=== PATIENT | male | born 1955 | race Caucasian/White ===

== ENCOUNTER 2024-04-19 19:01 | Inpatient (IN) | payer OTHER, SELFPAY ==
[2024-04-19] VITALS (7 sets, daily range): BP systolic 122–173; BP diastolic 64–106; BMI 28.8
[2024-04-19 15:44] LABS: % Basophils 0.2 % (0-2); % Immature Granulocytes 1.2 % (0-0.5); % Lymphocytes 13.2 % (20.5-51.1); % Neutrophils 81.4 % (42.2-75.2); Absolute Immature Granulocytes 0.1 10^3/uL (0-0.05); Absolute Lymphocytes 1.4 10^3/uL (1.2-3.4); Absolute Monocytes 0.4 10^3/uL (0.1-0.6); Absolute Neutrophils 8.8 10^3/uL (1.4-6.5); Hematocrit 32.5 % (39.0-52.0); Hemoglobin 10.8 g/dL (13.0-18.0); Mean Corp Hgb Conc. 33.2 g/dL (33.0-37.0); Mean Corpuscular Hgb 29.1 pg (27.0-31.0); Mean Corpuscular Volume 87.6 fL (80.0-94.0); Mean Platelet Volume 10.1 fL (7.4-10.4); Nucleated Red Blood Cells % 0 % (-); Platelet Count 272 10^3/uL (130-400); Red Blood Cell Count 3.71 10^6/uL (4.70-6.10); Red Cell Dist. Width 14.4 % (11.5-14.5); White Blood Cell Count 10.8 10^3/uL (4.8-10.8)
[2024-04-19 16:37] LABS: NT-proBNP 117 pg/ml
[2024-04-19 17:11] LABS: ALT (SGPT) 18 U/L (0-50); AST (SGOT) 17 U/L (17-59); Albumin 4.2 g/dl (3.5-5.0); Alkaline Phosphatase 81 U/L (38-126); Blood Urea Nitrogen 24 mg/dl (9-20); Calcium 9.3 mg/dl (8.4-10.2); Carbon Dioxide 22 mmol/L (22-30); Chloride 103 mmol/L (98-107); Glucose 152 mg/dl (70-99); Potassium 4.5 mmol/L (3.5-5.1); Sodium 139 mmol/L (135-145); Total Bilirubin 0.4 mg/dl (0.2-1.3); Total Protein 7.2 g/dl (6.3-8.2); eGFR > 60.00
[2024-04-19 17:17] LABS: APTT 28.1 Sec (23.4-35.0); INR 1.07; PT 13.8 Sec (11.4-14.6)
--- NOTE | 2024-04-19 17:19 | ED.GENMED ---
History of Present Illness
<Dhiraj Mathews MD, Resident - Last Filed: 04/19/24 19:21>
General
Chief Complaint: Breathing Problem
Source: patient
Time Seen by Provider: 04/19/24 16:28
Travel History
Have you traveled to any high risk areas for coronavirus over the past 14 days?: No
Have you had any contact with someone who has COVID-19?: No
Do you have any symptoms of coronavirus? Fever > 100 degrees, chills, cough, shortness of breath, sore throat, loss of taste or smell, muscle aches, or headache?: No
History of Present Illness
History of Present Illness:
Jaime Huerta, 68-year-old male with a history of cerebrovascular accident, hypertension and hyperlipidemia, has had dyspnea on exertion for the past 3 weeks. No history of known pulmonary disease and never had dyspnea prior to this. The dyspnea
has progressed, and now is dyspneic with walking 20-30 feet. Also has chest tightness concurrent with the dyspnea. He has a stress test scheduled next week but decided to come to the emergency since his symptoms were progressing slightly. He is on
clopidogrel since his CVA. Denies any symptoms at rest. Denies any other symptoms.
Past History
<Dhiraj Mathews MD, Resident - Last Filed: 04/19/24 19:21>
Past History
ED Past Medical History: CVA, HTN, Hypercholesterolemia and Other (Osteoarthritis)
Social History
Alcohol: None
Review of Systems
<Dhiraj Mathews MD, Resident - Last Filed: 04/19/24 19:21>
Review of Systems
Allergies reviewed?: Yes
All Other Systems: ROS reviewed and negative except as documented in HPI and ROS
Phy Exam
<Dhiraj Mathews MD, Resident - Last Filed: 04/19/24 19:21>
General Physical Exam
General Presentation: well appearing and no apparent distress
General Skin: warm and dry
General Habitus: normal
General Mental: alert
General Hydration: appears well hydrated
ENT Exam
ENT Exam: EOMI, pharynx normal, neck supple and normocephalic
Eye Exam
Eye Exam: PERRL, cornea clear and conjunctiva normal
Cardiovascular Exam
Cardiovascular Exam: regular rate/rhythm, no edema, no murmur and normal peripheral pulses
Pulmonary Exam
Pulmonary Exam: lungs clear, no respiratory distress, no rales, no crackles, no rhonchi, no stridor, no wheezing and no cough
Gastrointestinal Exam
Gastrointestinal Exam: normal bowel sounds, non tender, soft, no organomegaly, no pulsatile mass and non distended
Neurological Exam
Neurological Exam: alert, oriented x3, no motor deficits and speech normal
Musculoskeletal Exam
Musculoskeletal Exam: full ROM and no edema
Skin Exam
Skin Exam: normal color, warm/dry, no rash and no petechia
Psychiatric Exam
Psychiatric Exam: normal mood/affect
Scores
<Dhiraj Aiden Mathews MD, Resident - Last Filed: 04/19/24 19:21>
Heart Failure Risk
Heart Failure Risk Score: Yes
History of Stroke or TIA: Yes
History of intubation for respiratory distress: No
Heart rate on ED arrival >/= 110: No
SaO2 <90% on arrival on room air: No
HR >/=110 during 3min walk test (or too ill to perform test): No
ECG has acute ischemic changes: No
Urea >/=12mmol/L (BUN 33.6mg/dL): No
Serum CO2>/=35mmol/L: No
Troponin I or T elevated to OK Level (0.4mg/dL): Yes
NT-proBNP >/=5,000ng/L (5,000pg/ml): No
HF Risk Score: 3
Admission Status: HIGH RISK 15.9% Consider SNF treatment or admission to hospital
Course
<Dhiraj Mathews MD, Resident - Last Filed: 04/19/24 19:21>
Orders/Labs/Results
Orders:
Orders
04/19/24 15:29
EKG [Electrocardiogram (*1)] Urgent
Reason for Study: Shortness of Breath
EKG- Treatment ONCE
04/19/24 15:32
BNP [NT-proBNP] Urgent
CBC/With Diff [Complete Blood Count/With Diff] Urgent
Troponin I Urgent
04/19/24 16:42
Comprehensive Metabolic Panel Urgent
04/19/24 16:46
PT/INR [Prothrombin Time] Urgent
PTT Urgent
04/19/24 18:02
Heparin 4,000 units IV NOW STA
04/19/24 18:05
Heparin 4,000 units IV NOW STA
Nursing to Place Non Medication Order As Directed
Physician Order: PTT 6 hours after initial start of Heparin infusion
04/19/24 18:08
CARDIOLOGY CONSULT Urgent
Consulting Provider: Ham Gutierrez
Was physician already notified: Yes
04/19/24 18:15
Heparin 46475 Units/250 ml 25,000 units in 250 ml IV PER PROTOCOL
Weight to be used for heparin protocol in kilograms (kg):: 85
Protocol:: Cardiac Tx/Acute Coronary
PTT Goal Range to be used:: PTT 73 to 111 seconds
Order type:: Initial
INITIAL Infusion Dose (UNITS/KG/hr) & then follow protocol:: 15 units/kg/hr
Infusion Dose in UNITS/hr & then follow protocol (UNITS/hr):: 1,300
INFUSION RATE in mL/hr & then follow protocol (mL/hr):: 13
PTT less than or equal to 64 seconds:: Increase rate by 200 units/hr (+ 2 mL/hr)
PTT 64.1 to 72.9 seconds:: Increase rate by 100 units/hr (+ 1 mL/hr)
PTT 73 to 111 seconds:: Target Range. No change in rate.
PTT 111.1 to 130.9 seconds:: Decrease rate by 100 units/hr (- 1 mL/hr)
PTT 131 to 199.9 seconds:: HOLD for 1 hr. Then decrease rate by 200 units/hr (- 2 mL/hr)
PTT greater than or equal to 200 seconds:: HOLD for 2 hrs & Notify Provider. Then decrease by 200 units/hr (-
2 mL/hr)
Lab follow-up:: Each change, PTT q6h until 2 consecutive are therapeutic. Then PTT
daily.
04/19/24 18:40
Admit/Transfer Patient As Directed
Co-Sign Provider:
Level of Care: Inpatient admission
Assign to:: Telemetry
Physician / Group: johnny
Diagnosis: chest pain
Reason for Telemetry: Chest Pain syndromes
Date to Stop Telemetry: 04/21/24
Time to Stop Telemetry: 11:00
Reason for Hospitalization: chest pain
Expected length of stay greater than two midnights?: Yes
ELOS- Estimated Length of Stay in days: 3
I certify the patient meets the requirements for IP care: Yes
PRN Pain Medication Management As Directed
May give lesser potent ordered pain med per pt: Yes
preference::
Protocol:: Medication orders for pain may be administered in a
manner that supports deferring to patient preference
when the pt is:
- Requesting an ordered lesser potent pain medication.
Least to most potent pain medications are defined
as: acetaminophen < NSAID < tramadol < opioids
(morphine, oxycodone, hydromorphone).
- Requesting a lesser dose of the same medication IF
ORDERED.
- Requesting a less intrusive route of administration
if both routes are prescribed by the provider (PO <
IV).
04/19/24 18:42
Code Status As Directed
Resuscitation Status: Full Code
04/19/24 18:44
CR Chest - 2 Views Stat
Comment:
Reason For Exam: sob,chest pain
04/19/24 19:30
Troponin I Q6H
04/20/24 01:30
Troponin I Q6H
04/20/24 07:30
Troponin I Q6H
04/21/24 11:00
DC Protocol for Telemetry ONCE
Abnormal Lab Results
04/19/24 04/19/24
15:32 16:42
RBC 3.71 L 10^6/uL
(4.70-6.10)
Hgb 10.8 L g/dL
(13.0-18.0)
Hct 32.5 L %
(39.0-52.0)
Abs Immat Gran (auto) 0.1 H 10^3/uL
(0-0.05)
Absolute Neuts (auto) 8.8 H 10^3/uL
(1.4-6.5)
Immature Gran % 1.2 H %
(0-0.5)
Neutrophils % 81.4 H %
(42.2-75.2)
Lymphocytes % 13.2 L %
(20.5-51.1)
BUN 24 H mg/dl
(9-20)
Glucose 152 H mg/dl
(70-99)
Troponin I 0.080 H* ng/ml
04/19/24 15:32
04/19/24 16:42
Vital Signs
Initial and Last Documented VS:
Initial Vital Signs
Temp Pulse Resp BP Pulse Ox
98.1 F 99 24 171/106 97
04/19/24 15:24 10/04/24 15:24 04/19/24 15:24 04/19/24 15:24 04/19/24 15:24
Last Documented Vital Signs
Temp Pulse Resp BP Pulse Ox
98.1 F 85 16 161/86 97
04/19/24 15:24 04/19/24 18:00 04/19/24 18:04 04/19/24 18:00 04/19/24 18:00
prashanth;Dariel Lazar DO - Last Filed: 04/19/24 18:06>
Orders/Labs/Results
Orders:
Orders
04/19/24 15:29
EKG [Electrocardiogram (*1)] Urgent
Reason for Study: Shortness of Breath
EKG- Treatment ONCE
04/19/24 15:32
BNP [NT-proBNP] Urgent
CBC/With Diff [Complete Blood Count/With Diff] Urgent
Troponin I Urgent
04/19/24 16:42
Comprehensive Metabolic Panel Urgent
04/19/24 16:46
PT/INR [Prothrombin Time] Urgent
PTT Urgent
04/19/24 18:02
Heparin 4,000 units IV NOW STA
04/19/24 18:05
Heparin 4,000 units IV NOW STA
Nursing to Place Non Medication Order As Directed
Physician Order: PTT 6 hours after initial start of Heparin infusion
04/19/24 18:08
CARDIOLOGY CONSULT Urgent
Consulting Provider: Ham Gutierrez
Was physician already notified: Yes
04/19/24 18:15
Heparin [id number] Units/250 ml 25,000 units in 250 ml IV PER PROTOCOL
Weight to be used for heparin protocol in kilograms (kg):: 85
Protocol:: Cardiac Tx/Acute Coronary
PTT Goal Range to be used:: PTT 73 to 111 seconds
Order type:: Initial
INITIAL Infusion Dose (UNITS/KG/hr) & then follow protocol:: 15 units/kg/hr
Infusion Dose in UNITS/hr & then follow protocol (UNITS/hr):: 1,300
INFUSION RATE in mL/hr & then follow protocol (mL/hr):: 13
PTT less than or equal to 64 seconds:: Increase rate by 200 units/hr (+ 2 mL/hr)
PTT 64.1 to 72.9 seconds:: Increase rate by 100 units/hr (+ 1 mL/hr)
PTT 73 to 111 seconds:: Target Range. No change in rate.
PTT 111.1 to 130.9 seconds:: Decrease rate by 100 units/hr (- 1 mL/hr)
PTT 131 to 199.9 seconds:: HOLD for 1 hr. Then decrease rate by 200 units/hr (- 2 mL/hr)
PTT greater than or equal to 200 seconds:: HOLD for 2 hrs & Notify Provider. Then decrease by 200 units/hr (-
2 mL/hr)
Lab follow-up:: Each change, PTT q6h until 2 consecutive are therapeutic. Then PTT
daily.
04/19/24 18:40
Admit/Transfer Patient As Directed
Co-Sign Provider:
Level of Care: Inpatient admission
Assign to:: Telemetry
Physician / Group: johnny
Diagnosis: chest pain
Reason for Telemetry: Chest Pain syndromes
Date to Stop Telemetry: 04/21/24
Time to Stop Telemetry: 11:00
Reason for Hospitalization: chest pain
Expected length of stay greater than two midnights?: Yes
ELOS- Estimated Length of Stay in days: 3
I certify the patient meets the requirements for IP care: Yes
PRN Pain Medication Management As Directed
May give lesser potent ordered pain med per pt: Yes
preference::
Protocol:: Medication orders for pain may be administered in a
manner that supports deferring to patient preference
when the pt is:
- Requesting an ordered lesser potent pain medication.
Least to most potent pain medications are defined
as: acetaminophen < NSAID < tramadol < opioids
(morphine, oxycodone, hydromorphone).
- Requesting a lesser dose of the same medication IF
ORDERED.
- Requesting a less intrusive route of administration
if both routes are prescribed by the provider (PO <
IV).
04/19/24 18:42
Code Status As Directed
Resuscitation Status: Full Code
04/19/24 18:44
CR Chest - 2 Views Stat
Comment:
Reason For Exam: sob,chest pain
04/19/24 19:30
Troponin I Q6H
04/20/24 01:30
Troponin I Q6H
04/20/24 07:30
Troponin I Q6H
04/21/24 11:00
DC Protocol for Telemetry ONCE
Abnormal Lab Results
04/19/24 04/19/24
15:32 16:42
RBC 3.71 L 10^6/uL
(4.70-6.10)
Hgb 10.8 L g/dL
(13.0-18.0)
Hct 32.5 L %
(39.0-52.0)
Abs Immat Gran (auto) 0.1 H 10^3/uL
(0-0.05)
Absolute Neuts (auto) 8.8 H 10^3/uL
(1.4-6.5)
Immature Gran % 1.2 H %
(0-0.5)
Neutrophils % 81.4 H %
(42.2-75.2)
Lymphocytes % 13.2 L %
(20.5-51.1)
BUN 24 H mg/dl
(9-20)
Glucose 152 H mg/dl
(70-99)
Troponin I 0.080 H* ng/ml
04/19/24 15:32
04/19/24 16:42
Vital Signs
Initial and Last Documented VS:
Initial Vital Signs
Temp Pulse Resp BP Pulse Ox
98.1 F 99 24 171/106 97
04/19/24 15:24 04/19/24 15:24 04/19/24 15:24 04/19/24 15:24 04/19/24 15:24
Last Documented Vital Signs
Temp Pulse Resp BP Pulse Ox
98.1 F 85 16 161/86 97
04/19/24 15:24 04/19/24 18:00 04/19/24 18:04 04/19/24 18:00 04/19/24 18:00
<Dhiraj Mathews MD, Resident - Last Filed: 04/19/24 19:21>
*Critical Care Note
Total Time (30-74mins, 75-104mins- exclusive of procedures): Not Applicable
ED Attending Note
<Dhiraj Mathews MD, Resident - Last Filed: 04/19/24 19:21>
-
Portions of this chart may have been created with voice recognition software.� Occasional wrong word or��sound alike� substitutions may have occurred due to the inherent limitations of voice recognition software.
<Dariel Lazar DO - Last Filed: 04/19/24 18:06>
ED Attending Note
Patient seen and examined by attending physician: Yes
I performed a history and physical exam of patient and discussed management with resident, I reviewed resident's note and agree with documented findings and plan of care.: Yes
ED Attending Note:
I agree with Dr. Mathews's note.
68-year-old male presents for evaluation due to significant shortness of breath with exertion associate with some tightness in the chest. Patient began having shortness breath with exertion about 3 weeks ago. He was walking around [place]
when he began having shortness of breath after walking about 50 or so feet. He had to sit down on a bench to rest and the symptoms went away. Patient did help with his primary care provider and a stress test is scheduled for April 25. However
the patient noted today that he was experiencing similar symptoms with walking shorter distances. He became very nervous about it prompting his ER visit. No chest pain at the time of my evaluation.
General: Awake, Alert, Oriented X3. No acute distress.
Vitals: unremarkable
Head: Atraumatic
Eyes: Pupils equal, EOMI
Lungs: Clear and equal b/l
Heart: Regular rate, no murmurs
Abd: Soft, Nontender, No pulsatile mass
Neuro: Nonfocal
Skin: Warm, dry, no rash
Extremities: pulses equal b/l, no edema
EKG: Sinus rhythm at 99 bpm with evidence of LVH. There are nonspecific ST changes but no significant ST elevation or depression.
Labs show a mild bump in troponin. Given this the patient will require hospitalization for cardiac workup.
Discharge Plan
Departure
Patient Disposition: Admit
Date of Disposition: 04/19/24
Time of Disposition: 18:00
Presentation/result/management discussed w/ accepting MD/DO: Hospitalist
Discharge Problem:
Dyspnea on exertion
Interventions
Interventions:
*Risk Screen - Suicide Last Done: 04/19/24 16:16
*General Assessment Last Done: 04/19/24 16:16
*Neglect/Abuse Screening Last Done: 04/19/24 16:16
ED- Fall Risk Assessment Last Done: 04/19/24 16:05
*ED COVID-19 Vaccine History Last Done: 04/19/24 16:06
ED- Cardiac Assessment Last Done: 04/19/24 16:16
ED- Pulmonary Assessment Last Done: 04/19/24 16:06
--- NOTE | 2024-04-19 18:10 | HPS.HSE ---
Family Physician
-
Family Physician: Louis Toribio
Chief Complaint
-
sob,chest pressure
History of Present Illness
68-year-old male with a history of cerebrovascular accident, hypertension and hyperlipidemia with sob and mid sternum chest pressure for past three weeks. patient stated chest pressure is non radiating. sob and chest pressure with activity only.
symptoms relieves with rest. denied NELSON, dizzy or syncopal episode. denied fever, chills, runny nose, congestion, cough. denied abdominal pain,n v,d. denied dysuria or hematuria.
noted elevated trop, initiated on heparin drip. admitting for further management.
Medical History
Past Medical History
Past Medical History: Reports Other
Additional Past Medical History:
HTN
HLD
CVA
Past Surgical History: Reports Other
Additional Past Surgical History:
fatty tumor removal
Social History
Tobacco: Former Smoker
Alcohol: None
Drug: None
Living: With Family
Family History
Family History: Not pertinent
Allergies / Home Medications
Allergies reflects when Allergies were last updated in [facility].
Home Medications with original date entered in [facility]
Allergy/Medication List:
Allergies
Allergy/AdvReac Type Severity Reaction Status Date / Time
aspirin Allergy Swelling Verified 04/19/24 15:28
Home Medications
clopidogrel 75 mg tablet 75 mg PO DAILY 06/27/23
allopurinol 300 mg tablet 300 mg PO DAILY 04/19/24
celecoxib 200 mg capsule 200 mg PO BID 04/19/24
lisinopril 20 mg tablet 20 mg PO DAILY 04/19/24
naproxen sodium 220 mg tablet (Aleve) 220 mg PO [id number] PRN mild pain 04/19/24
prednisone 10 mg tablet 10 mg PO BID 04/19/24
Review of Systems
-
Constitutional: Reports No Symptoms
EENT: Reports No Symptoms
Respiratory: Reports Trouble Breathing
Cardiac: Reports Chest Pain
Abdomen/GI: Reports No Symptoms
: Reports No Symptoms
Musculoskeletal: Reports No Symptoms
Skin: Reports No Symptoms
Neurological: Reports No Symptoms
Endocrine: Reports No Symptoms
Hematologic/Lymphatic: Reports No Symptoms
Psych: Reports No Symptoms
Physical Exam
Vital Signs
Vital Signs
Temp Pulse Resp BP Pulse Ox
98.1 F 85 16 161/86 97
04/19/24 15:24 04/19/24 18:00 04/19/24 18:04 04/19/24 18:00 04/19/24 18:00
Physical Exam
General: Well Developed, Well Nourished and No Apparent Distress
HEENT: NormoCephalic, Moist mucous membranes and Atraumatic
Respiratory: Clear
Cardiac: S1/S2 and Regular Rhythm; No Murmur or Rub
GI: Soft, Non Tender, Non Distended and Normal Bowel Sounds; No Organomegaly
Rectal: Deferred by Provider
Musculoskeletal: No Clubbing, No Cyanosis and No Edema
Skin: No Rash
Neuro: AO x 3 and Nonfocal/grossly intact
Psych: Calm
Laboratory Results
-
04/19/24 15:32
04/19/24 16:42
Laboratory Results
PT 13.8 Sec (11.4-14.6) 04/19/24 16:46
INR 1.07 04/19/24 16:46
APTT 28.1 Sec (23.4-35.0) 04/19/24 16:46
Total Bilirubin 0.4 mg/dl (0.2-1.3) 04/19/24 16:42
AST 17 U/L (17-59) 04/19/24 16:42
ALT 18 U/L (0-50) 04/19/24 16:42
Alkaline Phosphatase 81 U/L (38-126) 04/19/24 16:42
Troponin I 0.080 ng/ml H* 04/19/24 15:32
Data Reviewed
-
Lab Data: Labs Reviewed by me
Impression/Plan
-
#DAUGHERTY/chest pain r/o NSTEMI
-trop 0.080
-EKg with NSR
-initiated on heparin drip
-trend trop
-obtain ECHO
-obtain chest x ray
-cardiology consulted
#anemia likely chronic
-hgb 10.8
-no active bleeding
-ctm
# Gout
-Allopurinol
# Lower back pain
-Celebrex, naproxen, prednisone continued
# History of CVA with no residual
-Plavix continued
# DVT prophylaxis
-On heparin drip
# CODE STATUS
-Full code
--- NOTE | 2024-04-19 18:47 | W.PN.UPDATE ---
Update Note
Progress Note Update
This is an addendum to the H&P written by Felisa Christian on 04/19/2024. Patient seen examined independently with CONTINUING EDUCATION DEAN.
68-year-old male past medical history of CVA, hypertension, hyperlipidemia, osteoarthritis, gout, presenting with recurrent chest tightness with shortness of breath with exertion which has progressed. Scheduled to have stress test next week.
Blood pressure initially 161/86 otherwise currently improved. EKG without any acute ischemic changes. Troponin of 0.08.
History suggestive of stable angina, with concern for possible developing unstable angina/NSTEMI. Trend troponins. Check chest x-ray. Continue Plavix. Heparin drip. Check echocardiogram. Cardiology consulted.
[2024-04-19] MEDS: HEPARIN 4000 UNITS IV (18:49)
[2024-04-19] MEDS: HEPARIN 25000 UNITS/250 ML IV (18:49)
[2024-04-19] MEDS: CELEBREX 200 MG PO (21:03)
[2024-04-19] MEDS: DELTASONE 10 MG PO (21:03)
[2024-04-19 22:30] LABS: Troponin I 0.535 ng/ml
[2024-04-20] VITALS (30 sets, daily range): BP systolic 136–185; BP diastolic 59–95; BMI 28.1
[2024-04-20 01:20] LABS: INR 1.11; PT 14.2 Sec (11.4-14.6)
[2024-04-20 01:21] LABS: APTT 74.2 Sec (23.4-35.0)
--- NOTE | 2024-04-20 03:25 | PTCARENOTE ---
Pt admitted from ED. Pt AAOx3, no c/o pain. Ambulated from stretcher to bed without issues. Pt afebrile, VSS. R AC IV C/D/I, infusing heparin gtt. Heparin protocol in place. Continues with q6 troponin levels and EKG. Lungs clear, pt on room
air. No N/V or stools reported. Skin intact. Call lezama within reach and bed in lowest position.
[2024-04-20 03:31] LABS: Troponin I 0.543 ng/ml
[2024-04-20 06:49] LABS: Hematocrit 30.5 % (39.0-52.0); Hemoglobin 10.2 g/dL (13.0-18.0); Mean Corp Hgb Conc. 33.4 g/dL (33.0-37.0); Mean Corpuscular Hgb 29.8 pg (27.0-31.0); Mean Corpuscular Volume 89.2 fL (80.0-94.0); Mean Platelet Volume 10.3 fL (7.4-10.4); Platelet Count 238 10^3/uL (130-400); Red Blood Cell Count 3.42 10^6/uL (4.70-6.10); Red Cell Dist. Width 14.2 % (11.5-14.5); White Blood Cell Count 9.6 10^3/uL (4.8-10.8)
[2024-04-20 07:08] LABS: APTT 59.1 Sec (23.4-35.0)
[2024-04-20 07:29] LABS: Blood Urea Nitrogen 19 mg/dl (9-20); Calcium 8.8 mg/dl (8.4-10.2); Carbon Dioxide 22 mmol/L (22-30); Chloride 105 mmol/L (98-107); Estimated Creatinine Clearance 72 ml/min; Glucose 135 mg/dl (70-99); HDL Cholesterol 96 mg/dl; LDL Cholesterol, Calculated 151 mg/dl; Potassium 4.5 mmol/L (3.5-5.1); Sodium 139 mmol/L (135-145); Total Cholesterol 271 mg/dl (50-199); Triglyceride 120 mg/dl (10-149); Very Low Density Lipoprotein 24 mg/dl (0-30); eGFR > 60.00
--- NOTE | 2024-04-20 07:37 | W.PN.HOSP.TC ---
Today's Communication/Plan
-
Transfer to IVU
ASA desensitization Hep gtt as per Cardio
ECHO Cath Monday
Assessment / Plan
Assessment / Plan
Physical Exam
General: Well Developed, Well Nourished and No Apparent Distress
HEENT: NormoCephalic, Moist mucous membranes and Atraumatic
Respiratory: Clear
Cardiac: S1/S2 and Regular Rhythm; No Murmur or Rub
GI: Soft, Non Tender, Non Distended and Normal Bowel Sounds; No Organomegaly
Musculoskeletal: No Clubbing, No Cyanosis and No Edema
Skin: No Rash
Neuro: AO x 3 and Nonfocal/grossly intact
Psych: Calm
68M CVA HTN HLD p/w sob mid sternum chest pressure for past three weeks non radiating elicited w/ activity relieved with rest. Troponin elevated, possible ACS, patient was started on heparin drip and admitted for further management
#DAUGHERTY/chest pain r/o NSTEMI
-trop trended to peak 0.543 since trended down
-EKg with NSR
-cont hep gtt
-ECHO Monday
-Chest X-ray appreciated no acute abn's
-cardiology consult appreciated transferred to IVU closer monitoring undergoing ASA desensitization protocol further planned for Cath Monday
-per discussion with Cardiology no need to cont Plavix while on hep gtt and undergoing ASA desensitization.
#mild anemia likely chronic
-monitor H&H
# Gout
-Allopurinol
# Lower back pain
-Celebrex discontinued
- continued prn naproxen and scheduled prednisone
# History of CVA with no residual
-Plavix discontinued, undergoing asa desensitization as above
-on hep gtt for possible ACS as above
# DVT prophylaxis
-On heparin drip
# CODE STATUS
-Full code
I spent a total of 50 minutes with the patient or on the floor. More than 50% of this time involved counseling and coordination of care.
Anticipated Discharge: > 48 hours
Subjective/Interval History
-
Date of Service: April 20, 2024
No acute distress appears comfortable at rest. Currently Chest pain free.
Objective Data
-
Labs:
Laboratory Results
04/20/24 04/20/24 04/20/24
00:46 06:39 13:30
WBC 9.6
Hgb 10.2 L
Hct 30.5 L
Plt Count 238
PT 14.2
INR 1.11
APTT 74.2 H 59.1 H Pending
Sodium 139
Potassium 4.5
Chloride 105
Carbon Dioxide 22
BUN 19
Creatinine 0.9
Glucose 135 H
Calcium 8.8
Vital Signs:
Vital Signs
Temp Pulse Resp BP Pulse Ox
98.4 F 63 16 149/81 98
04/20/24 03:00 04/20/24 03:00 04/20/24 03:00 04/20/24 03:00 04/20/24 03:00
I&O
04/19/24 04/20/24 04/21/24
06:59 06:59 06:59
Intake Total 480 / 480
Balance 480 / 480
[2024-04-20] MEDS: CELEBREX 200 MG PO (08:18)
[2024-04-20] MEDS: DELTASONE 10 MG PO ×2 (08:18→20:10)
[2024-04-20] MEDS: ZYLOPRIM 300 MG PO (08:18)
[2024-04-20] MEDS: ZESTRIL 20 MG PO (08:18)
--- NOTE | 2024-04-20 08:28 | CON.CAR ---
Addendum entered and electronically signed by Ham Gutierrez MD 04/20/24 12:53:
68 yo male with PMH of CVA, HTN, hyperlipidemia, ASA allergy is admitted with progressive DAUGHERTY and chest tightness. Chest pain free at rest. Exam with RRR, no murmurs, no edema. Cr 0.9. TnI peak 0.5. EKG: SB 56 with no acute ischemic changes.
NSTEMI
-cont home Plavix
-heparin drip
-ASA allergy: he will undergo densitization protocol
-plan for cath and echo Monday
Original Note:
Consultation
Consultation Request
Date/Time Consultation Requested: 04/20/2024799
Date/Time Consultation Performed: 04/20/2024799
Requesting Provider: Dr. Christian
Performing Provider: Dr. Gutierrez
Reason for Consultation: CP
Medical History
-
Chief Complaint: DAUGHERTY
History of Present Illness:
68 y/o pt history of CVA approximately 10 years ago, hypertension and hyperlipidemia. Over the last several weeks he has been having increasing dyspnea with activity. If he walks approximately 25 feet or more he starts to develop dyspnea. He
also can have some chest tightness in the center of his chest. If he stops to rest it does improve within 1 to 2 minutes. He does not have any rest symptoms. He was seen by his PCP and a stress test was ordered but is not scheduled until next
week. He has continued to have symptoms which prompted evaluation in the emergency room.
Past Medical History
Past Medical History: CVA (approx 10 years ago), HTN and Hypercholesterolemia
Past Surgical History: Other (fatty tumor removal)
Social History
Tobacco: Former Smoker (quit 50 years ago)
Alcohol: Occasional
Drug: None
Living: With Family
Family History
Family History: Reviewed & Not Pertinent (Dad possible heart issues later in life)
Allergies / Home Medications
Allergy/AdvReac Type Severity Reaction Status Date / Time
aspirin Allergy Swelling Verified 04/19/24 15:28
�Medication �Instructions �Recorded �Confirmed �Type
clopidogrel 75 mg tablet 75 mg PO DAILY 06/27/23 04/19/24 History
allopurinol 300 mg tablet 300 mg PO DAILY 04/19/24 04/19/24 History
celecoxib 200 mg capsule 200 mg PO BID 04/19/24 04/19/24 History
lisinopril 20 mg tablet 20 mg PO DAILY 04/19/24 04/19/24 History
naproxen sodium 220 mg tablet 220 mg PO [id number] PRN mild pain 04/19/24 04/19/24 History
(Aleve)
prednisone 10 mg tablet 10 mg PO BID 04/19/24 04/19/24 History
Review of Systems
-
History Source: Patient
All other systems: Negative unless noted
Constitutional: No Symptoms
EENT: No Symptoms
Respiratory: Other (DAUGHERTY)
Cardiac: Chest Pain (chest tightness)
Abdomen/GI: No Symptoms
: No Symptoms
Musculoskeletal: Joint Pain
Skin: No Symptoms
Neurological: No Symptoms
Hematologic/Lymphatic: No Symptoms
Physical Exam
Vital Signs
Temp Pulse Resp BP Pulse Ox
98.4 F 63 16 149/81 98
04/20/24 03:00 04/20/24 03:00 04/20/24 03:00 04/20/24 03:00 04/20/24 03:00
Lab Results
04/20/24 06:39
04/20/24 06:39
Troponin I Cancelled 04/20/24 07:30
Kny-Z-Cyvfzgnrdza Pept 117 pg/ml 04/19/24 15:32
Physical Exam
General: Well Developed and No Apparent Distress
HEENT: Normocephalic and Moist Mucous Membranes
Respiratory: Clear
Cardiac: S1/S2 and Regular Rhythm
GI: Soft, Non Tender and Normal Bowel Sounds
Skin: Warm and Dry
Neuro: AO x 3
Psych: Calm
Impression / Plan
-
DAUGHERTY:
- pt with ongoing DAUGHERTY for several months . Occ chest tightness associated
- elevated troponin, non specific ST abn on EKG
-IV heparin, plavix , check echo
NSTEMI:
-peak troponin 0.535
-Con't IV heparin. Pt was on plavix as OP but tells me he has not been taking it recently. It was con't on admit
-Plan will be for [facility]. Pt. will prior asa allergy. He notes it was 40 years ago. He had swelling he thinks. Of note he takes other NSAIDS currently without issues. Pt will need asa desensitization and will need to be transferred to
IVU for intense drug monitoring with this.
-will add metoprolol with hold parameters for bradycardia. HR's at rest in 50's
-LDL 151 on admit, he thinks he was on cholesterol med at home . Add atorvastatin 40mg daily here.
HTN: con't meds
hyperlipidemia: statin added
CVA: 10 years ago. Was taking plavix.
Anemia: mild anemia noted on admit with hgb 10 range . He denies bleeding.
Data Reviewed
-
EKG: Tracing Personally Visualized and interpreted (Normal sinus rhythm at [address] abnormality)
Radiology: Report Reviewed by me (Chest x-ray 04/19/2024 no acute cardiopulmonary process)
Labs: Labs Reviewed by me and Discussed with Patient
[2024-04-20 10:14] LABS: Glycohemoglobin (HgbA1c) 6.7 % (4.0-5.6)
[2024-04-20 10:43] LABS: Troponin I 0.366 ng/ml
--- NOTE | 2024-04-20 11:30 | PTCARENOTE ---
received pt from [facility] ASA desensitization. No c/o chest pain assessment WNL. Mark COLEMAN from pharmacy
[2024-04-20] MEDS: HEPARIN 25000 UNITS/250 ML IV (12:49)
[2024-04-20] MEDS: ASPIRIN FOR DESENSITIZATION 5 MG PO (12:53)
[2024-04-20] MEDS: ASPIRIN FOR DESENSITIZATION 10 MG PO (13:21)
[2024-04-20] MEDS: ASPIRIN FOR DESENSITIZATION 20 MG PO (13:52)
[2024-04-20] MEDS: ASPIRIN FOR DESENSITIZATION 40 MG PO (14:19)
[2024-04-20] MEDS: LOW STRENGTH ASPIRIN 81 MG PO (14:52)
[2024-04-20] MEDS: LOW STRENGTH ASPIRIN 162 MG PO (15:20)
[2024-04-20] MEDS: ASPIRIN 325 MG PO (16:00)
--- NOTE | 2024-04-20 16:11 | PTCARENOTE ---
Pt completed ASA Desensitization without any reaction. Family at bedside
[2024-04-20] MEDS: TRANDATE 10 MG IV (17:03)
[2024-04-20] MEDS: LIPITOR 40 MG PO (18:21)
[2024-04-20 19:41] LABS: APTT 78.8 Sec (23.4-35.0)
--- NOTE | 2024-04-20 21:11 | PTCARENOTE ---
Pt. received at change of shift. VSS, NSR on tele with HR 60s-70s. Heparin gtt currently infusing at 15ml/hr. No complaints of pain at this time. Pt. denies facial swelling or other reaction from aspirin desensitization in afternoon. Pt. with
minor nose bleed that lasted a few minutes which he states is not new for him, resolved without intervention. Pt ambulating independently in room without difficulty. Can make needs known. Call lezama within reach.
[2024-04-21 03:48] VITALS: BMI 28.3
[2024-04-21] MEDS: HEPARIN 25000 UNITS/250 ML IV ×2 (03:53→20:26)
[2024-04-21 03:56] VITALS: BP 145/77
[2024-04-21 04:06] LABS: Hematocrit 29.6 % (39.0-52.0); Hemoglobin 10.3 g/dL (13.0-18.0); Mean Corp Hgb Conc. 34.8 g/dL (33.0-37.0); Mean Corpuscular Hgb 29.8 pg (27.0-31.0); Mean Corpuscular Volume 85.5 fL (80.0-94.0); Mean Platelet Volume 10.3 fL (7.4-10.4); Platelet Count 242 10^3/uL (130-400); Red Blood Cell Count 3.46 10^6/uL (4.70-6.10); Red Cell Dist. Width 14.4 % (11.5-14.5); White Blood Cell Count 10.6 10^3/uL (4.8-10.8)
[2024-04-21 04:16] LABS: APTT 83.4 Sec (23.4-35.0)
[2024-04-21 04:30] LABS: Blood Urea Nitrogen 33 mg/dl (9-20); Calcium 9.1 mg/dl (8.4-10.2); Carbon Dioxide 21 mmol/L (22-30); Chloride 103 mmol/L (98-107); Estimated Creatinine Clearance 65 ml/min; Glucose 168 mg/dl (70-99); Potassium 5.1 mmol/L (3.5-5.1); Sodium 138 mmol/L (135-145); eGFR > 60.00
[2024-04-21 07:56] VITALS: BP 134/71
--- NOTE | 2024-04-21 08:48 | W.PN.HOSP.TC ---
Today's Communication/Plan
-
NPO after midnight for Cath
ECHO Mon
cont asa hep gtt BB as per cardio
Assessment / Plan
Assessment / Plan
Physical Exam
General: Well Developed, Well Nourished and No Apparent Distress
HEENT: NormoCephalic, Moist mucous membranes and Atraumatic
Respiratory: Clear
Cardiac: S1/S2 and Regular Rhythm; No Murmur or Rub
GI: Soft, Non Tender, Non Distended and Normal Bowel Sounds; No Organomegaly
Musculoskeletal: No Clubbing, No Cyanosis and No Edema
Skin: No Rash
Neuro: AO x 3 and Nonfocal/grossly intact
Psych: Calm
68M CVA HTN HLD p/w sob mid sternum chest pressure for past three weeks non radiating elicited w/ activity relieved with rest. Troponin elevated, possible ACS, patient was started on heparin drip and admitted for further management
#DAUGHERTY/chest pain r/o NSTEMI
-trop trended to peak 0.543 since trended down
-EKg with NSR
-cont hep gtt
-ECHO Monday
-Chest X-ray appreciated no acute abn's
-transferred to IVU closer monitoring underwent ASA desensitization protocol as per Cardio, tolerated well
-Cardio eval appreciated, NPO after midnight for Cath, cont ASA hep gtt metoprolol
#mild anemia likely chronic
-monitor H&H
# Gout
-Allopurinol
# Lower back pain
-Celebrex discontinued
- continued prn naproxen and scheduled prednisone
# History of CVA with no residual
-pt discontinued Plavix on his own
-ASA as above
# DVT prophylaxis
-On heparin drip
# CODE STATUS
-Full code
I spent a total of 50 minutes with the patient or on the floor. More than 50% of this time involved counseling and coordination of care.
Anticipated Discharge: 24 - 48 hours
Subjective/Interval History
-
Date of Service: April 21, 2024
Seen and examined at bedside in no acute distress resting comfortably in bed. Reports chest pain free. Tolerated ASA densensitization well.
Objective Data
-
Labs:
Laboratory Results
04/21/24
03:41
WBC 10.6
Hgb 10.3 L
Hct 29.6 L
Plt Count 242
APTT 83.4 H
Sodium 138
Potassium 5.1
Chloride 103
Carbon Dioxide 21 L
BUN 33 H
Creatinine 1.0
Glucose 168 H
Calcium 9.1
Vital Signs:
Vital Signs
Temp Pulse Resp BP Pulse Ox
98.4 F 59 20 145/77 98
04/21/24 07:56 04/21/24 03:56 04/21/24 07:56 04/21/24 03:56 04/21/24 07:56
I&O
04/20/24 04/21/24 04/22/24
06:59 06:59 06:59
Intake Total 480 / 480 880 / 880
Balance 480 / 480 880 / 880
[2024-04-21] MEDS: ASPIRIN 325 MG PO (09:15)
[2024-04-21] MEDS: ZYLOPRIM 300 MG PO (09:15)
[2024-04-21] MEDS: ZESTRIL 20 MG PO (09:15)
[2024-04-21] MEDS: DELTASONE 10 MG PO ×2 (09:15→20:16)
--- NOTE | 2024-04-21 11:42 | W.PN.CD ---
Today's Communication / Plan
-
cont ASA, heparin drip, beta tano
cath and echo in AM
Impression / Plan
-
NSTEMI:
-peak troponin 0.5, chest pain free
-Pt was on plavix as OP for prior CVA but tells me he has not been taking it recently: was given a dose on 04/19
-ASA allergy: underwent desensitization on 04/20
-cont low dose ASA 81mg going forward (rec'd 325 mg today)
-also heparin drip, beta tano
-cath and echo in AM
HTN: cont home lisinopril 20mg daily
hyperlipidemia: rosuvastatin 40mg added for LDL 151
CVA: 10 years ago. Was taking plavix but stopped on his own
Anemia: mild anemia noted on admit with hgb 10-11 range . He denies bleeding.
Physical Exam
Vital Signs/Labs
Vital Signs
Temp Pulse Resp BP Pulse Ox
98.4 F 63 20 134/71 98
04/21/24 07:56 04/21/24 08:00 04/21/24 07:56 04/21/24 07:56 04/21/24 08:00
04/20/24 04/21/24 04/22/24
06:59 06:59 06:59
Actual Weight 81.329 kg 82 kg
04/21/24 03:41
04/21/24 03:41
PT 14.2 Sec (11.4-14.6) 04/20/24 00:46
INR 1.11 04/20/24 00:46
APTT 83.4 Sec (23.4-35.0) H 04/21/24 03:41
Triglycerides 120 mg/dl (10-149) 04/20/24 06:39
LDL Cholesterol, Calc 151 mg/dl 04/20/24 06:39
VLDL Cholesterol, Calc 24 mg/dl (0-30) 04/20/24 06:39
HDL Cholesterol 96 mg/dl 04/20/24 06:39
04/19/24
15:32
Sgy-R-Oovjymxebul Pept 117
LAB Results
04/19/24 04/19/24 04/20/24
15:32 21:58 02:41
Troponin I 0.080 H* 0.535 H* D 0.543 H*
04/20/24 04/20/24
07:30 09:50
Troponin I Cancelled 0.366 H* D
Physical Exam
Constitutional: No acute distress and Comfortable
EENT: Moist mucous membranes
Cardiovascular: Rhythm & rate is regular, Pedal edema is absent, JVD pressure is normal and Systolic murmur absent
Respiratory: Respiratory effort normal and Lungs clear to auscul.
Neuro/Psych: AO x 3
Data Reviewed
-
Date of Service: April 21, 2024
EKG: Other (Tele:SR 60s)
Labs: Labs Reviewed by me
[2024-04-21] MEDS: TOPROL XL 25 MG PO (12:21)
[2024-04-21 13:30] VITALS: BP 155/81
[2024-04-21 16:17] VITALS: BP 140/65
[2024-04-21] MEDS: CRESTOR 40 MG PO (17:00)
--- NOTE | 2024-04-21 17:33 | PTCARENOTE ---
Pt with no c/o today. OOB ad clifton in the room, gait steady. IV heparin infusing as ordered. Room air sat 98%.
[2024-04-21 20:19] VITALS: BP 142/81
--- NOTE | 2024-04-21 21:11 | PTCARENOTE ---
Pt remains in SR with HR 60s-70s. Heparin currently infusing at 15ml/hr. No complaints of CP at this time. Pt ambulating independently in room without difficulty. Plan of care discussed and pt verbalizes understanding of NPO status at midnight
for cardiac cath in AM. Can make needs known. Call lezama within reach.
[2024-04-21 22:52] VITALS: BP 139/74
[2024-04-22] VITALS (13 sets, daily range): BP systolic 118–182; BP diastolic 53–80; BMI 28.0
[2024-04-22 04:12] LABS: Hematocrit 30.6 % (39.0-52.0); Hemoglobin 10.4 g/dL (13.0-18.0); Mean Corpuscular Hgb 29.3 pg (27.0-31.0); Mean Corpuscular Volume 86.2 fL (80.0-94.0); Mean Platelet Volume 10.3 fL (7.4-10.4); Platelet Count 276 10^3/uL (130-400); Red Blood Cell Count 3.55 10^6/uL (4.70-6.10); Red Cell Dist. Width 14.2 % (11.5-14.5); White Blood Cell Count 11.9 10^3/uL (4.8-10.8)
[2024-04-22 04:58] LABS: Blood Urea Nitrogen 40 mg/dl (9-20); Calcium 9.7 mg/dl (8.4-10.2); Carbon Dioxide 19 mmol/L (22-30); Chloride 102 mmol/L (98-107); Estimated Creatinine Clearance 72 ml/min; Glucose 149 mg/dl (70-99); Sodium 137 mmol/L (135-145); eGFR > 60.00
[2024-04-22] MEDS: DELTASONE PO (08:00)
[2024-04-22] MEDS: LOW STRENGTH ASPIRIN 81 MG PO (08:12)
[2024-04-22] MEDS: ZYLOPRIM 300 MG PO (08:12)
[2024-04-22] MEDS: FLUSH (NSS) 1 FLUSH IV (08:12)
[2024-04-22] MEDS: ZESTRIL 20 MG PO (08:12)
[2024-04-22] MEDS: TOPROL XL 25 MG PO (08:12)
--- NOTE | 2024-04-22 09:32 | CM ---
Reviewed chart. Met with Mr. Huerta to review discharge plans. He states prior to admission he resides with his significant other in a one stroy home with one step to enter. He states prior to admission he was independent with ambulation and
adls. most of the time. He states he sometime uses a single point cane when needed. He states he has a single point can at home. He states he has a prescription plan with [employer] and uses [facility]. Medical work-up in progress. The discharge
plan is to return home with his significant other when medically stable.
--- NOTE | 2024-04-22 09:40 | PTCARENOTE ---
Received patient this morning resting in bed, IV heparin infusing at 1500 units/hr, PTT at therapeutic level. Patient denies any chest pain or sob. NPO for dental laboratory technology teacher today, given AM meds with a sip of water.
--- NOTE | 2024-04-22 14:19 | PTCARENOTE ---
Report given to golf course laborer, patient taken for cardiac cath, waiting in the room.
--- NOTE | 2024-04-22 15:07 | W.PN.HOSP.TC ---
Today's Communication/Plan
-
LHC
hep ggt, statin, bb, asa
Assessment / Plan
Assessment / Plan
Physical Exam
General: Well Developed, Well Nourished and No Apparent Distress
HEENT: NormoCephalic, Moist mucous membranes and Atraumatic
Respiratory: Clear
Cardiac: S1/S2 and Regular Rhythm; No Murmur or Rub
GI: Soft, Non Tender, Non Distended and Normal Bowel Sounds; No Organomegaly
Musculoskeletal: No Clubbing, No Cyanosis and No Edema
Skin: No Rash
Neuro: AO x 3 and Nonfocal/grossly intact
Psych: Calm
68M CVA HTN HLD p/w sob mid sternum chest pressure for past three weeks non radiating elicited w/ activity relieved with rest. Troponin elevated, possible ACS, patient was started on heparin drip and admitted for further management
#DAUGHERTY/chest pain
#NSTEMI
-trop trended to peak 0.543 since trended down
-EKg with NSR
-cont hep gtt
-ASA, BB, statin, ACEI
-ECHO - EF 60-65%;
-LHC today
-Chest X-ray appreciated no acute abn's
-transferred to IVU closer monitoring underwent ASA desensitization protocol as per Cardio, tolerated well
#mild anemia likely chronic
-monitor H&H
# Gout
-Allopurinol
# Lower back pain
-Celebrex discontinued
- continued prn naproxen and scheduled prednisone
# History of CVA with no residual
-pt discontinued Plavix on his own
-ASA as above
# DVT prophylaxis
-On heparin drip
# CODE STATUS
-Full code
I spent a total of 48 minutes with the patient or on the floor. More than 50% of this time involved counseling and coordination of care.
Anticipated Discharge: 24 - 48 hours
Subjective/Interval History
-
Date of Service: April 22, 2024
No acute events, sitting in chair resting comfortably
Objective Data
-
Labs:
Laboratory Results
04/22/24
03:48
WBC 11.9 H
Hgb 10.4 L
Hct 30.6 L
Plt Count 276
APTT 93.0 H
Sodium 137
Potassium 5.0
Chloride 102
Carbon Dioxide 19 L
BUN 40 H
Creatinine 0.9
Glucose 149 H
Calcium 9.7
Vital Signs:
Vital Signs
Temp Pulse Resp BP Pulse Ox
98.1 F 58 18 135/74 99
04/22/24 11:47 04/22/24 12:00 04/22/24 11:47 04/22/24 11:49 04/22/24 11:47
I&O
04/21/24 04/22/24 04/23/24
06:59 06:59 06:59
Intake Total 880 / 880 180 / 180
Balance 880 / 880 180 / 180
Review of Systems
-
History Source: Patient
All other systems: Not reviewed unless documented
Data Reviewed
-
Diagnostic Radiology: Image personally visualized and interpreted and Report Reviewed by me
Labs: Labs Reviewed by me
[2024-04-22 15:45] LABS: ACT-LR - POC 223 Seconds (116-155)
[2024-04-22 15:54] LABS: ACT-LR - POC 236 Seconds (116-155)
[2024-04-22 15:59] LABS: ACT-LR - POC 268 Seconds (116-155)
[2024-04-22 16:00] LABS: ACT-LR - POC 260 Seconds (116-155)
--- NOTE | 2024-04-22 17:14 | ITS.CL.PN ---
[facility] - Procedure Note
Procedure
Procedure Note:
CARDIAC CATHETERIZATION REPORT
Date of Procedure: 04/22/24
Referring: Dr. Ham Gutierrez
INDICATION: NSTEMI
PROCEDURE:
1. Left heart catheterization
2. Coronary angiography
3. iFR LAD
4. PCI with DAISY to ramus/OM1 for acute MA
ACCESS:
6 [place] right radial artery
6 [place] right femoral artery
CATHETERS:
1. 6 [place] JR 4 (from radial)
2. 6 [place] JL 4 (from femoral)
3. 6 [place] EBU 3.5 guide
HEMODYNAMIC DATA
LV 152/13/ (EDP 19)
AO 155/75 (mean 106)
CORONARY ANGIOGRAPHY
Dominance: right
LM: mild disease
LAD: large vessel giving rise to one large diagonal branch and wrapping around the apex. There is a 40% stenosis just after the diagonal takeoff that was further assessed with iFR. There is a 70% stenosis in the smaller branch of the diagonal.
LCx: gives rise to a moderate caliber OM1/ramus and a moderate caliber OM2. There is a subtotal occlusion of the ramus/OM1 with MOIRA 1 flow distally. There is a 95% stenosis in the OM2 with MOIRA 2-3 flow distally.
RCA: large vessel that gives rise to a medium-caliber RPDA and large RPL system. There are serial focal 40% and 90% stenoses in the distal RCA with MOIRA 3 flow distally. There is otherwise mild disease.
iFR of LAD
The decision was made to perform physiologic testing. The diagnostic catheter was removed over a wire and exchanged for a EBU 3.5 guiding catheter. The guiding catheter was advanced into the ascending aorta and seated in the LMCA. Additional
heparin was given to obtain an ACT greater than 250 seconds. An iFR wire was zeroed outside of the body, then inserted into the guiding sheath. The wire was advanced and the transducer was normalized just outside of the guiding catheter tip. The
wire was advanced into the mid LAD distal to the stenosis. Three iFR measurements were taken. The lesion was determined to be nonocclusive (0.95).
PCI to the OM1/ramus for Acute MA
The decision was made to proceed with PCI of the OM1/ramus. The vessel was wired with a Runthrough coronary wire and a second protection wire was placed in the LCx. Initial lesion preparation was performed with a 1.5x10 mm compliant balloon with
yazidi to MOIRA 3 flow distally. Further lesion preparation was performed with a 2.0x15 mm balloon with full expansion. A 2.0x22 mm Evangelista Uintah DAISY was delivered at 12 isidro. Angiography demonstrated an excellent result without complication. The
wire was removed from the OM1. Attention was then turned to the OM2. The Runthrough wire was unable to advance past the lesion. A Whisper coronary wire was also unable to advance past the lesion. Give contrast and radiation usage, the decision was
made to end the procedure with plan for future complete revascularization of the OM2 and RCA. Final angiography demonstrated no evidence of complication and MOIRA 3 flow in all branches. The wire and guide were removed. Hand injection angiography
confirmed a mid-femoral head COVERING MACHINE TENDER stick and thus the femoral arteriotomy was closed with Angioseal x1. The radial artery was closed with a TR band. The patient was given 180 mg Ticagrelor on the table and taken to the [facility] in stable condition.
Closure Device: TR band, 6F Angioseal
Radiation (mGy): 2263
DAP (cm2.Gy): 122
Fluoroscopy time (minutes): 24.5
CONCLUSIONS
1. Two-vessel coronary artery disease in the setting of NSTEMI with culprit sub-total occlusion of the ramus/OM1, status post PCI with a 2.0x22 mm [place]l [place] DAISY with excellent result.
2. Mildly elevated LV filling pressure and no aortic stenosis.
RECOMMENDATIONS:
1. Expectant management after cardiac catheterization via right radial and right femoral approach.
2. Limited weight bearing on the right wrist for one week.
3. Bed rest for 4 hours.
4. Continue DAPT with ASA/ticagrelor for at least 12 months given NSTEMI.
5. High intensity statin, goal LDL<55. Check Lp(a).
6. Continue metoprolol for goal HR 60.
7. Aggressive management of hypertension. Continue lisinopril.
8. Staged revascularization of the OM2 and the RCA should be performed on this admission or in the next several weeks.
Copy to: Louis Toribio MD
Signed: Jose Eduardo Walsh MD, PhD
[2024-04-22] MEDS: CRESTOR 40 MG PO (18:06)
[2024-04-22] MEDS: DELTASONE 10 MG PO (19:20)
--- NOTE | 2024-04-22 19:28 | PTCARENOTE ---
Patient returned from electrical laboratory technician at 1700. Radial band in place right wrist, pulse ox 97% on right hand. Dressing right groin is dry and intact. Patient has been compliant with post cath restrictions, VSS, denies any pain or discomfort, call lezama in
reach.
[2024-04-23] VITALS (12 sets, daily range): BP systolic 101–146; BP diastolic 46–75; BMI 27.6
--- NOTE | 2024-04-23 01:52 | PTCARENOTE ---
Received care of patient at change of shift. TR band removed at 21:10 without any complications. Dry dressing applied. Right radial slightly ecchymotic and no hematoma noted. Right fem artery dressing C/D/I, no hematoma noted at this time. Site w/
small ecchymosis near dressing. Right pedal pulse positive w/ Doppler. Tele remains Sinus Vadim-NSR at rest. Denies any chest pain or dizziness. Ambulates w/ standby assist. Aware of POC, call lezama within reach.
[2024-04-23 04:40] LABS: Hematocrit 32.4 % (39.0-52.0); Mean Corpuscular Hgb 29.6 pg (27.0-31.0); Mean Corpuscular Volume 87.1 fL (80.0-94.0); Mean Platelet Volume 10.2 fL (7.4-10.4); Platelet Count 279 10^3/uL (130-400); Red Blood Cell Count 3.72 10^6/uL (4.70-6.10); Red Cell Dist. Width 14.4 % (11.5-14.5); White Blood Cell Count 12.3 10^3/uL (4.8-10.8)
[2024-04-23 04:49] LABS: APTT 24.5 Sec (23.4-35.0)
[2024-04-23 04:58] LABS: Blood Urea Nitrogen 36 mg/dl (9-20); Calcium 9.5 mg/dl (8.4-10.2); Carbon Dioxide 22 mmol/L (22-30); Chloride 101 mmol/L (98-107); Estimated Creatinine Clearance 59 ml/min; Glucose 141 mg/dl (70-99); Potassium 4.8 mmol/L (3.5-5.1); Sodium 136 mmol/L (135-145); eGFR > 60.00
[2024-04-23] MEDS: ZESTRIL 20 MG PO (08:15)
[2024-04-23] MEDS: DELTASONE 10 MG PO ×2 (08:15→20:07)
[2024-04-23] MEDS: BRILINTA 90 MG PO (08:16)
[2024-04-23] MEDS: LOW STRENGTH ASPIRIN 81 MG PO (08:16)
[2024-04-23] MEDS: TOPROL XL 25 MG PO (08:17)
[2024-04-23] MEDS: ZYLOPRIM 300 MG PO (08:18)
--- NOTE | 2024-04-23 08:52 | CM ---
Reviewed chart. Received consult regarding Christina coat. Telephone call to [employer] to check on co-pay. His co-pay would be $47.00 a month or $141.00 for 90 days. Met with Mr. Huerta to review co-pay cost. He feels $47.00 a month is
something he can not affors. Updated QUALITY CLOTH TESTER rregarding above. Prior to admission he resides with his significant other in a one story home with one step to enter. Prior to admission he was independent with ambulation and adls. He does mot have any
DME in the home. He has a prescription plan with [employer] and uses [facility]. Medical work-up in progress, The discharge plan is to return home with his significant other when medically stable.
--- NOTE | 2024-04-23 09:01 | W.CARD.POSTP ---
Post PCI Follow Up
Procedure
Procedure/Date: 04/22/24- subtotal occlusion of Ramus/OM1, s/p successful angioplasty/DAISY x1
residual 95% OM2, 40-90% focal stenoses in distal RCA
Subjective: denies cp/palps/dyspnea
oob ambulating
radial and femoral cath sites without pain
Site
Site: Radial: Right and No ht/bleeding, distal pulses palpable
Site: Femoral with Internal Closure Device: Right and No ht/bleeding, distal pulses palpable
Tele / EKG
SB/SR 60s, no acute changes, no VT/arrhythmia
Labs
04/23/24 04:21
04/23/24 04:21
PT 14.2 Sec (11.4-14.6) 04/20/24 00:46
INR 1.11 04/20/24 00:46
APTT 24.5 Sec (23.4-35.0) 04/23/24 04:21
Triglycerides 120 mg/dl (10-149) 04/20/24 06:39
LDL Cholesterol, Calc 151 mg/dl 04/20/24 06:39
VLDL Cholesterol, Calc 24 mg/dl (0-30) 04/20/24 06:39
HDL Cholesterol 96 mg/dl 04/20/24 06:39
04/19/24
15:32
Mbc-H-Jzwqcvcitpd Pept 117
DAPT Medication
DAPT Medication: Aspirin 81mg daily and Tricagrelor 90 mg BID
Case Management checking apple: Yes (cost prohibitive)
Plan
NSTEMI w/peak troponin 0.54
s/p Ramus/OM1 angioplasty/DAISY
Residual OM2, RCA disease- plan for staged intervention 04/23
DAPT w/asa, ticagrelor- per CM it is cost prohibitive- will switch to plavix after second procedure
cardiac rehab consulted
Cards followup- 05/09 at 2:20pm w/Marylu Cai NP
--- NOTE | 2024-04-23 10:18 | W.PN.CD ---
Today's Communication / Plan
-
Staged PCI of the RCA today.
Impression / Plan
-
Impression/Plan: 68 y/o male with HTN, HLD and remote CVA admitted with NSTEMI.
#NSTEMI:
-Acute.
-Troponin peaked at 0.5, currently chest pain free.
-ASA allergy: underwent desensitization on 04/20.
-S/P cardiac catheterization and PCI of the RI (Medtronic [place] 2.0 x [address]) with [address] Walsh, 04/22/2024.
-Cath films reviewed. Plan for staged PCI of the RCA today. We may interrogate the OM. LAD is diffusely diseased without options for revascularization and will be managed medically.
-Per case management notes, ticagrelor is prohibitively expensive. We will hold ticagrelor and load with clopidogrel 600 mg daily. Maintain aspirin 81 mg daily.
-Continue atorvastatin and metoprolol.
-Referral to cardiac rehab.
#HTN
-Chronic, stable.
-Continue lisinopril and metoprolol.
#Hyperlipidemia
-Chronic.
-Total cholesterol = 271, LDL = 151, HDL = 96, Triglycerides = 120.
-Rosuvastatin 20 mg daily.
-Goal LDL < 55, Triglycerides < 150.
#CVA
-Remote (10 years ago).
-Was taking clopidogrel but stopped on his own.
#Anemia
-Acute on chronic. Mild anemia noted on admit with hgb 10-11 range.
-He denies bleeding.
-MCV normal.
-Outpatient evaluation.
Subjective/Interval History:
Successful PCI of the RI yesterday.
Cath shows residual RCA disease for staged PCI, diffuse LAD disease and a sub-total occlusion of the OM.
No chest pain.
DATA:
Cardiac catheterization/PCI, 04/22/2024:
CONCLUSIONS
1. Two-vessel coronary artery disease in the setting of NSTEMI with culprit sub-total occlusion of the ramus/OM1, status post PCI with a 2.0x22 mm [place] DAISY with excellent result.
2. Mildly elevated LV filling pressure and no aortic stenosis.
TTE, 04/22/2024:
CONCLUSIONS
Normal left ventricular systolic function.
Left ventricular ejection fraction is 60-65%.
Mild mitral regurgitation.
Trace aortic regurgitation.
No prior study available for comparison.
Physical Exam
Vital Signs/Labs
Vital Signs
Temp Pulse Resp BP Pulse Ox
36.7 C 58 16 131/70 97
04/23/24 08:09 04/23/24 09:00 04/23/24 08:09 04/23/24 08:07 04/23/24 08:09
04/21/24 04/22/24 04/23/24
11:59 11:59 11:59
Actual Weight 82 kg 81.1 kg 79.8 kg
04/23/24 04:21
04/23/24 04:21
PT 14.2 Sec (11.4-14.6) 04/20/24 00:46
INR 1.11 04/20/24 00:46
APTT 24.5 Sec (23.4-35.0) 04/23/24 04:21
Triglycerides 120 mg/dl (10-149) 04/20/24 06:39
LDL Cholesterol, Calc 151 mg/dl 04/20/24 06:39
VLDL Cholesterol, Calc 24 mg/dl (0-30) 04/20/24 06:39
HDL Cholesterol 96 mg/dl 04/20/24 06:39
04/19/24
15:32
Mry-Q-Ctvuchijnwr Pept 117
LAB Results
04/20/24
09:50
Troponin I 0.366 H* D
Physical Exam
Constitutional: No acute distress and Comfortable
EENT: Anicteric and Moist mucous membranes
Cardiovascular: Rhythm & rate is regular, Pedal edema is absent, JVD pressure is normal, S1S2 is normal and Murmur/rub/gallop absent
Respiratory: Respiratory effort normal, Lungs clear to auscul., Wheeze Absent, Crackles Absent and Rhonchi Absent
GI: Soft, Distention absent, Flat, Non tender and Normal bowel sounds
Neuro/Psych: AO x 3
Other: Cath Site (Right femoral access site is C/D/I.)
Data Reviewed
-
Date of Service: April 23, 2024
Medical Decision Making: Reviewed Test Results, Independent Historian Assessment, Test Interpretation and Review of Case with other Provider
EKG: Tracing Personally Visualized and interpreted and Report Reviewed by me
Echo: Report Reviewed by me
X-Ray/CT/US/MRI/NUC/PET: Image Personally Visualized and interpreted and Report Reviewed by me
Medical Tests (PFT, Pathology etc): Image Personally Visualized and interpreted and Report Reviewed by me
Labs: Labs Reviewed by me
Old Records: Reviewed
[2024-04-23 11:00] LABS: ACT-LR - POC 311 Seconds (116-155)
[2024-04-23 11:27] LABS: ACT-LR - POC 231 Seconds (116-155)
[2024-04-23 11:47] LABS: ACT-LR - POC 327 Seconds (116-155)
--- NOTE | 2024-04-23 12:09 | ITS.CL.ANGIO ---
[facility] - Angioplasty
Angioplasty
Procedure Report:
CARDIAC CATHETERIZATION REPORT
Date of Procedure: 04/23/2024
Referring: Jose Eduardo Walsh M.D., PhD
INDICATION: Staged PCI.
PROCEDURE:
1. Left heart catheterization.
2. Coronary angiography.
3. Successful PCI of the distal RCA.
4. Successful PCI of the left circumflex/OM 2.
ACCESS:
6 Uzbek left common femoral artery using a modified Seldinger technique with a micropuncture kit under ultrasound guidance.
CATHETERS:
1. 6 Uzbek JR4 guiding catheter.
2. 6 U[place]bek EBU 4.0 guiding catheter.
HEMODYNAMIC DATA
Weight (kg): 79.4
AO (s/d/x, mmHg): 150/72/101
LV (s/x mmHg): 155/11
LEFT VENTRICULOGRAPHY: Not performed.
CORONARY ANGIOGRAPHY
Dominance: Right.
Left Main: Normal size, trifurcating vessel. There is no coronary artery disease.
LAD: Large size vessel giving rise to a single diagonal prior to wrapping around the apex. There is a nonocclusive, 40% stenosis just after the takeoff of the diagonal (IFR = 0.95) and a 70% stenosis in the smaller branch of the diagonal.
Ramus: Moderately sized vessel with a patent stent in the ostium/proximal margin. There is no evidence of in-stent restenosis or compromise.
Circumflex: Moderately sized vessel that is essentially a single obtuse marginal. There is a 95% subtotal occlusion in the mid vessel with MOIRA II flow.
RCA: Large size, dominant vessel with a large posterolateral arcade. There are 20% lesions in the proximal and mid vessel, a 30% lesion in the proximal margin of the distal vessel immediately after the crux and a 90% lesion in the more distal
RCA, immediately proximal to the origin of the RPDA.
INTERVENTION(S)
1. Successful PCI of the 90% distal RCA lesion (Medtronic [place] 3.0 x 18 DAISY, postdilated with a 3.25 NC balloon) with reduction in stenosis to 0%, maintaining MOIRA-3 flow.
2. Successful PCI of the 95% left circumflex/obtuse marginal subtotal occlusion (overlapping Medtronic [place] 2.25 x 26 DAISY, 2.25 x 12 DAISY, postdilated with a 2.25 NC balloon) with reduction in stenosis to 0%, restoring MOIRA-3 flow.
Narrative:
The decision was made to proceed with percutaneous coronary intervention. The diagnostic catheter was removed over a wire and a 6Fr JR4 guiding catheter was advanced to the aortic root and seated in the right coronary artery. Additional heparin was
given and a Power Turn Flex wire was advanced into the distal right posterolateral branch. The 90% distal RCA lesion was predilated with a 2.0 x 12 semi-compliant balloon to 12 isidro. The semi-compliant balloon was removed and a Medtronic [place] 3.0 x 18 drug-eluting stent was advanced. The stent was deployed at 12 atmospheres. The stent balloon was removed. A 3.25 x 15 noncompliant balloon was advanced into the stent and the stent was postdilated to 16 atmospheres. Angiography was
performed in orthogonal views, confirming good stent expansion and an excellent angiographic result. The coronary wire was withdrawn and the guide was disengaged from the artery.
Given our relatively low contrast and radiation use on the RCA, we decided to turn our attention to the obtuse marginal lesion. The JR4 guiding catheter was removed over a wire and a 6Fr EBU 4.0 guiding catheter was advanced to the aortic root and
seated in the left main coronary artery. Additional heparin was given and a Power Turn Flex wire was advanced into the obtuse marginal, buckling at the 95% subtotal lesion.
A quick cross microcatheter was advanced over the power turn flex wire using a wire pinning technique. Once the microcatheter was in the obtuse marginal, the power turn flex wire was withdrawn and a Fielder XT wire with a CREAM BEATER band was advanced
through the quick cross. The Fielder XT wire was able to traverse the lesion with relative ease, entering the distal obtuse marginal. The wire tip was freely dancing without any evidence of restriction. The quick cross microcatheter was advanced
over the Fielder XT into the distal obtuse marginal without resistance. The Fielder XT wire was withdrawn. Gentle angiography was performed through the quick cross microcatheter, confirming intraluminal position. The power turn flex wire was
readvanced through the quick cross microcatheter which was then removed using a wire pinning technique.
The 95% subtotal left circumflex/OM lesion was predilated with a 1.5 x 10 semi-compliant balloon to 12 isidro. This low-profile balloon was withdrawn and the 2.0 x 12 semicompliant balloon was readvanced. The obtuse marginal/circumflex lesion was
dilated with this balloon to 12 isidro. The semi-compliant balloon was removed and a Medtronic [place] 2.25 x 26 drug-eluting stent was advanced. The stent was deployed at 12 atmospheres. The stent balloon was removed. A 2.25 x 20 noncompliant
balloon was advanced into the stent and the stent was postdilated to 12 atmospheres. Angiography was performed in orthogonal views, confirming good stent expansion and an excellent angiographic result. We did appreciate a proximal circumflex lesion
that was previously observed. Nitroglycerin 100 mcg was given intracoronary to rule out coronary spasm. The lesion was unchanged after vasodilators were given. The decision was made to proceed with an overlapping stent to cover this new lesion.
A Medtronic [place] 2.25 x 12 drug-eluting stent was advanced. Meticulous care was taken while positioning the distal aspect of the stent, overlapping with the circumflex to OM stent while the proximal margin was adequately covering the
lesion. Once we were satisfied with the positioning, the stent was deployed at 12 isidro. The stent balloon was withdrawn and the 2.25 x 20 noncompliant balloon was readvanced. The proximal stent, overlap and proximal margin of the distal stent were
postdilated to 14 isidro. The noncompliant balloon was withdrawn.
Angiography was performed in orthogonal angles, confirming good stent expansion and an excellent angiographic result. The coronary wire was withdrawn and the guide was disengaged from the artery. The catheter was removed over a standard J-wire.
Closure Device: Perclose.
Radiation (mGy): 1058.61
DAP (cm2.Gy): 66.6487
Fluoroscopy time (minutes): 16.1
Sedation time (minutes): 77
CONCLUSIONS
1. Right dominant circulation with a nonocclusive 40% lesion in the mid LAD (IFR = 0.95), a 70% stenosis in a small diagonal branch, a patent stent in the ostial/proximal ramus, 20% lesions in the proximal and mid RCA, a 30% lesion in the proximal
margin of the distal RCA, a 90% distal RCA lesion immediately proximal to the origin of the RPDA status post successful PCI (Medtronic [place] 3.0 x 18 DAISY, postdilated with a 3.25 NC balloon) and a 95% subtotal occlusion of the left
circumflex/OM with MOIRA II flow status post successful PCI (overlapping Medtronic [place] 2.25 x 26 DAISY, 2.25 x 12 DAISY, postdilated with a 2.25 NC balloon) with reduction in all stenoses to 0%, maintaining MOIRA-3 flow in the RCA and restoring
MOIRA-3 flow in the obtuse marginal.
2. Normal filling pressures (LVEDP = 11 mmHg at 79.4 kg).
RECOMMENDATIONS:
1. Expectant management after cardiac catheterization via left common femoral approach.
2. Limited weight bearing for one week.
3. Dual antiplatelet therapy with aspirin and clopidogrel (ticagrelor is prohibitively expensive) for at least 1 year, followed by aspirin indefinitely. Possible lifelong dual antiplatelet therapy given severity and complexity of disease.
4. Aggressive secondary prevention with high-dose, high potency statin.
5. Guideline directed medical therapy as hemodynamics will tolerate.
6. Referral to cardiac rehab.
Copy to: Jose Eduardo Walsh M.D., PhD, Louis Toribio M.D., Ham Gutierrez M.D., Ph.D.
Luis Fernando Simmons DO, FACC, FACP
[2024-04-23] MEDS: NSS 1000 IV (12:55)
--- NOTE | 2024-04-23 14:46 | W.PN.HOSP.TC ---
Today's Communication/Plan
-
[facility] s/p PCI x 2
DAPT, Statin, BB, ACEI
AISS, Metformin on DC
Assessment / Plan
Assessment / Plan
Physical Exam
General: Well Developed, Well Nourished and No Apparent Distress
HEENT: NormoCephalic, Moist mucous membranes and Atraumatic
Respiratory: Clear
Cardiac: S1/S2 and Regular Rhythm; No Murmur or Rub
GI: Soft, Non Tender, Non Distended and Normal Bowel Sounds; No Organomegaly
Musculoskeletal: No Clubbing, No Cyanosis and No Edema
Skin: No Rash
Neuro: AO x 3 and Nonfocal/grossly intact
Psych: Calm
68M CVA HTN HLD p/w sob mid sternum chest pressure for past three weeks non radiating elicited w/ activity relieved with rest. Troponin elevated, possible ACS, patient was started on heparin drip and admitted for further management
#DAUGHERTY/chest pain
#NSTEMI
-trop trended to peak 0.543 since trended down
-EKg with NSR
-cont hep gtt
-ASA, BB, statin, ACEI
-ECHO - EF 60-65%;
-[facility] 04/22: status post PCI with a 2.0x22 mm [place] DAISY; [facility] 04/23: Successful PCI of the distal RCA and left circumflex/OM 2
-Chest X-ray appreciated no acute abn's
-transferred to IVU closer monitoring underwent ASA desensitization protocol as per Cardio, tolerated well
-DAPT
-Statin
-Cardiac Rehab
-AIC 6.7
#mild anemia likely chronic
-monitor H&H
# Gout
-Allopurinol
# Lower back pain
-Celebrex discontinued
- continued prn naproxen and scheduled prednisone
# History of CVA with no residual
-resumed plavix
-ASA as above
#DM
-can start metformin on DC
-a1c - 6.7
-aiss
# DVT prophylaxis
hsq
# CODE STATUS
-Full code
I spent a total of 43 minutes with the patient or on the floor. More than 50% of this time involved counseling and coordination of care.
Anticipated Discharge: Within 24 hours
Subjective/Interval History
-
Date of Service: April 23, 2024
for step chamorro [facility] today
Objective Data
-
Labs:
Laboratory Results
04/23/24
04:21
WBC 12.3 H
Hgb 11.0 L
Hct 32.4 L
Plt Count 279
APTT 24.5
Sodium 136
Potassium 4.8
Chloride 101
Carbon Dioxide 22
BUN 36 H
Creatinine 1.1
Glucose 141 H
Calcium 9.5
Vital Signs:
Vital Signs
Temp Pulse Resp BP Pulse Ox
98.0 F 82 16 101/46 97
04/23/24 08:09 04/23/24 14:00 04/23/24 08:09 04/23/24 14:00 04/23/24 12:45
I&O
04/22/24 04/23/24 04/24/24
06:59 06:59 06:59
Intake Total 180 / 180 740 / 740
Balance 180 / 180 740 / 740
Review of Systems
-
History Source: Patient
All other systems: Not reviewed unless documented
Data Reviewed
-
Diagnostic Radiology: Image personally visualized and interpreted and Report Reviewed by me
Medical Tests (Nuc Med, Echo etc): Image personally visualized and interpreted
Labs: Labs Reviewed by me
[2024-04-23] MEDS: CRESTOR 40 MG PO (17:52)
[2024-04-23] MEDS: HEPARIN 5000 UNITS SC ×2 (17:52→23:47)
[2024-04-23 18:58] LABS: Glucose - Point of Care 122 mg/dl (70-99)
--- NOTE | 2024-04-23 19:26 | PTCARENOTE ---
Pt returned post procedure at 1230. Left groin site WNL. Denies any chest pain or sob. Room air sat 98%. Bedrest and flat maintained. Pt oob with assist post bedrest. Gait steady. No c/o offered.
[2024-04-24] LABS: Glucose - Point of Care 175 mg/dl (70-99)
--- NOTE | 2024-04-24 03:39 | PTCARENOTE ---
Pt recieved at change of shift. VSS, SR on tele with HR 60s-70s. R radial, R fem, and L fem cath site dressings all C/D/I with ecchymosis. No hematoma noted. No complaints of CP. Pt ambulating independently in room without difficulty. Can make
needs known. Call lezama within reach.
[2024-04-24 04:05] VITALS: BP 123/71
[2024-04-24 04:22] VITALS: BMI 27.8
[2024-04-24 05:20] LABS: Blood Urea Nitrogen 49 mg/dl (9-20); Calcium 9.2 mg/dl (8.4-10.2); Carbon Dioxide 21 mmol/L (22-30); Chloride 100 mmol/L (98-107); Estimated Creatinine Clearance 43 ml/min; Glucose 161 mg/dl (70-99); Sodium 136 mmol/L (135-145); eGFR 50.08
[2024-04-24 06:57] LABS: Hematocrit 29.4 % (39.0-52.0); Mean Corpuscular Hgb 29.5 pg (27.0-31.0); Mean Corpuscular Volume 86.7 fL (80.0-94.0); Mean Platelet Volume 10.8 fL (7.4-10.4); Platelet Count 264 10^3/uL (130-400); Red Blood Cell Count 3.39 10^6/uL (4.70-6.10); Red Cell Dist. Width 14.5 % (11.5-14.5)
[2024-04-24 07:50] VITALS: BP 120/51
[2024-04-24 07:52] LABS: Glucose - Point of Care 132 mg/dl (70-99)
--- NOTE | 2024-04-24 09:58 | CM ---
Reviewed chart. Met with Mr. Huerta to review discharge plans. He states he is feeling well and maybe able to go home soon. Prior to admission he resides with his significant other in a one story home with one step to enter. Prior to admission he
was independent with ambulation and adls. He states he sometimes uses a single point cane when needed. He has a single point cane at home. He has a prescription plan and uses [facility]. Medical work-up in progress. The discharge plan is to
return home with his significant other when medically stable.
[2024-04-24] MEDS: PLAVIX 600 MG PO (10:06)
[2024-04-24] MEDS: TOPROL XL 25 MG PO (10:06)
[2024-04-24] MEDS: ZESTRIL 20 MG PO (10:06)
[2024-04-24] MEDS: ZYLOPRIM 300 MG PO (10:07)
[2024-04-24] MEDS: LOW STRENGTH ASPIRIN 81 MG PO (10:07)
[2024-04-24] MEDS: HEPARIN 5000 UNITS SC ×2 (10:07→18:34)
[2024-04-24] MEDS: DELTASONE 10 MG PO ×2 (10:07→20:00)
--- NOTE | 2024-04-24 11:02 | W.CARD.POSTP ---
Post PCI Follow Up
Procedure
Procedure/Date: 04/23- 90% distal RCA-->s/p angioplasty/DAISY x1, 95% LCx/OM2-->s/p angioplasty and overlapping DAISY x2
Subjective: denies cp/palps/dyspnea
groin site without pain
Site
Site: Femoral with Internal Closure Device: Left and No ht/bleeding, distal pulses palpable
Tele / EKG
NSR 60, no vt/arrhythmia
Labs
04/24/24 04:17
04/24/24 04:17
PT 14.2 Sec (11.4-14.6) 04/20/24 00:46
INR 1.11 04/20/24 00:46
APTT 24.5 Sec (23.4-35.0) 04/23/24 04:21
Triglycerides 120 mg/dl (10-149) 04/20/24 06:39
LDL Cholesterol, Calc 151 mg/dl 04/20/24 06:39
VLDL Cholesterol, Calc 24 mg/dl (0-30) 04/20/24 06:39
HDL Cholesterol 96 mg/dl 04/20/24 06:39
04/19/24
15:32
Lzj-J-Syehhjsrvqh Pept 117
DAPT Medication
DAPT Medication: Aspirin 81mg daily and Clopidogrel 75 mg daily
Plan
NSTEMI w/peak troponin 0.54
s/p Ramus/OM1 angioplasty/DAISY (04/22)
Staged RCA angioplasty/DAISY and LCx/OM2 angioplasty/DAISY x2 (04/23)
DAPT w/asa, plavix- 600mg load this morning and 75mg daily thereafter
cardiac rehab consulted
Noted creat 1.5 today post dye load- up from 1.1- will order some IV hydration today and check outpatient labs next week
Cards followup- 05/09 at 2:20pm w/Marylu Cai NP
[2024-04-24 11:32] VITALS: BP 121/53
[2024-04-24] MEDS: NSS 1000 IV (11:37)
[2024-04-24] MEDS: LIDOCAINE 4% PATCH 1 PATCH TOPICAL (13:33)
[2024-04-24] MEDS: LR 1000 IV (13:34)
[2024-04-24 13:50] LABS: Glucose - Point of Care 132 mg/dl (70-99)
--- NOTE | 2024-04-24 14:39 | W.PN.HOSP.TC ---
Today's Communication/Plan
-
monitor cbc to ensure wbc coming down, monitor fever curve, wbc
LR bolus now
monitor bmp closely, hold ACEI; DC NSAIDS
lidocaine patch
Assessment / Plan
Assessment / Plan
Physical Exam
General: Well Developed, Well Nourished and No Apparent Distress
HEENT: NormoCephalic, Moist mucous membranes and Atraumatic
Respiratory: Clear
Cardiac: S1/S2 and Regular Rhythm; No Murmur or Rub
GI: Soft, Non Tender, Non Distended and Normal Bowel Sounds; No Organomegaly
Musculoskeletal: No Clubbing, No Cyanosis and No Edema
Skin: No Rash
Neuro: AO x 3 and Nonfocal/grossly intact
Psych: Calm
68M CVA HTN HLD p/w sob mid sternum chest pressure for past three weeks non radiating elicited w/ activity relieved with rest. Troponin elevated, possible ACS, patient was started on heparin drip and admitted for further management
#DAUGHERTY/chest pain
#NSTEMI
-trop trended to peak 0.543 since trended down
-10/8- 90% distal RCA-->s/p angioplasty/DAISY x1, 95% LCx/OM2-->s/p angioplasty and overlapping DAISY x2
-ASA, BB, statin, ACEI
-ECHO - EF 60-65%;
-Chest X-ray appreciated no acute abn's
-transferred to IVU closer monitoring underwent ASA desensitization protocol as per Cardio, tolerated well
-DAPT
-Statin
-Cardiac Rehab
-AIC 6.7
#MICHELLE
-s/p cath
-LR bolus now
-Hold ACEI
-monitor bmp closely prior to dc
#Back pain
-stop NSAIDS
-lidocaine patch
#mild anemia likely chronic
-monitor H&H
Leukocytosis
# Most likely reactive due to acute stress
� Monitor fever curve, white count
# Gout
-Allopurinol
# Lower back pain
-Celebrex discontinued
- continued prn naproxen and scheduled prednisone
# History of CVA with no residual
-resumed plavix
-ASA as above
#DM
-can start oral regimen outpatient
-a1c - 6.7
-aiss
# DVT prophylaxis
hsq
# CODE STATUS
-Full code
Anticipated Discharge: Within 24 hours
Subjective/Interval History
-
Date of Service: April 24, 2024
Underwent staged PCI; 04/23 -> 90% distal RCA-->s/p angioplasty/DAISY x1 and then 04/24 ->95% LCx/OM2-->s/p angioplasty and overlapping DAISY x2
complains of chronic back pain, otherwise no acute events
Objective Data
-
Labs:
Laboratory Results
04/24/24 04/24/24
04:17 14:00
WBC 14.0 H
Hgb 10.0 L
Hct 29.4 L
Plt Count 264
Sodium 136 Pending
Potassium 5.0 Pending
Chloride 100 Pending
Carbon Dioxide 21 L Pending
BUN 49 H Pending
Creatinine 1.5 H Pending
Glucose 161 H Pending
Calcium 9.2 Pending
Vital Signs:
Vital Signs
Temp Pulse Resp BP Pulse Ox
98.5 F 69 18 121/53 96
04/24/24 11:35 04/24/24 14:00 04/24/24 11:35 04/24/24 11:32 04/24/24 11:35
I&O
04/23/24 04/24/24 04/25/24
06:59 06:59 06:59
Intake Total 740 / 740
Balance 740 / 740
Review of Systems
-
History Source: Patient
All other systems: Not reviewed unless documented
Data Reviewed
-
Diagnostic Radiology: Image personally visualized and interpreted and Report Reviewed by me
Medical Tests (Nuc Med, Echo etc): Image personally visualized and interpreted
Labs: Labs Reviewed by me
[2024-04-24 15:28] VITALS: BP 137/76
--- NOTE | 2024-04-24 15:42 | W.PN.CD ---
Today's Communication / Plan
-
Stable on clopidogrel.
Stable for outpatient follow up.
Cardiac rehab referral.
Medicine monitoring leukocytosis overnight.
Impression / Plan
-
Impression/Plan: 68 y/o male with HTN, HLD and remote CVA admitted with NSTEMI.
#NSTEMI:
-Acute.
-Troponin peaked at 0.5, currently chest pain free.
-ASA allergy: underwent desensitization on 04/20.
-S/P cardiac catheterization and PCI of the RI (Medtronic [place] 2.0 x [address]) [address] Walsh, 04/22/2024.
-S/P staged PCI of the 90% dRCA (Medtronic [place] 3.0 x 18 DAISY post dilated with a 3.25 NC balloon) and 95% subtotaled OM (overlapping Medtronic [place] 2.25 x 26 DAISY, 2.25 x 12 DAISY).
-Per case management notes, ticagrelor is prohibitively expensive.
-Clopidogrel 600 mg this morning. Continue clopidogrel 75 mg daily.
-Continue atorvastatin and metoprolol.
-Referral to cardiac rehab.
#HTN
-Chronic, stable.
-Continue lisinopril and metoprolol.
#Hyperlipidemia
-Chronic.
-Total cholesterol = 271, LDL = 151, HDL = 96, Triglycerides = 120.
-Rosuvastatin 20 mg daily.
-Goal LDL < 55, Triglycerides < 150.
#CVA
-Remote (10 years ago).
-Was taking clopidogrel but stopped on his own.
#Anemia
-Acute on chronic. Mild anemia noted on admit with hgb 10-11 range.
-He denies bleeding.
-MCV normal.
-Outpatient evaluation.
Subjective/Interval History:
Successful staged PCI yesterday.
No acute events.
No subjective complaints.
New leukocytosis. Patient is asymptomatic.
DATA:
Cardiac Catheterization/PCI, 04/23/2024:
CONCLUSIONS
1. Right dominant circulation with a nonocclusive 40% lesion in the mid LAD (IFR = 0.95), a 70% stenosis in a small diagonal branch, a patent stent in the ostial/proximal ramus, 20% lesions in the proximal and mid RCA, a 30% lesion in the proximal
margin of the distal RCA, a 90% distal RCA lesion immediately proximal to the origin of the RPDA status post successful PCI (Medtronic [place] 3.0 x 18 DAISY, postdilated with a 3.25 NC balloon) and a 95% subtotal occlusion of the left
circumflex/OM with MOIRA II flow status post successful PCI (overlapping Medtronic [place] 2.25 x 26 DAISY, 2.25 x 12 DAISY, postdilated with a 2.25 NC balloon) with reduction in all stenoses to 0%, maintaining MOIRA-3 flow in the RCA and restoring
MOIRA-3 flow in the obtuse marginal.
2. Normal filling pressures (LVEDP = 11 mmHg at 79.4 kg).
Cardiac catheterization/PCI, 04/22/2024:
CONCLUSIONS
1. Two-vessel coronary artery disease in the setting of NSTEMI with culprit sub-total occlusion of the ramus/OM1, status post PCI with a 2.0x22 mm [place] DAISY with excellent result.
2. Mildly elevated LV filling pressure and no aortic stenosis.
TTE, 04/22/2024:
CONCLUSIONS
Normal left ventricular systolic function.
Left ventricular ejection fraction is 60-65%.
Mild mitral regurgitation.
Trace aortic regurgitation.
No prior study available for comparison.
Physical Exam
Vital Signs/Labs
Vital Signs
Temp Pulse Resp BP Pulse Ox
36.7 C 69 18 121/53 98
04/24/24 15:38 04/24/24 14:00 04/24/24 15:38 04/24/24 11:32 04/24/24 15:38
04/23/24 04/24/24 04/25/24
11:59 11:59 11:59
Actual Weight 79.8 kg 80.5 kg
04/24/24 04:17
PT 14.2 Sec (11.4-14.6) 04/20/24 00:46
INR 1.11 04/20/24 00:46
APTT 24.5 Sec (23.4-35.0) 04/23/24 04:21
Triglycerides 120 mg/dl (10-149) 04/20/24 06:39
LDL Cholesterol, Calc 151 mg/dl 04/20/24 06:39
VLDL Cholesterol, Calc 24 mg/dl (0-30) 04/20/24 06:39
HDL Cholesterol 96 mg/dl 04/20/24 06:39
04/19/24
15:32
Yif-A-[id number] Pept 117
Physical Exam
Constitutional: No acute distress and Comfortable
EENT: Anicteric and Moist mucous membranes
Cardiovascular: Rhythm & rate is regular, Pedal edema is absent, JVD pressure is normal, S1S2 is normal and Murmur/rub/gallop absent
Respiratory: Respiratory effort normal, Lungs clear to auscul., Wheeze Absent, Crackles Absent and Rhonchi Absent
GI: Soft, Distention absent, Flat, Non tender and Normal bowel sounds
Neuro/Psych: AO x 3
Other: Cath Site (Bilateral femoral access sites are C/D/I.)
Data Reviewed
-
Date of Service: April 24, 2024
Medical Decision Making: Reviewed Test Results, Independent Historian Assessment, Test Interpretation and Review of Case with other Provider
EKG: Tracing Personally Visualized and interpreted and Report Reviewed by me
Echo: Tracing Personally Visualized and interpreted and Report Reviewed by me
X-Ray/CT/US/MRI/NUC/PET: Image Personally Visualized and interpreted and Report Reviewed by me
Medical Tests (PFT, Pathology etc): Image Personally Visualized and interpreted and Report Reviewed by me
Labs: Labs Reviewed by me
Old Records: Reviewed
[2024-04-24 16:43] LABS: Blood Urea Nitrogen 54 mg/dl (9-20); Calcium 9.4 mg/dl (8.4-10.2); Carbon Dioxide 23 mmol/L (22-30); Chloride 96 mmol/L (98-107); Estimated Creatinine Clearance 38 ml/min; Glucose 152 mg/dl (70-99); Sodium 134 mmol/L (135-145)
[2024-04-24 18:29] LABS: Glucose - Point of Care 175 mg/dl (70-99)
[2024-04-24] MEDS: CRESTOR 40 MG PO (18:38)
--- NOTE | 2024-04-24 19:39 | PTCARENOTE ---
Pt with Cr.1.5 today after recent cardiac interventions on 04/22 and 04/23. Pt initially started on N/Saline per Tracy Cooper NP then 1 L LR per . BMP rechecked , Cr now 1.7. Plan to recheck on 04/25. Pt reported low back pain, lidocaine
patch in place. Pt walking in halls. Telemetry shows sinus rhythm.
[2024-04-24 20:04] VITALS: BP 135/65
[2024-04-24 22:39] VITALS: BP 110/72
[2024-04-24 22:45] LABS: Glucose - Point of Care 146 mg/dl (70-99)
--- NOTE | 2024-04-24 23:00 | PTCARENOTE ---
Pt remains in SR on tele with HR 50s-60s. Cath sites X3 c/d/i with ecchymosis noted. Pt with no complaints of pain at this time. Pt refusing insulin coverage with dinner for accucheck of 175, repeat accucheck at 2241, 146. Diabetic education
done with pt. regarding medications and diet. Printed material given to pt. as a resource as well. Pt. verbalizes understanding of plan of care. Can make needs known. Call lezama within reach.
[2024-04-24] MEDS: HEPARIN SC (23:25)
[2024-04-25 04:09] VITALS: BP 126/59
[2024-04-25 04:13] VITALS: BMI 28.3
[2024-04-25 04:40] LABS: Hematocrit 26.8 % (39.0-52.0); Hemoglobin 9.2 g/dL (13.0-18.0); Mean Corp Hgb Conc. 34.3 g/dL (33.0-37.0); Mean Corpuscular Hgb 29.5 pg (27.0-31.0); Mean Corpuscular Volume 85.9 fL (80.0-94.0); Mean Platelet Volume 10.6 fL (7.4-10.4); Platelet Count 247 10^3/uL (130-400); Red Blood Cell Count 3.12 10^6/uL (4.70-6.10); Red Cell Dist. Width 14.6 % (11.5-14.5); White Blood Cell Count 12.6 10^3/uL (4.8-10.8)
[2024-04-25 04:59] LABS: Blood Urea Nitrogen 52 mg/dl (9-20); Carbon Dioxide 21 mmol/L (22-30); Chloride 99 mmol/L (98-107); Estimated Creatinine Clearance 43 ml/min; Glucose 162 mg/dl (70-99); Potassium 5.2 mmol/L (3.5-5.1); Sodium 134 mmol/L (135-145); eGFR 50.08
[2024-04-25 08:04] VITALS: BP 114/64
--- NOTE | 2024-04-25 08:10 | W.PN.CD ---
Today's Communication / Plan
-
Hold lisinopril.
Stable for outpatient follow up, BMP early next week to make sure renal function continues to improve.
Impression / Plan
-
Impression/Plan: 68 y/o male with HTN, HLD and remote CVA admitted with NSTEMI.
#NSTEMI:
-Acute.
-Troponin peaked at 0.5, currently chest pain free.
-ASA allergy: underwent desensitization on 04/20.
-S/P cardiac catheterization and PCI of the RI (Medtronic [place] 2.0 x 22 DAISY) with Dr. Walsh, 04/22/2024.
-S/P staged PCI of the 90% dRCA (Medtronic [place] 3.0 x 18 DAISY post dilated with a 3.25 NC balloon) and 95% subtotaled OM (overlapping Medtronic [place] 2.25 x 26 DAISY, 2.25 x 12 DAISY).
-Per case management notes, ticagrelor is prohibitively expensive.
-Continue atorvastatin, metoprolol and clopidogrel.
-Referral to cardiac rehab.
#MICHELLE
-Acute.
-Creatinine peaked at 1.7.
-Weight is up (1.5 kg) after volume infusion yesterday.
-I suspect BUBBA. This is typically self limited.
-Given down trend in Cr, I am ok with DC today and BMP early next week to make sure renal function is recovering.
#HTN
-Chronic, stable.
-Continue metoprolol.
-Hold lisinopril while creatinine is up.
#Hyperlipidemia
-Chronic.
-Total cholesterol = 271, LDL = 151, HDL = 96, Triglycerides = 120.
-Rosuvastatin 20 mg daily.
-Goal LDL < 55, Triglycerides < 150.
#CVA
-Remote (10 years ago).
-Was taking clopidogrel but stopped on his own.
#Anemia
-Acute on chronic. Mild anemia noted on admit with hgb 10-11 range.
-He denies bleeding.
-MCV normal.
-Outpatient evaluation.
Subjective/Interval History:
Weight is up 1.5 kg from yesterday.
Creatinine up but trending down.
Patient eager to leave.
DATA:
Cardiac Catheterization/PCI, 04/23/2024:
CONCLUSIONS
1. Right dominant circulation with a nonocclusive 40% lesion in the mid LAD (IFR = 0.95), a 70% stenosis in a small diagonal branch, a patent stent in the ostial/proximal ramus, 20% lesions in the proximal and mid RCA, a 30% lesion in the proximal
margin of the distal RCA, a 90% distal RCA lesion immediately proximal to the origin of the RPDA status post successful PCI (Medtronic [place] 3.0 x 18 DAISY, postdilated with a 3.25 NC balloon) and a 95% subtotal occlusion of the left
circumflex/OM with MOIRA II flow status post successful PCI (overlapping Medtronic [place] 2.25 x 26 DAISY, 2.25 x 12 DAISY, postdilated with a 2.25 NC balloon) with reduction in all stenoses to 0%, maintaining MOIRA-3 flow in the RCA and restoring
MOIRA-3 flow in the obtuse marginal.
2. Normal filling pressures (LVEDP = 11 mmHg at 79.4 kg).
Cardiac catheterization/PCI, 04/22/2024:
CONCLUSIONS
1. Two-vessel coronary artery disease in the setting of NSTEMI with culprit sub-total occlusion of the ramus/OM1, status post PCI with a 2.0x22 mm [place] DAISY with excellent result.
2. Mildly elevated LV filling pressure and no aortic stenosis.
TTE, 04/22/2024:
CONCLUSIONS
Normal left ventricular systolic function.
Left ventricular ejection fraction is 60-65%.
Mild mitral regurgitation.
Trace aortic regurgitation.
No prior study available for comparison.
Physical Exam
Vital Signs/Labs
Vital Signs
Temp Pulse Resp BP Pulse Ox
36.7 C 64 18 126/59 96
04/25/24 04:11 04/25/24 04:09 04/25/24 04:11 04/25/24 04:09 04/25/24 04:11
04/23/24 04/24/24 04/25/24
11:59 11:59 11:59
Actual Weight 79.8 kg 80.5 kg 82 kg
04/25/24 04:07
04/25/24 04:07
PT 14.2 Sec (11.4-14.6) 04/20/24 00:46
INR 1.11 04/20/24 00:46
APTT 24.5 Sec (23.4-35.0) 04/23/24 04:21
Triglycerides 120 mg/dl (10-149) 04/20/24 06:39
LDL Cholesterol, Calc 151 mg/dl 04/20/24 06:39
VLDL Cholesterol, Calc 24 mg/dl (0-30) 04/20/24 06:39
HDL Cholesterol 96 mg/dl 04/20/24 06:39
04/19/24
15:32
Xjr-E-Qltqnctvnwj Pept 117
Physical Exam
Constitutional: No acute distress and Comfortable
EENT: Anicteric and Moist mucous membranes
Cardiovascular: Rhythm & rate is regular, Pedal edema is absent, JVD pressure is normal, S1S2 is normal and Murmur/rub/gallop absent
Respiratory: Respiratory effort normal, Lungs clear to auscul., Wheeze Absent, Crackles Absent and Rhonchi Absent
GI: Soft, Distention absent, Flat, Non tender and Normal bowel sounds
Neuro/Psych: AO x 3
Other: Cath Site (Bilateral femoral access sites are C/D/I.)
Data Reviewed
-
Date of Service: April 25, 2024
Medical Decision Making: Reviewed Test Results, Independent Historian Assessment and Test Interpretation
EKG: Tracing Personally Visualized and interpreted and Report Reviewed by me
Echo: Tracing Personally Visualized and interpreted and Report Reviewed by me
X-Ray/CT/US/MRI/NUC/PET: Image Personally Visualized and interpreted and Report Reviewed by me
Medical Tests (PFT, Pathology etc): Image Personally Visualized and interpreted and Report Reviewed by me
Labs: Labs Reviewed by me
[2024-04-25 08:31] LABS: Glucose - Point of Care 144 mg/dl (70-99)
[2024-04-25] MEDS: LIDOCAINE 4% PATCH 1 PATCH TOPICAL (09:46)
[2024-04-25] MEDS: PLAVIX 75 MG PO (09:47)
[2024-04-25] MEDS: DELTASONE 10 MG PO (09:47)
[2024-04-25] MEDS: LOW STRENGTH ASPIRIN 81 MG PO (09:48)
[2024-04-25] MEDS: ZYLOPRIM 300 MG PO (09:48)
[2024-04-25] MEDS: HEPARIN SC (09:48)
[2024-04-25] MEDS: TOPROL XL 25 MG PO (09:48)
[2024-04-25] MEDS: LOKELMA 5 GRAM PO (11:01)
--- NOTE | 2024-04-25 12:28 | W.PN.HOSP.TC ---
Addendum entered and electronically signed by Ej Pringle MD 04/26/24 18:12:
[id number]
Original Note:
Today's Communication/Plan
-
Lokelma
monitor bmp closely with BMP on 04/29, hold ACEI; DC NSAIDS
lidocaine patch
F/u PCP for steroid use? and possibility of weaning off
F/u Cardiology as scheduled, PCP f/u
DAPT, Statin, BB
outpatient anemia w/u
Assessment / Plan
Assessment / Plan
Physical Exam
General: Well Developed, Well Nourished and No Apparent Distress
HEENT: NormoCephalic, Moist mucous membranes and Atraumatic
Respiratory: Clear
Cardiac: S1/S2 and Regular Rhythm; No Murmur or Rub
GI: Soft, Non Tender, Non Distended and Normal Bowel Sounds; No Organomegaly
Musculoskeletal: No Clubbing, No Cyanosis and No Edema
Skin: No Rash
Neuro: AO x 3 and Nonfocal/grossly intact
Psych: Calm
68M CVA HTN HLD p/w sob mid sternum chest pressure for past three weeks non radiating elicited w/ activity relieved with rest. Troponin elevated, possible ACS, patient was started on heparin drip and admitted for further management
#DAUGHERTY/chest pain
#NSTEMI
-trop trended to peak 0.543 since trended down
-04/23- 90% distal RCA-->s/p angioplasty/DAISY x1, 04/24 95% LCx/OM2-->s/p angioplasty and overlapping DAISY x2
-ASA, BB, statin, hold ACEI due to MICHELLE; f/u bmp on 04/29 for f/u
-ECHO - EF 60-65%;
-Chest X-ray appreciated no acute abn's
-transferred to IVU closer monitoring underwent ASA desensitization protocol as per Cardio, tolerated well
-DAPT
-Statin
-Cardiac Rehab
-AIC 6.7
#MICHELLE
#Hyperkalemia
-s/p cath
-s/p ivf
-possible BUBBA
-Scr peaked at 1.7 - now trending down
-OK to leave with education on adequte hydration; Stop NSAIDS including naproxen that he was on prior; Hold ACEI;
-F/u BMP on sunday 04/29 for improvement - already trending down
-Lokelma today - f/u outpatient BMP Monday
#Back pain
-stop NSAIDS
-lidocaine patch - good improvement
-f/u pcp outpatient
#mild anemia likely chronic
-monitor H&H
Leukocytosis
-chronic as per patient and follows with hematology
� Follow PCP/hematology outpatient
� No acute source of infection
# Gout
-Allopurinol
# Lower back pain
-Celebrex discontinued
- DC naproxen
-scheduled prednisone? F/u with PCP on continuation
# History of CVA with no residual
-resumed plavix
-ASA as above
#DM
-can start oral regimen outpatient - hold on metformin due to MICHELLE
-a1c - 6.7
-aiss
# DVT prophylaxis
hsq
# CODE STATUS
-Full code
Anticipated Discharge: Within 24 hours
Subjective/Interval History
-
Date of Service: April 25, 2024
no acute events, back pain improved with lidocaine patch. Scr trending down
Objective Data
-
Labs:
Laboratory Results
04/25/24
04:07
WBC 12.6 H
Hgb 9.2 L
Hct 26.8 L
Plt Count 247
Sodium 134 L
Potassium 5.2 H
Chloride 99
Carbon Dioxide 21 L
BUN 52 H
Creatinine 1.5 H
Glucose 162 H
Calcium 9.0
Vital Signs:
Vital Signs
Temp Pulse Resp BP Pulse Ox
98.2 F 64 18 114/64 98
04/25/24 08:11 04/25/24 10:00 04/25/24 08:11 04/25/24 08:04 04/25/24 09:52
I&O
04/24/24 04/25/24 04/26/24
06:59 06:59 06:59
Intake Total 1000 / 1000
Balance 1000 / 1000
Review of Systems
-
History Source: Patient
All other systems: Not reviewed unless documented
Data Reviewed
-
Diagnostic Radiology: Image personally visualized and interpreted and Report Reviewed by me
Medical Tests (Nuc Med, Echo etc): Image personally visualized and interpreted
Labs: Labs Reviewed by me
[2024-04-25 12:30] VITALS: BP 156/68
[2024-04-25 12:31] VITALS: BP 147/68
--- NOTE | 2024-04-25 12:40 | W.DS.TRANS ---
DC Summary - [facility]
-
Discharge Instructions:
Discharge Diagnosis/Procedures NSTEMI
Angioplasty and stent x1 to Ramus artery (04/22)
Angioplasty and stent x1 to Right Coronary
artery and x2 to Obtuse Marginal artery (04/23)
Diet Low Fat,Low Cholesterol
Activity As tolerated
Driving Restrictions No driving for 24 hours
Blood Work BMP on Monday, 04/29- results to Dr. Gutierrez/
Cardiology; CBC with PCP within 3-5 days. If WBC
chronically elevated - f/u with hematology as
usual
Other Services Cardiac Rehab
Instructions:
Stand-Alone Forms: DC Instructions- Cath/EP Lab
Changes to Home Medications: Yes
Discharge Medications:
DC Medications w/original date entered in [facility]
allopurinol 300 mg tablet 300 mg PO DAILY Gout 04/19/24
lisinopril 20 mg tablet 20 mg PO DAILY Blood Pressure 04/19/24
prednisone 10 mg tablet 10 mg PO BID Anti-Inflammatory 04/19/24
aspirin 81 mg chewable tablet 81 mg PO DAILY #90 tabs 04/24/24
clopidogrel 75 mg tablet 75 mg PO DAILY #90 tabs 04/24/24
lidocaine 4 % topical patch 1 patch topical DAILY PRN back pain #30 ea 04/24/24
metoprolol succinate 25 mg tablet,extended release 24 hr 25 mg PO DAILY #90 tabs 04/24/24
nitroglycerin 0.4 mg sublingual tablet 0.4 mg sublingual [id number] PRN chest pain #25 tabs 04/24/24
rosuvastatin 40 mg tablet 40 mg PO QPM #90 tabs 04/24/24
Home Medication Changes
aspirin 81 mg chewable tablet 81 mg PO DAILY #90 tabs 04/24/24
clopidogrel 75 mg tablet 75 mg PO DAILY #90 tabs 04/24/24
lidocaine 4 % topical patch 1 patch topical DAILY PRN back pain #30 ea 04/24/24
metoprolol succinate 25 mg tablet,extended release 24 hr 25 mg PO DAILY #90 tabs 04/24/24
nitroglycerin 0.4 mg sublingual tablet 0.4 mg sublingual [id number] PRN chest pain #25 tabs 04/24/24
rosuvastatin 40 mg tablet 40 mg PO QPM #90 tabs 04/24/24
Pending Results: No
--- NOTE | 2024-04-25 13:37 | PTCARENOTE ---
Pt seen by Sonia and Yary. Telemetry and IV device removed. Discharge instructions reviewed with pt regarding medications and their possible side effects and adherence to aspirin, wound care, activity guidelines, lab tests, reporting cares
and concerns and follow up appt's. Very good understanding taught back to RN. Pt escorted out via wheelchair to drive himself home.
== END 2024-04-25 13:40 | disposition home or self-care (01) | DRG 321 ==
LOC: IVU 19:01
PROVIDERS: Internal Medicine; Internal Medicine Cardiovascular Disease; Registered Nurse; Student in an Organized Health Care Education/Training Program; ADMITTING PHYSICIAN Hospitalist; ATTENDING PHYSICIAN Internal Medicine; CONSULT PHYSICIAN Internal Medicine; EMERGENCY PHYSICIAN Emergency Medicine; FAMILY PHYSICIAN Family Medicine
PROC: B2111ZZ Fluoroscopy of Multiple Coronary Arteries using Low Osmolar Contrast (ICD-10-PCS; 2024-04-22)
PROC: 4A033BC Measurement of Arterial Pressure, Coronary, Percutaneous Approach (ICD-10-PCS; 2024-04-22)
PROC: 027034Z Dilation of Coronary Artery, One Artery with Drug-eluting Intraluminal Device, Percutaneous Approach (ICD-10-PCS; 2024-04-22)
PROC: 4A023N7 Measurement of Cardiac Sampling and Pressure, Left Heart, Percutaneous Approach (ICD-10-PCS; 2024-04-22)
PROC: 027136Z Dilation of Coronary Artery, Two Arteries with Three Drug-eluting Intraluminal Devices, Percutaneous Approach (ICD-10-PCS; 2024-04-23)
DX: I21.4 Non-ST elevation (NSTEMI) myocardial infarction (principal); N17.9 Acute kidney failure, unspecified; E78.00 Pure hypercholesterolemia, unspecified; M19.90 Unspecified osteoarthritis, unspecified site; I11.9 Hypertensive heart disease without heart failure; D64.9 Anemia, unspecified; M10.9 Gout, unspecified; E11.9 Type 2 diabetes mellitus without complications; G89.29 Other chronic pain; M54.9 Dorsalgia, unspecified; E87.5 Hyperkalemia; D72.828 Other elevated white blood cell count; M54.50 Low back pain, unspecified; I25.10 Atherosclerotic heart disease of native coronary artery without angina pectoris; Z79.02 Long term (current) use of antithrombotics/antiplatelets; Z87.891 Personal history of nicotine dependence; Z88.6 Allergy status to analgesic agent; Z79.1 Long term (current) use of non-steroidal anti-inflammatories (NSAID); Z79.52 Long term (current) use of systemic steroids; Z86.73 Personal history of transient ischemic attack (TIA), and cerebral infarction without residual deficits
CPT/HCPCS: 71046; 80048; 80053; 80061; 82962; 83036; 83880; 84484; 85025; 85027; 85347; 85610; 85730; 93005; 93306; 93458; 93799; 96365; 99285; C1725; C1760; C1769; C1874; C1887; C1894; C9600; Q9967

== ENCOUNTER 2024-08-09 11:52 | Emergency (ER) | payer OTHER, SELFPAY ==
[2024-08-09 12:01] VITALS: BP 131/68
[2024-08-09 12:36] LABS: % Basophils 0.4 % (0-2); % Eosinophils 0.6 % (0-6); % Immature Granulocytes 1.5 % (0-0.5); % Lymphocytes 17.2 % (20.5-51.1); % Neutrophils 74.3 % (42.2-75.2); Absolute Eosinophils 0.1 10^3/uL (0-0.7); Absolute Immature Granulocytes 0.2 10^3/uL (0-0.05); Absolute Lymphocytes 1.7 10^3/uL (1.2-3.4); Absolute Monocytes 0.6 10^3/uL (0.1-0.6); Absolute Neutrophils 7.3 10^3/uL (1.4-6.5); Hematocrit 32.5 % (39.0-52.0); Hemoglobin 10.1 g/dL (13.0-18.0); Mean Corp Hgb Conc. 31.1 g/dL (33.0-37.0); Mean Corpuscular Hgb 26.9 pg (27.0-31.0); Mean Corpuscular Volume 86.7 fL (80.0-94.0); Mean Platelet Volume 10.5 fL (7.4-10.4); Nucleated Red Blood Cells % 0 % (-); Platelet Count 243 10^3/uL (130-400); Red Blood Cell Count 3.75 10^6/uL (4.70-6.10); Red Cell Dist. Width 15.4 % (11.5-14.5); White Blood Cell Count 9.8 10^3/uL (4.8-10.8)
[2024-08-09 12:41] LABS: COVID-19 Antigen Negative (Negative)
[2024-08-09 12:48] LABS: ALT (SGPT) 23 U/L (0-50); AST (SGOT) 19 U/L (17-59); Albumin 4.3 g/dl (3.5-5.0); Alkaline Phosphatase 97 U/L (38-126); Blood Urea Nitrogen 28 mg/dl (9-20); Calcium 9.3 mg/dl (8.4-10.2); Carbon Dioxide 21 mmol/L (22-30); Chloride 100 mmol/L (98-107); Glucose 105 mg/dl (70-99); Potassium 4.2 mmol/L (3.5-5.1); Sodium 136 mmol/L (135-145); Total Bilirubin 0.7 mg/dl (0.2-1.3); Total Protein 7.3 g/dl (6.3-8.2); eGFR > 60.00
--- NOTE | 2024-08-09 13:30 | ED.GENMED ---
History of Present Illness
General
Chief Complaint: Headache
Source: patient
Exam Limitations: none
Time Seen by Provider: 08/09/24 13:04
Nursing documentation reviewed up to this point in time: agreed with
History of Present Illness
History of Present Illness:
68 yo male w h/o CVA, HTN, HLD, Anemia, MA, cardiac stents, present for 4 days of intermittent generalized headaches. He states he can no longer concentrate even to drive due to the headaches. Has 'some' blurry vision both eyes, no diplopia. Denies
trouble ambulating steadily, denies weakness in arms or legs. Denies n/v/d/c. Denies CP, SOB. No relief with Aleve, no other aggravating or relieving factors 'it just comes and goes.' States headaches come 3-4 times a day lasting 15-20 min then
dissipate.
Past History
Past History
ED Past Medical History: CVA, HTN, Hypercholesterolemia, MA and Other (Osteoarthritis, Anemia)
ED Past Surgical History: Cardiac (stents)
Social History
Alcohol: None
Review of Systems
Review of Systems
Allergies reviewed?: Yes
All Other Systems: ROS reviewed and negative except as documented in HPI and ROS
Constitutional: Denies fever or fatigue
Respiratory: Reports trouble breathing (only when he stands and his upper abdomen 'gets real hard.')
Cardiac: Denies chest pain
ABD/GI: Denies nausea, vomiting, diarrhea, constipated, bloody stools, black stools or anorexia
: Denies dysuria, frequency or difficulty voiding
Musculoskeletal: Denies edema
Skin: Reports no symptoms
Neurological: Reports headache; Denies dizzy, weakness or numbness
Phy Exam
Physical Exam
Physical Exam:
GENERAL: No acute distress. A&Ox3.
CONSTITUTIONAL: Afebrile.
EYES: clear, conjunctivae normal, PERRL
ENMT: moist mucus membranes, Pharynx nl
RESPIRATORY: Regular respirations, nonlabored, lungs clear.
CARDIOVASCULAR: Regular rate and rhythm, no murmurs, no rubs.
GI: Soft, nontender, normal BS. When pt stands upper abdomen rigid, soft when lays back down, non tender.
MUSCULOSKELETAL: Moves with ease. Well perfused. No edema
SKIN: Warm, dry, pink
PSYCH: Normal mood and affect. Well kept, interactive and appropriate
NEUROLOGIC: Awake, alert and oriented. Speech clear. Cranial nerves II through XII intact. Strength equal throughout. [id number] intact. No focal neurological deficits
Course
Orders/Labs/Results
Orders:
Orders
08/09/24 12:10
COVID-19 Antigen Urgent
Source: Nasal Swab
Complete Blood Count/With Diff Urgent
Comprehensive Metabolic Panel Urgent
Lipase Urgent
Comment: ADD ON
Influenza A+B Rapid Molecular Urgent
ANA M Source: Nasal Swab
Specimen Description:
08/09/24 13:24
Add On- LAB Urgent
Comments:: Lipase
Tests Added?: Lipase
08/09/24 13:26
CT Abd/Pel (IV only)-DH only Urgent
Comment:
Reason For Exam: Upper abd 'hard' and 'can't breathe when he stands
CT Head W/o Iv Contrast Urgent
Comment:
Reason For Exam: general H/A, can't concentrate
08/09/24 13:31
0.9% Sodium Chloride 1000 ml [Nss] 1,000 ml IV BOLUS
08/09/24 15:17
Ketorolac [Toradol] 15 mg IV NOW STA
Abnormal Lab Results
08/09/24
12:10
RBC 3.75 L 10^6/uL
(4.70-6.10)
Hgb 10.1 L g/dL
(13.0-18.0)
Hct 32.5 L %
(39.0-52.0)
MCH 26.9 L pg
(27.0-31.0)
MCHC 31.1 L g/dL
(33.0-37.0)
RDW 15.4 H %
(11.5-14.5)
MPV 10.5 H fL
(7.4-10.4)
Abs Immat Gran (auto) 0.2 H 10^3/uL
(0-0.05)
Absolute Neuts (auto) 7.3 H 10^3/uL
(1.4-6.5)
Immature Gran % 1.5 H %
(0-0.5)
Lymphocytes % 17.2 L %
(20.5-51.1)
Carbon Dioxide 21 L mmol/L
(22-30)
BUN 28 H mg/dl
(9-20)
Glucose 105 H mg/dl
(70-99)
08/09/24 12:10
08/09/24 12:10
Vital Signs
Initial and Last Documented VS:
Initial Vital Signs
Temp Pulse Resp BP Pulse Ox
99.2 F 95 20 131/68 99
08/09/24 12:01 08/09/24 12:01 08/09/24 12:01 08/09/24 12:01 08/09/24 12:01
Last Documented Vital Signs
Temp Pulse Resp BP Pulse Ox
99.2 F 80 19 129/50 98
08/09/24 12:01 08/09/24 16:09 08/09/24 16:09 08/09/24 16:09 08/09/24 16:09
MDM/Problems Addressed
Differential Diagnosis Includes:
tension headache, CVA, brain bleed
hernia, abdominal mass
MDM/Problems Addressed:
68 yo male w h/o CVA, HTN, HLD, Anemia, MA, cardiac stents, present for 4 days of intermittent generalized headaches. He states he can no longer concentrate even to drive due to the headaches. Has 'some' blurry vision both eyes, no diplopia. Denies
trouble ambulating steadily, denies weakness in arms or legs. Denies n/v/d/c. Denies CP, SOB. No relief with Aleve, no other aggravating or relieving factors 'it just comes and goes.' States headaches come 3-4 times a day lasting 15-20 min then
dissipate.
Afebrile, NAD, headache now, normal neuro exam
3:20 p.m.
Covid and Flu neg
CBC with no clinically significant abnormality]
CMP: BUN 28 IV fluids infusing for mild dehydrations, no other significant abnormality
Lipase normal
Pt resting quietly with eyes closed
Pt informed of head and Abd CT results: No acute findings. Given copy of reports
Toradol ordered for headache.
4:30 PM:
After IV fluids and IV Toradol, patient states his headache is much better, now 2/10. He is out of bed and ambulating well with steady gait.
He has an appointment with his PCP on Monday (3 days)
He is stable for discharge
*Critical Care Note
Total Time (30-74mins, 75-104mins- exclusive of procedures): Not Applicable
ED Attending Note
-
Portions of this chart may have been created with voice recognition software.� Occasional wrong word or��sound alike� substitutions may have occurred due to the inherent limitations of voice recognition software.
Discharge Plan
Departure
Patient Disposition: Home (Routine Discharge)
Date of Disposition: 08/09/24
Time of Disposition: 16:38
Patient with high blood pressure during this ER visit?: No
Condition: Good
Discharge Problem:
Headache, Abdominal pain
Instructions: Headache, Adult (DC), Abdominal pain in adults - Discharge instructions
Prescriptions:
No Action
lisinopril 20 mg Tablet
20 mg PO DAILY
allopurinol 300 mg Tablet
300 mg PO DAILY
prednisone 10 mg Tablet
10 mg PO BID
rosuvastatin 40 mg Tablet
40 mg PO QPM Qty: 90 3RF
aspirin 81 mg Tablet,Chewable
81 mg PO DAILY Qty: 90 3RF
clopidogrel 75 mg Tablet
75 mg PO DAILY Qty: 90 3RF
metoprolol succinate 25 mg Tablet Extended Release 24 Hr
25 mg PO DAILY Qty: 90 3RF
nitroglycerin 0.4 mg tablet, sublingual
0.4 mg sublingual [id number] PRN (Reason: chest pain) Qty: 25 2RF
lidocaine 4 % Adhesive Patch,Medicated
1 patch topical DAILY PRN (Reason: back pain) Qty: 30 0RF
Referrals:
Louis Toribio MD [Non-Admitting Privileges] - Keep scheduled appt
Gregory Bernal DO [Family Provider] -
Activity Restrictions/Additional Instructions:
As we discussed, your head CAT scan and your abdomen CAT scan showed nothing worrisome.
Tylenol, ibuprofen or Excedrin as needed for headache.
Keep your appointment Monday with your family doctor.
Interventions
Interventions:
*Risk Screen - Suicide Last Done: 08/09/24 14:00
*General Assessment Last Done: 08/09/24 12:01
*Neglect/Abuse Screening Last Done: 08/09/24 14:00
ED- Fall Risk Assessment Last Done: 08/09/24 14:00
*Nursing Disposition Last Done: 08/09/24 17:12
ED- Neurological Assessment Last Done: 08/09/24 14:00
Discharge Date and Time
Discharge Date/Time: 08/09/24 17:13
Print Language: GREEK
[2024-08-09] MEDS: NSS 1000 IV (13:40)
[2024-08-09 13:41] VITALS: BMI 28.9
[2024-08-09 14:44] LABS: Lipase 252 U/L (23-300)
[2024-08-09] MEDS: TORADOL 15 MG IV (15:26)
[2024-08-09 16:09] VITALS: BP 129/50
== END 2024-08-09 17:13 | disposition home or self-care (01) ==
LOC: EMR 11:52
PROVIDERS: Emergency Medicine; EMERGENCY PHYSICIAN Emergency Medicine; FAMILY PHYSICIAN Family Medicine
DX: R51.9 Headache, unspecified (principal); R10.9 Unspecified abdominal pain; I10 Essential (primary) hypertension; E78.00 Pure hypercholesterolemia, unspecified; Z86.73 Personal history of transient ischemic attack (TIA), and cerebral infarction without residual deficits; Z11.52 Encounter for screening for COVID-19
CPT/HCPCS: 99285; 96374; 96361 ×3; 70450; 74177; 80053; 83690; 85025; 87502; 87811; Q9967

== ENCOUNTER → 2024-11-07 09:20 | Outpatient (REF) | payer OTHER, SELFPAY | LOC: RAD 09:20 | PROVIDERS: ATTENDING PHYSICIAN Specialist | DX: N32.1 Vesicointestinal fistula (principal); N39.0 Urinary tract infection, site not specified | CPT/HCPCS: 74176 ==

== ENCOUNTER → 2024-11-19 07:48 | Outpatient (REF) | payer OTHER, SELFPAY | LOC: HWRCS 07:48 | PROVIDERS: ATTENDING PHYSICIAN Internal Medicine; FAMILY PHYSICIAN Family Medicine | DX: R06.09 Other forms of dyspnea (principal); I25.10 Atherosclerotic heart disease of native coronary artery without angina pectoris; I21.4 Non-ST elevation (NSTEMI) myocardial infarction; I10 Essential (primary) hypertension | CPT/HCPCS: 78452; 93017; A9500; J2785 ==

== ENCOUNTER 2024-11-27 14:06 | Emergency (ER) | payer OTHER, SELFPAY ==
[2024-11-27 14:10] VITALS: BP 139/80
[2024-11-27 14:47] VITALS: BP 133/100
[2024-11-27 14:55] VITALS: BMI 26.4
[2024-11-27 15:00] VITALS: BP 127/59
[2024-11-27 15:17] LABS: % Basophils 0.2 % (0-2); % Eosinophils 1.8 % (0-6); % Immature Granulocytes 0.7 % (0-0.5); % Lymphocytes 19.4 % (20.5-51.1); % Monocytes 5.3 % (1.7-9.3); % Neutrophils 72.6 % (42.2-75.2); Absolute Eosinophils 0.2 10^3/uL (0-0.7); Absolute Immature Granulocytes 0.1 10^3/uL (0-0.05); Absolute Lymphocytes 1.6 10^3/uL (1.2-3.4); Absolute Monocytes 0.4 10^3/uL (0.1-0.6); Absolute Neutrophils 5.9 10^3/uL (1.4-6.5); Hematocrit 30.1 % (39.0-52.0); Hemoglobin 9.1 g/dL (13.0-18.0); Mean Corp Hgb Conc. 30.2 g/dL (33.0-37.0); Mean Corpuscular Hgb 25.5 pg (27.0-31.0); Mean Corpuscular Volume 84.3 fL (80.0-94.0); Mean Platelet Volume 10.1 fL (7.4-10.4); Nucleated Red Blood Cells % 0 % (-); Platelet Count 229 10^3/uL (130-400); Red Blood Cell Count 3.57 10^6/uL (4.70-6.10); Red Cell Dist. Width 17.1 % (11.5-14.5); White Blood Cell Count 8.1 10^3/uL (4.8-10.8)
[2024-11-27 15:28] LABS: ALT (SGPT) 13 U/L (0-50); AST (SGOT) 14 U/L (17-59); Albumin 3.6 g/dl (3.5-5.0); Alkaline Phosphatase 66 U/L (38-126); Blood Urea Nitrogen 24 mg/dl (9-20); Calcium 8.6 mg/dl (8.4-10.2); Carbon Dioxide 25 mmol/L (22-30); Chloride 111 mmol/L (98-107); Estimated Creatinine Clearance 51 ml/min; Glucose 139 mg/dl (70-99); Potassium 3.5 mmol/L (3.5-5.1); Sodium 141 mmol/L (135-145); Total Bilirubin 0.3 mg/dl (0.2-1.3); Total Protein 6.8 g/dl (6.3-8.2)
[2024-11-27 15:40] LABS: NT-proBNP 98.4 pg/ml; Troponin I < 0.012 ng/ml
[2024-11-27 16:00] VITALS: BP 136/50
--- NOTE | 2024-11-27 16:08 | ED.GENMED ---
History of Present Illness
General
Chief Complaint: Breathing Problem
Source: patient
Exam Limitations: none
Time Seen by Provider: 11/27/24 15:07
Nursing documentation reviewed up to this point in time: agreed with
History of Present Illness
History of Present Illness:
69-year-old male with a past medical history of hypertension, hyperlipidemia, CVA, multiple myeloma who presents to the emergency department for evaluation of shortness of breath. Patient says this has been an ongoing issue for months, felt a bit
worse today which prompted him to come to the ER for evaluation. He reports shortness of breath and fatigue when he moves around; his symptoms are minimal at rest. He denies any associated chest pain. He says he had some mild lightheadedness
today. Denies any syncope. He denies any cough, fevers, chills. He has some chronic swelling around the ankles but no acute change. He denies any nausea, vomiting, diarrhea. He does note that he has chronic anemia and is scheduled for outpatient
iron infusions but has not yet been approved by insurance. He wonders if his symptoms could be due to anemia; he follows with Dr. Zazueta for this issue as well as his multiple myeloma. He does note that he has had occasional blood in his stools as
well as hematuria over the past few months and has seen both Dr. Pritchett and Dr. Lee for this issue; no bleeding noted recently.
Past History
Past History
ED Past Medical History: CVA, HTN, Hypercholesterolemia, PR and Other (Osteoarthritis, Anemia)
ED Past Surgical History: Cardiac (stents)
Social History
Alcohol: None
Review of Systems
Review of Systems
All Other Systems: ROS reviewed and negative except as documented in HPI and ROS
Constitutional: Reports fatigue; Denies fever or chills
Respiratory: Reports trouble breathing; Denies cough
Cardiac: Denies chest pain, palpitations or syncope
ABD/GI: Reports bloody stools (Occasional); Denies abdominal pain, nausea, vomiting or diarrhea
: Reports bleeding (Occasional hematuria); Denies dysuria or flank pain
Musculoskeletal: Denies neck pain or back pain
Neurological: Reports dizzy; Denies headache
Phy Exam
Physical Exam
Physical Exam:
General: Awake, alert, oriented x3; no acute distress
Head: Normocephalic, atraumatic
Eyes: Conjunctiva normal, EOMI
Throat: Airway intact, handling secretions
Neck: Trachea midline, supple without no JVD
Lungs: Clear to auscultation bilaterally, no wheezing, rales, rhonchi
Heart: Regular rate and rhythm, no murmurs, gallops, or rubs
Abd: Soft, non distended, nontender
Rectal: Brown stool heme-negative
Neuro: No gross deficits
Skin: no rash
Extremities: Trace edema around the ankles, no calf tenderness, good pulses in all extremities
Scores
Heart Failure Risk
Heart Failure Risk Score: Not Applicable
Heart Score for Chest Pain Patients
STEMI patient?: Not applicable
PE Wells Score
Symptoms of DVT: No
No alternative diagnosis better explains the illness: No
Tachycardia with pulse > 100: Yes
Immobilization (>=3 days) or surgery within previous 4 weeks: No
Prior history of DVT or pulmonary embolism: No
Presence of hemoptysis: No
Presence of malignancy: Yes
Pulmonary Embolism Risk Score: 2.5
Probability of PE: Pt is moderate risk
Withdrawal Assessment of Alcohol
Withdrawal Assessment Completed?: Not applicable
Course
Orders/Labs/Results
Orders:
Orders
11/27/24 14:14
EKG [Electrocardiogram (*1)] Urgent
Reason for Study: Shortness of Breath
EKG- Treatment ONCE
11/27/24 14:54
CR Chest - 2 Views Urgent
Comment:
Reason For Exam: respiratory distress
11/27/24 15:04
Complete Blood Count/With Diff Urgent
Comprehensive Metabolic Panel Urgent
NT-proBNP Urgent
Troponin I Urgent
11/27/24 16:09
CT Chest PE Study Urgent
Comment:
Reason For Exam: sob
Abnormal Lab Results
11/27/24
15:04
RBC 3.57 L 10^6/uL
(4.70-6.10)
Hgb 9.1 L g/dL
(13.0-18.0)
Hct 30.1 L %
(39.0-52.0)
MCH 25.5 L pg
(27.0-31.0)
MCHC 30.2 L g/dL
(33.0-37.0)
RDW 17.1 H %
(11.5-14.5)
Abs Immat Gran (auto) 0.1 H 10^3/uL
(0-0.05)
Immature Gran % 0.7 H %
(0-0.5)
Lymphocytes % 19.4 L %
(20.5-51.1)
Chloride 111 H mmol/L
(98-107)
BUN 24 H mg/dl
(9-20)
Glucose 139 H mg/dl
(70-99)
AST 14 L U/L
(17-59)
11/27/24 15:04
11/27/24 15:04
Vital Signs
Initial and Last Documented VS:
Initial Vital Signs
Temp Pulse Resp BP Pulse Ox
36.9 C 115 18 139/80 99
11/27/24 14:10 11/27/24 14:10 11/27/24 14:10 11/27/24 14:10 11/27/24 14:10
Last Documented Vital Signs
Temp Pulse Resp BP Pulse Ox
36.9 C 86 18 136/50 100
11/27/24 16:00 11/27/24 16:00 11/27/24 16:00 11/27/24 16:00 11/27/24 16:00
MDM/Problems Addressed
Differential Diagnosis Includes:
Pneumonia, pneumothorax, PE, anemia, CHF, angina/ACS
MDM/Problems Addressed:
69-year-old male presents for evaluation of shortness of breath worsening over the past few months. He does have known anemia but follows with hematology for this. He is tachycardic in triage which normalized by my assessment. Rest of vitals
normal. Physical exam as above. Hemoccult is negative today although he reports occasional GI bleeding. Will plan to place an IV check labs including a CBC and CMP, troponin, proBNP. Check a chest x-ray. If initial evaluation nondiagnostic
would have low threshold for CT chest to rule out PE.
Labs reviewed: CBC shows anemia with a hemoglobin of 9.1 which is stable from prior values. CMP no clinically significant abnormalities. Troponin undetectable, proBNP not elevated (less than 100). Symptoms do not sound anginal�he has no chest
pain and he just had cardiac cath a little over 6 months ago for PCI. Chest x-ray shows no acute disease. Will check CT chest to rule out PE given his tachycardia and cancer history.
CT chest shows no PE or any other acute pathology. Clinical reassessment patient has normal vitals including normal blood pressure and heart rate in 80s. Pulse ox 100%, respiratory rate 18. My clinical suspicion is that his chronic dyspnea is
related to this anemia. He is already well-established with hematology and multiple other specialists in regards to this. He has not had an acute drop in his hemoglobin and has no active hemorrhage today. I think he is stable for discharge and
can continue outpatient follow-up for treatment of this issue. He feels comfortable with this plan. We spoke about return precautions and all questions were answered.
*Radiology
Radiology exam reviewed: preliminary read by ED provider and radiology read reviewed
*Pulse Oximetry
Patient hypoxic: no
*EKG
Interpreted by ED Provider?: Yes
Heart Rate: 89
Rate: normal
Rhythm: sinus and PAC's
[employer]: left axis deviation
Interval: normal interval
QRS Pattern: left vent hypertrophy
Ischemia: non-specific ST changes
*Critical Care Note
Total Time (30-74mins, 75-104mins- exclusive of procedures): Not Applicable
Data Reviewed
Review of Other/Old Records Reveals: Labs and Records
Source: patient and records
ED Attending Note
-
Portions of this chart may have been created with voice recognition software.� Occasional wrong word or��sound alike� substitutions may have occurred due to the inherent limitations of voice recognition software.
Discharge Plan
Departure
Patient Disposition: Home (Routine Discharge)
Date of Disposition: 11/27/24
Time of Disposition: 18:18
Patient with high blood pressure during this ER visit?: No
Discharge Problem:
Anemia, Dyspnea
Instructions: Anemia overview
Prescriptions:
No Action
lisinopril 20 mg Tablet
20 mg PO DAILY
allopurinol 300 mg Tablet
300 mg PO DAILY
prednisone 10 mg Tablet
10 mg PO BID
rosuvastatin 40 mg Tablet
40 mg PO QPM Qty: 90 3RF
aspirin 81 mg Tablet,Chewable
81 mg PO DAILY Qty: 90 3RF
clopidogrel 75 mg Tablet
75 mg PO DAILY Qty: 90 3RF
metoprolol succinate 25 mg Tablet Extended Release 24 Hr
25 mg PO DAILY Qty: 90 3RF
nitroglycerin 0.4 mg tablet, sublingual
0.4 mg sublingual [id number] PRN (Reason: chest pain) Qty: 25 2RF
lidocaine 4 % Adhesive Patch,Medicated
1 patch topical DAILY PRN (Reason: back pain) Qty: 30 0RF
Referrals:
Peter Zazueta, [Active] - Keep scheduled appt
Louis Toribio MD [Family Provider] - Call in 1-3 days for appt
Activity Restrictions/Additional Instructions:
Thank you for visiting the Emergency Department at [facility].
1. Please schedule a follow up appointment as directed. Call first thing tomorrow morning to make an appointment.
2. If indicated, please take your medications as instructed and indicated on discharge paperwork.
3. If any of your symptoms do not improve, or persist, or become more severe within 6-12 hours, please return to the emergency department for further care.
4. Please return to the emergency department if you develop a headache, neck pain/stiffness, fever greater than 100.4F, chest pain, shortness of breath, persistent nausea, vomiting, slurred speech, difficulty walking, numbness/tingling, weakness,
signs of infection or any other symptoms that are worrisome to you.
Please call [phone] if you have any questions.
Interventions
Interventions:
*Risk Screen - Suicide Last Done: 11/27/24 14:10
*General Assessment Last Done: 11/27/24 14:56
*Neglect/Abuse Screening Last Done: 11/27/24 14:10
*ED COVID-19 Vaccine History Last Done: 11/27/24 14:56
ED- Cardiac Assessment Last Done: 11/27/24 16:55
ED- Pulmonary Assessment Last Done: 11/27/24 16:55
Discharge Date and Time
Print Language: TURKMEN
[2024-11-27 17:00] VITALS: BP 120/63
== END 2024-11-27 18:35 | disposition home or self-care (01) ==
LOC: EMR 14:06
PROVIDERS: EMERGENCY PHYSICIAN Emergency Medicine; FAMILY PHYSICIAN Family Medicine
DX: D64.9 Anemia, unspecified (principal); R06.00 Dyspnea, unspecified; R00.0 Tachycardia, unspecified; E78.00 Pure hypercholesterolemia, unspecified; I10 Essential (primary) hypertension; C90.00 Multiple myeloma not having achieved remission; Z86.73 Personal history of transient ischemic attack (TIA), and cerebral infarction without residual deficits; Z95.5 Presence of coronary angioplasty implant and graft
CPT/HCPCS: 99285; 71046; 71275; 80053; 83880; 84484; 85025; 93005; Q9967

== ENCOUNTER 2024-12-17 03:43 | Emergency (ER) | payer OTHER, SELFPAY ==
[2024-12-17 03:50] VITALS: BP 127/76; BMI 28.3
[2024-12-17 04:00] VITALS: BP 139/82
[2024-12-17 04:03] LABS: % Basophils 0.3 % (0-2); % Eosinophils 0.1 % (0-6); % Immature Granulocytes 0.4 % (0-0.5); % Lymphocytes 5.3 % (20.5-51.1); % Monocytes 0.4 % (1.7-9.3); % Neutrophils 93.5 % (42.2-75.2); Absolute Lymphocytes 0.4 10^3/uL (1.2-3.4); Absolute Neutrophils 7.5 10^3/uL (1.4-6.5); Hematocrit 32.5 % (39.0-52.0); Mean Corp Hgb Conc. 30.8 g/dL (33.0-37.0); Mean Corpuscular Hgb 26.5 pg (27.0-31.0); Mean Platelet Volume 10.6 fL (7.4-10.4); Nucleated Red Blood Cells % 0.3 % (-); Platelet Count 253 10^3/uL (130-400); Red Blood Cell Count 3.78 10^6/uL (4.70-6.10); Red Cell Dist. Width 20.4 % (11.5-14.5)
[2024-12-17 04:28] LABS: ALT (SGPT) 17 U/L (0-50); AST (SGOT) 18 U/L (17-59); Albumin 4.3 g/dl (3.5-5.0); Alkaline Phosphatase 86 U/L (38-126); Blood Urea Nitrogen 34 mg/dl (9-20); Calcium 9.2 mg/dl (8.4-10.2); Carbon Dioxide 18 mmol/L (22-30); Chloride 113 mmol/L (98-107); Estimated Creatinine Clearance 58 ml/min; Glucose 116 mg/dl (70-99); Sodium 143 mmol/L (135-145); Total Bilirubin 0.5 mg/dl (0.2-1.3); eGFR > 60.00
[2024-12-17] MEDS: NSS 1000 IV (04:44)
[2024-12-17] MEDS: PERCOCET 5/325 1 TABLET PO (04:45)
--- NOTE | 2024-12-17 04:56 | ED.GENMED ---
History of Present Illness
General
Chief Complaint: Weakness
Source: patient, records and previous hospital records
Exam Limitations: none
Time Seen by Provider: 12/17/24 04:15
Nursing documentation reviewed up to this point in time: agreed with
History of Present Illness
History of Present Illness:
69-year-old male history of CAD status post stenting multiple myeloma recurrent bladder bladder and GI bleeding, chronic pain syndrome due to chronic back pain previously seen by pain management is prepping for colonoscopy developed chills sweats
necessitating emergency department visit when I saw the patient states he feels weak and his chronic low back pain has been bothering him he was seen in the ER recently had a full workup, discharged home
Past History
Past History
ED Past Medical History: CVA, HTN, Hypercholesterolemia, [place] and Other (Osteoarthritis, Anemia)
ED Past Surgical History: Cardiac (stents)
Social History
Tobacco: Non-smoker
Alcohol: None
Drug: None
Living: with family
Employment: Retired
Review of Systems
Review of Systems
All Other Systems: Not applicable
Constitutional: Reports fatigue and chills
EENT: Reports no symptoms
Respiratory: Denies cough or trouble breathing
Cardiac: Reports diaphoresis; Denies chest pain, palpitations or syncope
ABD/GI: Reports abdominal pain, nausea and diarrhea
: Reports no symptoms
Musculoskeletal: Reports muscle pain
Skin: Reports no symptoms
Neurological: Reports weakness; Denies headache
Phy Exam
Physical Exam
Physical Exam:
Physical Exam
General: Chronically ill male nontoxic
Neck: Lips are slightly dry
Heart: Tachycardia
Lungs: no acute respiratory distress. clear bilaterally
Abdomen: Soft not tender
Neuro: alert and oriented. Able to lift his legs off the bed bilaterally appears to have subtle weakness of the left lower extremity
Skin: no rash
Psychiatric: well kept. interactive and cooperative
Extremities: no edema.
Course
Orders/Labs/Results
Orders:
Orders
12/17/24 03:56
Type And Crossmatch [Type+Screen] Urgent
Complete Blood Count/With Diff Urgent
Comprehensive Metabolic Panel Urgent
12/17/24 04:22
ABO2 Routine
BBK Wristband Number:
Associate notified that ABO2 has been ordered: [id number]
Date: 12/17/24
Time: 04:03
Hunting Guide ID: [id number]
12/17/24 04:30
0.9% Sodium Chloride 1000 ml [Nss] 1,000 ml IV BOLUS
Oxycodone/Acetaminophen [Percocet 5/325] 1 tablet PO NOW STA
12/17/24 04:31
Electrocardiogram (*1) Urgent
Reason for Study: QTc Monitoring
EKG- Treatment ONCE
Abnormal Lab Results
12/17/24
03:56
RBC 3.78 L 10^6/uL
(4.70-6.10)
Hgb 10.0 L g/dL
(13.0-18.0)
Hct 32.5 L %
(39.0-52.0)
MCH 26.5 L pg
(27.0-31.0)
MCHC 30.8 L g/dL
(33.0-37.0)
RDW 20.4 H %
(11.5-14.5)
MPV 10.6 H fL
(7.4-10.4)
Absolute Neuts (auto) 7.5 H 10^3/uL
(1.4-6.5)
Absolute Lymphs (auto) 0.4 L 10^3/uL
(1.2-3.4)
Absolute Monos (auto) 0.0 L 10^3/uL
(0.1-0.6)
Neutrophils % 93.5 H %
(42.2-75.2)
Lymphocytes % 5.3 L %
(20.5-51.1)
Monocytes % 0.4 L %
(1.7-9.3)
Chloride 113 H mmol/L
(98-107)
Carbon Dioxide 18 L mmol/L
(22-30)
BUN 34 H mg/dl
(9-20)
Glucose 116 H mg/dl
(70-99)
12/17/24 03:56
12/17/24 03:56
Vital Signs
Initial and Last Documented VS:
Initial Vital Signs
Temp Pulse Resp BP Pulse Ox
98.8 F 118 30 127/76 98
12/17/24 03:50 12/17/24 03:50 12/17/24 03:50 12/17/24 03:50 12/17/24 03:50
Last Documented Vital Signs
Temp Pulse Resp BP Pulse Ox
98.8 F 113 30 115/57 95
12/17/24 03:50 12/17/24 05:00 12/17/24 05:00 12/17/24 05:00 12/17/24 05:00
MDM/Problems Addressed
Differential Diagnosis Includes:
Deconditioning dehydration multiple myeloma electrolyte abnormality anemia occult infection
MDM/Problems Addressed:
Weakness fatigue chronic back
Chronic conditions affecting care:
Chronic back pain multiple myeloma CAD anemia prepping colonoscopy
Chronic conditions affecting care: Cancer
Acute Exacerbation and/or Progression of Chronic Illness: Cancer
*Pulse Oximetry
Patient hypoxic: no
*Pomologist Interpretation
Rate: tachycardiac
Interpretation: abnormal
Heart Rate: 120
Rhythm: sinus
*Critical Care Note
Total Time (30-74mins, 75-104mins- exclusive of procedures): Not Applicable
Data Reviewed
Review of Other/Old Records Reveals: Labs, Records, Progress Notes and Discharge Summary
Source: patient and records
Update Note
Update Note:
5:45 AM after IV fluids and a Percocet patient's vital signs are normalizing he is feeling better, he would like to try to get his colonoscopy today as scheduled at 9 AM we will continue with his prep
ED Attending Note
-
Portions of this chart may have been created with voice recognition software.� Occasional wrong word or��sound alike� substitutions may have occurred due to the inherent limitations of voice recognition software.
Discharge Plan
Departure
Patient Disposition: Home (Routine Discharge)
Date of Disposition: 12/17/24
Time of Disposition: 05:44
Patient with high blood pressure during this ER visit?: No
Condition: Good
Covid-19: Not Applicable
Discharge Problem:
Dehydration
Instructions: Generalized Weakness (DC)
Prescriptions:
No Action
lisinopril 20 mg Tablet
20 mg PO DAILY
allopurinol 300 mg Tablet
300 mg PO DAILY
prednisone 10 mg Tablet
10 mg PO BID
rosuvastatin 40 mg Tablet
40 mg PO QPM Qty: 90 3RF
aspirin 81 mg Tablet,Chewable
81 mg PO DAILY Qty: 90 3RF
clopidogrel 75 mg Tablet
75 mg PO DAILY Qty: 90 3RF
metoprolol succinate 25 mg Tablet Extended Release 24 Hr
25 mg PO DAILY Qty: 90 3RF
nitroglycerin 0.4 mg tablet, sublingual
0.4 mg sublingual [id number] PRN (Reason: chest pain) Qty: 25 2RF
lidocaine 4 % Adhesive Patch,Medicated
1 patch topical DAILY PRN (Reason: back pain) Qty: 30 0RF
Referrals:
Louis Toribio MD [Family Provider, Family Practice]
Activity Restrictions/Additional Instructions:
Go to get your colonoscopy today as scheduled
Interventions
Interventions:
*Risk Screen - Suicide Last Done: 12/17/24 03:47
*General Assessment Last Done: 12/17/24 03:47
*Neglect/Abuse Screening Last Done: 12/17/24 03:47
*ED- Fall Risk Assessment Last Done: 12/17/24 03:47
*ED COVID-19 Vaccine History Last Done: 12/17/24 03:47
ED- Cardiac Assessment Last Done: 12/17/24 04:21
ED- Neurological Assessment Last Done: 12/17/24 04:21
ED- Pulmonary Assessment Last Done: 12/17/24 04:21
Discharge Date and Time
Print Language: GERMAN
[2024-12-17 05:00] VITALS: BP 115/57
[2024-12-17 06:00] VITALS: BP 117/57
[2024-12-17 07:00] VITALS: BP 114/53
== END 2024-12-17 08:35 | disposition home or self-care (01) ==
LOC: EMR 03:43
PROVIDERS: EMERGENCY PHYSICIAN Emergency Medicine; FAMILY PHYSICIAN Family Medicine
DX: E86.0 Dehydration (principal); C90.00 Multiple myeloma not having achieved remission; I10 Essential (primary) hypertension; I25.10 Atherosclerotic heart disease of native coronary artery without angina pectoris; E78.00 Pure hypercholesterolemia, unspecified; Z86.73 Personal history of transient ischemic attack (TIA), and cerebral infarction without residual deficits; Z95.5 Presence of coronary angioplasty implant and graft; G89.4 Chronic pain syndrome
CPT/HCPCS: 96360; 99284; 80053; 85025; 86850; 86900; 86901; 93005

== ENCOUNTER → 2024-12-18 16:11 | Outpatient (REF) | payer OTHER, SELFPAY ==
[2024-12-18 13:53] LABS: % Basophils 0.1 % (0-2); % Eosinophils 0.1 % (0-6); % Immature Granulocytes 0.3 % (0-0.5); % Lymphocytes 5.7 % (20.5-51.1); % Monocytes 2.6 % (1.7-9.3); % Neutrophils 91.2 % (42.2-75.2); Absolute Immature Granulocytes 0.1 10^3/uL (0-0.05); Absolute Lymphocytes 0.9 10^3/uL (1.2-3.4); Absolute Monocytes 0.4 10^3/uL (0.1-0.6); Absolute Neutrophils 13.9 10^3/uL (1.4-6.5); Hematocrit 29.2 % (39.0-52.0); Hemoglobin 8.9 g/dL (13.0-18.0); Mean Corp Hgb Conc. 30.5 g/dL (33.0-37.0); Mean Corpuscular Hgb 26.1 pg (27.0-31.0); Mean Corpuscular Volume 85.6 fL (80.0-94.0); Mean Platelet Volume 10.7 fL (7.4-10.4); Platelet Count 273 10^3/uL (130-400); Red Blood Cell Count 3.41 10^6/uL (4.70-6.10); White Blood Cell Count 15.3 10^3/uL (4.8-10.8)
== END ==
LOC: OIDL 16:11
PROVIDERS: ATTENDING PHYSICIAN Nurse Practitioner Primary Care
DX: C90.00 Multiple myeloma not having achieved remission (principal); D50.0 Iron deficiency anemia secondary to blood loss (chronic)
CPT/HCPCS: 85025

== ENCOUNTER → 2025-01-19 09:37 | Outpatient (REF) | payer OTHER, SELFPAY | LOC: PAVMRI 09:37 | PROVIDERS: ATTENDING PHYSICIAN Physical Medicine & Rehabilitation; FAMILY PHYSICIAN Family Medicine | DX: M54.16 Radiculopathy, lumbar region (principal) | CPT/HCPCS: 72148 ==

== ENCOUNTER 2025-01-27 22:02 | Emergency (ER) | payer OTHER, SELFPAY ==
[2025-01-27 22:10] VITALS: BP 193/79
[2025-01-27 22:42] LABS: Hematocrit 31.9 % (39.0-52.0); Hemoglobin 9.9 g/dL (13.0-18.0); Mean Corp Hgb Conc. 31.0 g/dL (33.0-37.0); Mean Corpuscular Volume 89.1 fL (80.0-94.0); Nucleated Red Blood Cells % 0 % (-); Platelet Count 226 10^3/uL (130-400); Red Cell Dist. Width 18.7 % (11.5-14.5)
[2025-01-27 23:13] LABS: ALT (SGPT) 24 U/L (0-50); AST (SGOT) 16 U/L (17-59); Albumin 4.4 g/dl (3.5-5.0); Alkaline Phosphatase 85 U/L (38-126); Blood Urea Nitrogen 25 mg/dl (9-20); Calcium 9.3 mg/dl (8.4-10.2); Carbon Dioxide 26 mmol/L (22-30); Chloride 105 mmol/L (98-107); Glucose 121 mg/dl (70-99); Potassium 4.6 mmol/L (3.5-5.1); Sodium 138 mmol/L (135-145); Total Protein 7.5 g/dl (6.3-8.2); eGFR > 60.00
[2025-01-28 01:03] VITALS: BP 187/80
[2025-01-28 01:05] VITALS: BMI 28.2
--- NOTE | 2025-01-28 01:30 | ED.GENMED ---
History of Present Illness
General
Chief Complaint: Headache
Source: patient
Exam Limitations: none
Time Seen by Provider: 01/28/25 00:53
Nursing documentation reviewed up to this point in time: agreed with
History of Present Illness
History of Present Illness:
Note:
CHIEF COMPLAINT(S)
Severe headache and neck pain.
HISTORY OF PRESENT ILLNESS
The patient is a 69-year-old male with a pmh of CVA, HTN, HLP, multiple myeloma, anemia, who presents to the ER today with severe headache and neck pain that has persisted constantly for the past three weeks. The patient reports that nothing
improves the pain. The pain starts in the neck and radiates upwards into the head, sometimes becoming so severe that the patient is unable to lift his head or function normally. He describes the pain as being unlike any headache he has experienced
before. The patient also reports associated dizziness, which began concurrently with the headache but worsened over the past week. There has been one episode of vomiting this evening as well as some intermittent dizziness but no chest pain, or
fever. There is no known history of migraines or previous headaches of similar intensity. The patient does not recall any recent trauma to the head or neck and denies any numbness or tingling in the arms. The patient has tried [id number]
acetaminophen which has not helped. He saw his primary care provider for the symptoms one week ago and was prescribed oxycodone as well as a muscle relaxant which did not help his symptoms.
PHYSICAL EXAM
- Nursing notes reviewed and vital signs reviewed.
General: Patient is well appearing and in no acute distress; non-toxic
Skin: Warm and dry, no rashes or lesions
Head: Normocephalic, atraumatic
Eyes: Sclera non-icteric. EOMs intact.
Cardiac: Regular rate and rhythm, no murmurs
Peripheral Vascular: No lower extremity swelling or edema
Pulm: Normal respiratory effort
Abdomen: No abdominal tenderness
Musculoskeletal: 5 of 5 strength in bilateral upper extremities and lower extremities. There is some tenderness noted to palpation at the base of the skull and adjacent to the cervical spine.
Neuro: CN II-XII intact, no focal neurologic deficits. Normal finger-nose, heel wilkins testing. Normal gait.
Psychiatric: Appropriate mood and affect.
PLAN
1. Administer medication for pain relief.
2. Proceed with a computed tomography (CT) scan of the head to further evaluate the cause of the symptoms. Will provide Reglan and Benadryl initially and and Toradol after CT scan results.
DIFFERENTIAL DIAGNOSIS
The Differential Diagnosis includes, in no particular order and is not limited to:
1. Tension headache
2. Migraine
3. Cervicogenic headache
4. Subarachnoid hemorrhage
5. Meningitis
6. Brain tumor or mass
7. Temporal arteritis
8. Cervical spine disorder
9. Vestibular dysfunction
10. Hypertensive crisis
UPDATES
2:10 AM�patient notes that his pain is sightly improved from prior and he feels more comfortable, he is going to CT scan
3:25 AM, back in to reassess patient, patient still in pain. Will give dose of IV Toradol as well as fluids. Patient's blood pressure remains elevated. Suspect from pain however patient does admit that he did not take his blood pressure
medications today because he was not feeling well. Because of this, will give his home medications. Patient states that he takes lisinopril and metoprolol. He no longer takes carvedilol or amlodipine.
4:50 AM-after Toradol and IV fluids, he only notes minimal pain at this time and states that he feels well enough to go home. Patient states that he does have an orthopedist that he follows with. Will also provide a referral for orthopedist.
Discussed importance of taking blood pressure medication and discussed following up with primary care provider
MDM/DISPOSITION
This is a 69-year-old male with past medical history of CVA, hypertension, hyperlipidemia who presents emergency department today with concerns of a daily headache for the past 3 weeks. He initially saw his primary care provider for this issue was
given oxycodone and muscle relaxants which did not help. The headache stems from the back of the neck. Patient does have a history of osteoarthritis in his cervical spine. Patient does follow with orthopedist. Patient states that he did have 1
episode of nausea this evening because of the pain and brief episode of dizziness but no neurologic symptoms. On physical exam he is well-appearing no acute distress he has no neurologic deficits he has a normal gait. Symptoms initially improved
with Reglan however after CAT scan symptoms persisted and patient subsequently given Toradol. On review of his blood work, his hemoglobin is at baseline he does have elevated BUN and creatinine ratio he was given IV fluid bolus. Patient does admit
to not taking his blood pressure medications. Suspect this to be a cause of his elevated blood pressure along with acute pain response. Patient was given his home blood pressure meds and is feeling better and feels well enough to go home. Advised
follow-up with primary and Ortho. Suspect cervicogenic headache. Patient stable for discharge.
Past History
Past History
ED Past Medical History: CVA, HTN, Hypercholesterolemia, [place] and Other (Osteoarthritis, Anemia)
ED Past Surgical History: Cardiac (stents)
Social History
Tobacco: Non-smoker
Alcohol: None
Drug: None
Living: with family
Employment: Retired
Review of Systems
Review of Systems
All Other Systems: ROS reviewed and negative except as documented in HPI and ROS
Phy Exam
Physical Exam
Physical Exam:
see hpi
Course
Orders/Labs/Results
Orders:
Orders
01/27/25 22:28
Complete Blood Count/With Diff Urgent
Comprehensive Metabolic Panel Urgent
01/28/25
CT Head W/o Iv Contrast Urgent
Reason For Exam: head pain
01/28/25 01:09
Electrocardiogram (*1) Urgent
Reason for Study: QTc Monitoring
01/28/25 01:11
Diphenhydramine [Benadryl] 12.5 mg IV NOW STA
Metoclopramide [Reglan] 10 mg IV NOW STA
01/28/25 03:21
0.9% Sodium Chloride 500 ml [Nss] 500 ml IV BOLUS
Ketorolac [Toradol] 15 mg IV NOW STA
01/28/25 03:35
Lisinopril [Zestril] 20 mg PO NOW STA
Metoprolol [Lopressor] 25 mg PO NOW STA
Abnormal Lab Results
01/27/25
22:28
RBC 3.58 L 10^6/uL
(4.70-6.10)
Hgb 9.9 L g/dL
(13.0-18.0)
Hct 31.9 L %
(39.0-52.0)
MCHC 31.0 L g/dL
(33.0-37.0)
RDW 18.7 H %
(11.5-14.5)
Abs Immat Gran (auto) 0.1 H 10^3/uL
(0-0.05)
Absolute Neuts (auto) 7.6 H 10^3/uL
(1.4-6.5)
Immature Gran % 1.1 H %
(0-0.5)
Neutrophils % 75.3 H %
(42.2-75.2)
Lymphocytes % 17.0 L %
(20.5-51.1)
BUN 25 H mg/dl
(9-20)
Glucose 121 H mg/dl
(70-99)
AST 16 L U/L
(17-59)
01/27/25 22:28
01/27/25 22:28
Vital Signs
Initial and Last Documented VS:
Initial Vital Signs
Temp Pulse Resp BP Pulse Ox
98.0 F 71 20 193/79 99
01/27/25 22:10 01/27/25 22:10 01/27/25 22:10 01/27/25 22:10 01/27/25 22:10
Last Documented Vital Signs
Temp Pulse Resp BP Pulse Ox
98.0 F 62 19 125/54 98
01/27/25 22:10 01/28/25 05:00 01/28/25 05:00 01/28/25 05:00 01/28/25 04:50
*Pulse Oximetry
SaO2: 99
Oxygen Mode of Delivery: Room air
Patient hypoxic: no
*Critical Care Note
Total Time (30-74mins, 75-104mins- exclusive of procedures): Not Applicable
ED Attending Note
-
Portions of this chart may have been created with voice recognition software.� Occasional wrong word or��sound alike� substitutions may have occurred due to the inherent limitations of voice recognition software.
Discharge Plan
Departure
Patient Disposition: Home (Routine Discharge)
Date of Disposition: 01/28/25
Time of Disposition: 05:03
Patient with high blood pressure during this ER visit?: Yes
Condition: Good
Discharge Problem:
Headache, Neck pain
Instructions: Headache, Adult (DC), BLOOD PRESSURE
Prescriptions:
No Action
lisinopril 20 mg Tablet
20 mg PO DAILY
allopurinol 300 mg Tablet
300 mg PO DAILY
prednisone 10 mg Tablet
10 mg PO BID
rosuvastatin 40 mg Tablet
40 mg PO QPM Qty: 90 3RF
aspirin 81 mg Tablet,Chewable
81 mg PO DAILY Qty: 90 3RF
clopidogrel 75 mg Tablet
75 mg PO DAILY Qty: 90 3RF
metoprolol succinate 25 mg Tablet Extended Release 24 Hr
25 mg PO DAILY Qty: 90 3RF
nitroglycerin 0.4 mg tablet, sublingual
0.4 mg sublingual [id number] PRN (Reason: chest pain) Qty: 25 2RF
lidocaine 4 % Adhesive Patch,Medicated
1 patch topical DAILY PRN (Reason: back pain) Qty: 30 0RF
Referrals:
Louis Toribio MD [Family Provider, Family Practice]
Activity Restrictions/Additional Instructions:
Please call your orthopedist this week to schedule a follow-up appointment. Please follow-up with your primary care provider.
PLEASE RETURN TO THE EMERGENCY DEPARTMENT SHOULD YOU DEVELOP DOUBLE VISION, TROUBLE SWALLOWING, TROUBLE WALKING, DIZZINESS, LIGHTHEADEDNESS, FAINTING SPELLS, CHEST PAIN, SHORTNESS OF BREATH, OR ANY OTHER SIGNS OR SYMPTOMS WORRISOME TO YOU.
Interventions
Interventions:
*Risk Screen - Suicide Last Done: 01/28/25 00:58
*General Assessment Last Done: 01/27/25 22:10
*Neglect/Abuse Screening Last Done: 01/28/25 00:58
ED- Neurological Assessment Last Done: 01/28/25 01:06
Discharge Date and Time
Print Language: CAMBODIAN
[2025-01-28] MEDS: BENADRYL 12.5 MG IV (01:32)
[2025-01-28] MEDS: REGLAN 10 MG IV (01:32)
[2025-01-28 02:00] VITALS: BP 173/84
[2025-01-28 03:20] VITALS: BP 174/92
[2025-01-28] MEDS: TORADOL 15 MG IV (03:35)
[2025-01-28] MEDS: NSS 500 IV (03:37)
[2025-01-28] MEDS: LOPRESSOR 25 MG PO (03:42)
[2025-01-28] MEDS: ZESTRIL 20 MG PO (03:42)
[2025-01-28 04:50] VITALS: BP 130/53
[2025-01-28 05:00] VITALS: BP 125/54
== END 2025-01-28 06:11 | disposition home or self-care (01) ==
LOC: EMR 22:02
PROVIDERS: Emergency Medicine; EMERGENCY PHYSICIAN Emergency Medicine; FAMILY PHYSICIAN Family Medicine
DX: R51.9 Headache, unspecified (principal); M54.2 Cervicalgia; E78.00 Pure hypercholesterolemia, unspecified; Z86.73 Personal history of transient ischemic attack (TIA), and cerebral infarction without residual deficits; Z85.79 Personal history of other malignant neoplasms of lymphoid, hematopoietic and related tissues; I10 Essential (primary) hypertension; Z95.5 Presence of coronary angioplasty implant and graft
CPT/HCPCS: 96374; 96375; 96361; 99284; 70450; 80053; 85025; 93005

== ENCOUNTER 2025-01-31 22:41 | Inpatient (IN) | payer OTHER, SELFPAY ==
[2025-01-31] VITALS (9 sets, daily range): BP systolic 115–155; BP diastolic 66–101; BMI 26.1
[2025-01-31 15:41] LABS: Hematocrit 34.8 % (39.0-52.0); Hemoglobin 10.9 g/dL (13.0-18.0); Mean Corp Hgb Conc. 31.3 g/dL (33.0-37.0); Mean Corpuscular Volume 88.3 fL (80.0-94.0); Nucleated Red Blood Cells % 0 % (-); Platelet Count 231 10^3/uL (130-400); Red Cell Dist. Width 18.7 % (11.5-14.5)
[2025-01-31 16:15] LABS: ALT (SGPT) 17 U/L (0-50); AST (SGOT) 15 U/L (17-59); Albumin 4.6 g/dl (3.5-5.0); Alkaline Phosphatase 103 U/L (38-126); Blood Urea Nitrogen 30 mg/dl (9-20); Calcium 9.1 mg/dl (8.4-10.2); Carbon Dioxide 24 mmol/L (22-30); Chloride 98 mmol/L (98-107); Glucose 142 mg/dl (70-99); Potassium 3.8 mmol/L (3.5-5.1); Sodium 133 mmol/L (135-145); Total Protein 7.9 g/dl (6.3-8.2); eGFR 59.10
--- NOTE | 2025-01-31 18:18 | ED.GENMED ---
History of Present Illness
General
Chief Complaint: Headache
Time Seen by Provider: 01/31/25 18:00
History of Present Illness
History of Present Illness:
69-year-old male presents the emergency department for evaluation of intractable headache for the past 3 weeks. He reports a bilateral cervical/occipital headache that radiates to the buttock and down the legs. Describes it as severe. He was seen
here 3 days ago for this and had CT scans and lab work that were unremarkable. States nothing he takes alleviates the pain. Denies any upper or lower extremity paresthesias. No vision changes or night sweats.
Past History
Past History
ED Past Medical History: CVA, HTN, Hypercholesterolemia, [place] and Other (Osteoarthritis, Anemia)
ED Past Surgical History: Cardiac (stents)
Social History
Tobacco: Non-smoker
Alcohol: None
Drug: None
Living: with family
Employment: Retired
Review of Systems
Review of Systems
Allergies reviewed?: Yes
All Other Systems: ROS reviewed and negative except as documented in HPI and ROS
Phy Exam
Physical Exam
Physical Exam:
GEN: Well appearing, NAD, WDWN
HEENT: Oral mucosa moist, no scleral icterus
Cardiac: Regular rate
Lung: No respiratory distress, no tachypnea
MSK: No gross deformity or injuries
Skin: Good color, no pallor or jaundice, no rashes
Neuro: AO x3, moves all extremities freely
Psych: Calm, cooperative
Course
Orders/Labs/Results
Orders:
Orders
01/31/25 15:33
Complete Blood Count/With Diff Urgent
Comprehensive Metabolic Panel Urgent
Erythrocyte Sed Rate Urgent
Comment: ADD ON
01/31/25 19:28
Ketorolac [Toradol] 15 mg IV NOW STA
Magnesium Sulfate 2 Gram/50 ml [Magnesium Sulfate] 2 gram in 50 ml IV NOW
Metoclopramide [Reglan] 10 mg IV NOW STA
01/31/25 20:00
Urinalysis Reflex To Culture Urgent
01/31/25 20:40
COVID-19 Antigen Urgent
Source: Nasal Swab
Influenza A+B Rapid Molecular Urgent
ANA M Source: Nasal Swab
Specimen Description:
01/31/25 21:37
Valproate Sodium [Depacon] 500 mg 0.9% Sodium Chloride 50 ml [Nss] 50 ml IV NOW
01/31/25 22:05
Add On- LAB Stat
Tests Added?: ESR
01/31/25 22:06
Admit/Transfer Patient As Directed
Co-Sign Provider:
Level of Care: Inpatient admission
Assign to:: Medical/Surgical
Physician / Group: jamey
Diagnosis: intractable NELSON
Reason for Hospitalization: interactable NELSON
Expected length of stay greater than two midnights?: Yes
ELOS- Estimated Length of Stay in days: 3
I certify the patient meets the requirements for IP care: Yes
PRN Pain Medication Management As Directed
May give lesser potent ordered pain med per pt: Yes
preference::
Protocol:: Medication orders for pain may be administered in a
manner that supports deferring to patient preference
when the pt is:
- Requesting an ordered lesser potent pain medication.
Least to most potent pain medications are defined
as: acetaminophen < NSAID < tramadol < opioids
(morphine, oxycodone, hydromorphone).
- Requesting a lesser dose of the same medication IF
ORDERED.
- Requesting a less intrusive route of administration
if both routes are prescribed by the provider (PO <
IV).
01/31/25 22:07
Code Status As Directed
Resuscitation Status: Full Code
01/31/25 22:41
Blood Culture Q30M
ANA M Source: Blood/Venous
Specimen Description:
07/18/25 22:57
Blood Culture Q30M
ANA M Source: Blood/Venous
Specimen Description:
02/01/25 00:18
Acetaminophen [Tylenol] 650 mg PO Q4HPRN PRN
Bisacodyl [Dulcolax] 10 mg RECTAL [id number] PRN
Docusate W/Senna [Senokot-S] 1 tablet PO BIDPRN PRN
Ketorolac [Toradol] 15 mg IV Q8HPRN PRN
Metoclopramide [Reglan] 10 mg IV Q6HPRN PRN
Polyethylene Glycol Powder [Miralax] 17 grams PO DAILYPRN PRN
02/01/25 00:18
Consult Notification Routine
Specialty to Notify: Neurology
NEUROLOGY CONSULT Routine
Consulting Provider: Lucius Gordon
Was physician already notified: No
Reason for consult: headache
Activity As Directed
Activity Level: As Tolerated
Vital Signs As Directed
Frequency: Per unit guidelines
DX Deep Vein Thrombosis Video Routine
02/01/25 Breakfast
Cholesterol Lowering
Cholesterol Lowering: Sodium, 2 Gram
Complete Blood Count/No Diff IN AM
02/01/25 08:00
Allopurinol [Zyloprim] 300 mg PO DAILY
Citalopram [Celexa] 20 mg PO DAILY
Ezetimibe [Zetia] 10 mg PO DAILY
Prednisone [Deltasone] 10 mg PO DAILY
Tizanidine [Zanaflex] 4 mg PO TID
02/01/25 18:00
Enoxaparin Sodium [Lovenox] 40 mg SC QPM
Rosuvastatin Calcium [Crestor] 40 mg PO QPM
02/02/25 06:00
Complete Blood Count/No Diff IN AM
02/03/25 06:00
Complete Blood Count/No Diff IN AM
Abnormal Lab Results
07/18/25
15:33
WBC 11.2 H 10^3/uL
(4.8-10.8)
RBC 3.94 L 10^6/uL
(4.70-6.10)
Hgb 10.9 L g/dL
(13.0-18.0)
Hct 34.8 L %
(39.0-52.0)
MCHC 31.3 L g/dL
(33.0-37.0)
RDW 18.7 H %
(11.5-14.5)
Abs Immat Gran (auto) 0.1 H 10^3/uL
(0-0.05)
Absolute Neuts (auto) 8.4 H 10^3/uL
(1.4-6.5)
Immature Gran % 0.6 H %
(0-0.5)
Lymphocytes % 17.9 L %
(20.5-51.1)
ESR 83 H mm/hour
(0-20)
Sodium 133 L mmol/L
(135-145)
BUN 30 H mg/dl
(9-20)
Glucose 142 H mg/dl
(70-99)
AST 15 L U/L
(17-59)
01/31/25 15:33
01/31/25 15:33
Vital Signs
Initial and Last Documented VS:
Initial Vital Signs
Temp Pulse Resp BP Pulse Ox
97.7 F 88 16 115/74 99
01/31/25 15:25 01/31/25 15:25 01/31/25 15:25 01/31/25 15:25 01/31/25 15:25
Last Documented Vital Signs
Temp Pulse Resp BP Pulse Ox
100.8 F H 86 17 128/66 93
01/31/25 19:56 01/31/25 23:45 01/31/25 23:45 01/31/25 23:00 01/31/25 21:30
MDM/Problems Addressed
MDM/Problems Addressed:
Unclear etiology to patient's intractable headache. I did perform a lesser occipital nerve block with only minimal improvement and IV migraine therapies provided no benefit either. Given intractable pain with recent negative CT will admit for
further management. Of note he was noted to be febrile during ED stay without clear etiology
*Pulse Oximetry
SaO2: 97
Oxygen Mode of Delivery: Room air
Patient hypoxic: no
*Critical Care Note
Total Time (30-74mins, 75-104mins- exclusive of procedures): Not Applicable
ED Attending Note
-
Portions of this chart may have been created with voice recognition software.� Occasional wrong word or��sound alike� substitutions may have occurred due to the inherent limitations of voice recognition software.
Discharge Plan
Departure
Patient Disposition: Admit
Date of Disposition: 01/31/25
Time of Disposition: 21:23
Admit to: Med/Surg
Presentation/result/management discussed w/ accepting MD/DO: Hospitalist
Discharge Problem:
Intractable headache
Interventions
Interventions:
*Risk Screen - Suicide Last Done: 01/31/25 15:25
*General Assessment Last Done: 01/31/25 15:25
*Neglect/Abuse Screening Last Done: 01/31/25 15:25
*ED- Fall Risk Assessment Last Done: 01/31/25 17:12
*ED COVID-19 Vaccine History Last Done: 01/31/25 17:12
*Nursing Disposition Last Done: 01/31/25 23:50
ED- Neurological Assessment Last Done: 01/31/25 17:40
Discharge Date and Time
Discharge Date/Time: 01/31/25 23:50
[2025-01-31] MEDS: REGLAN 10 MG IV (19:44)
[2025-01-31] MEDS: TORADOL 15 MG IV (19:46)
[2025-01-31] MEDS: MAGNESIUM SULFATE 50 IV (19:49)
[2025-01-31 21:03] LABS: COVID-19 Antigen Negative (Negative)
--- NOTE | 2025-01-31 21:32 | HPS.HSE ---
Family Physician
-
Family Physician: Louis Toribio
Chief Complaint
-
headache
History of Present Illness
69-year-old male with PMH for chronic back pain, HLD, CVA, GOUT, anxiety presents the emergency department for evaluation of intractable headache for the past 3 weeks. He reports a bilateral cervical/occipital headache. his is also complaining of
lower back pain that radiates to the buttock and down the legs. States nothing he takes alleviates the pain. Denies any upper or lower extremity paresthesias. denied incontinence of bowel and bladder. denied fever, chills, chest pain, sob. denied
dizzy or syncope.denied abdominal pain,n,v,d. denied dysuria or hematuria.
admitting for further management.
Medical History
Past Medical History
Past Medical History: Reports Other
Additional Past Medical History:
NSTEMI
Hypertension
Hyperlipidemia
Coronary artery disease
History. Stroke
Past Surgical History: Reports Other
Social History
Tobacco: Non-smoker
Alcohol: None
Drug: None
Family History
Family History: Not pertinent
Allergies / Home Medications
Allergies reflects when Allergies were last updated in [facility].
Home Medications with original date entered in [facility]
Allergy/Medication List:
Allergies
Allergy/AdvReac Type Severity Reaction Status Date / Time
No Known Allergies Allergy Unverified 01/31/25 17:16
Home Medications
allopurinol 300 mg tablet 300 mg PO DAILY Gout 04/19/24
prednisone 10 mg tablet 10 mg PO BID Anti-Inflammatory 04/19/24
rosuvastatin 40 mg tablet 40 mg PO QPM #90 tabs 04/24/24
citalopram 20 mg tablet 20 mg PO DAILY 01/31/25
cyclobenzaprine 10 mg tablet 10 mg PO TID PRN muscle spasms 01/31/25
ezetimibe 10 mg tablet (Zetia) 10 mg PO DAILY 01/31/25
Review of Systems
-
Constitutional: Reports No Symptoms
EENT: Reports No Symptoms
Respiratory: Reports No Symptoms
Cardiac: Reports No Symptoms
Abdomen/GI: Reports No Symptoms
: Reports No Symptoms
Musculoskeletal: Reports Other (back pain)
Skin: Reports No Symptoms
Neurological: Reports Headache
Endocrine: Reports No Symptoms
Hematologic/Lymphatic: Reports No Symptoms
Psych: Reports No Symptoms
Physical Exam
Vital Signs
Vital Signs
Temp Pulse Resp BP Pulse Ox
100.8 F H 102 24 149/74 96
01/31/25 19:56 01/31/25 19:56 01/31/25 19:56 01/31/25 19:56 01/31/25 19:56
Physical Exam
General: Well Developed, Well Nourished and No Apparent Distress
HEENT: NormoCephalic, Moist mucous membranes and Atraumatic
Respiratory: Clear
Cardiac: S1/S2 and Regular Rhythm; No Murmur or Rub
GI: Soft, Non Tender, Non Distended and Normal Bowel Sounds; No Organomegaly
Rectal: Deferred by Provider
Musculoskeletal: No Clubbing, No Cyanosis and No Edema
Skin: No Rash
Neuro: AO x 3 and Nonfocal/grossly intact
Psych: Calm
Laboratory Results
-
01/31/25 15:33
01/31/25 15:33
Laboratory Results
Total Bilirubin 1.0 mg/dl (0.2-1.3) 01/31/25 15:33
AST 15 U/L (17-59) L 01/31/25 15:33
ALT 17 U/L (0-50) 01/31/25 15:33
Alkaline Phosphatase 103 U/L (38-126) 01/31/25 15:33
Data Reviewed
-
Diagnostic Radiology: Report Reviewed by me
CT Scan: Report Reviewed by me
MRI: Report Reviewed by me
Lab Data: Labs Reviewed by me
Impression/Plan
-
# Intractable headache/neck and lower back pain radiating to buttocks and LE
- CT head negative
- COVID-negative
-MRI with Mild acute or subacute compression fracture of the L2 superior endplate without significant retropulsion.
-head Ct with no acute findings.
-neurology consulted
-Toradol, tizanidine, Reglan continued
-prednisone from home continued
#fever unclear cause
# Leukocytosis likely from steroids
- WBCs 11.2, patient is afebrile
- Continue to monitor
-blood culture sent from ER
# Anemia likely from chronic disease
- Hemoglobin stable at 10.9, no active bleeding continue to monitor
# NSTEMI
# Gout
-Allopurinol
# History of CVA with no residual
# DVT prophylaxis
-Lovenox
# CODE STATUS
-Full code
[2025-01-31] MEDS: DEPACON 55 MG IV (21:52)
--- NOTE | 2025-01-31 22:25 | W.PN.UPDATE ---
Update Note
Progress Note Update
Patient seen in conjunction with NICOLE. I agree defined on exam physical. I concur with assessment and plan listed otherwise.
This is a 69-year-old male with past medical history significant for gout, CAD status post NSTEMI, hyperlipidemia, anemia who presents to the emergency department with several weeks of worsening headache. Denies any trauma. He reports a headache
that is localized in the lower occiput and radiates to the bilateral frontal area and described as tension type sensation. He then radiates down to his neck and shoulders. Worse with head movement. Denies any numbness or tingling. He denies any
difficulty swallowing. He denies any weakness in his upper or lower extremities. Downward alarm signs. He denies any blurry vision or double vision. Denies any temporal sensation. He denies any odynophagia sore throat. Denies any signs sinus
congestion.
He was seen in the Emergency Department 3 days ago and had a CT which shows no acute interval changes.
In the emergency department today patient had a temp of 100.8 but otherwise was hemodynamically stable with a blood pressure of 150/74 pulse rate of 100. He was 76% on room air. CBC shows a white count of 11.2 but otherwise unremarkable. His
electrolytes are stable. BUN and creatinine were stable at 30 and 1.3. Flu test negative. COVID test negative.
He had multiple analgesic interventions and also status post left occipital nerve block. Patient reports that his pain is actually improved compared to arrival in the ED.
Assessment and plan
Intractable headache -occipital headache, outside of age no alarm signs, low-grade temperatures however headache has been ongoing for several weeks. Appears to be tension related. CT head negative 3 days ago.
- admit to med/surg
- toradol, reglan,
- continue prednisone taper
- iv fluids
- neuro consult for intractable headache.
Fever - Source unknown
- check u/a
- blood cultures
- hold abx for now
- if not improved with antipyretics will get ID consult
DVT PPX - heparin sq
code status -full code
--- NOTE | 2025-02-01 03:19 | TRANSFER ---
Pt arrived to 3w from ED via stretcher. Pt pulled over to hospital bed. Pt lethargic but arouses to verbal prompts and can answer admission questions appropriately. Vitals BP 136/71 P 78 R 14 T 97.5 O2 94 on r/a. Pt oriented to unit, call [facility]ama
within reach, plan of care ongoing.
[2025-02-01] MEDS: TORADOL 15 MG IV (03:43)
[2025-02-01 05:23] LABS: Urine Character Clear (Clear)
[2025-02-01 05:29] LABS: Urine Squamous Cell >30 /LPF (Few)
[2025-02-01 05:30] LABS: Urine White Cell >100 /HPF (0-5)
[2025-02-01 06:00] VITALS: BMI 25.7
[2025-02-01 08:31] VITALS: BP 132/78
[2025-02-01 09:43] LABS: Hematocrit 31.4 % (39.0-52.0); Hemoglobin 10.0 g/dL (13.0-18.0); Mean Corp Hgb Conc. 31.8 g/dL (33.0-37.0); Mean Corpuscular Volume 87.7 fL (80.0-94.0); Platelet Count 199 10^3/uL (130-400); Red Cell Dist. Width 17.9 % (11.5-14.5)
--- NOTE | 2025-02-01 09:56 | W.PN.HOSP.TC ---
Addendum entered and electronically signed by Frandy Sanchez MD 02/01/25 16:55:
Patient became hypotensive and symptomatic with dizziness/lightheadedness shortly after neurology did local injection. Came and reevaluated the patient. Ordered stat normal saline 1 L wide open and reevaluate blood pressure after fluid. Asked RN
to inform neurology. Will continue to monitor.
Original Note:
Today's Communication/Plan
-
Neurology eval. IV antibiotics
Assessment / Plan
Assessment / Plan
Physical exam:
General: Acutely ill
HEENT: Normocephalic, Atraumatic and Moist Mucous Membranes
Respiratory: Clear to Auscultation; Negative Wheezes, Rales or Rhonchi
Cardiac: Regular Rhythm and S1/S2
GI: Soft, Nontender and Nondistended
Musculoskeletal: No Clubbing, No Cyanosis and No Edema
Neuro: Awake, Alert and Oriented, no neurological deficit
Psych: Calm
A/P:
# Intractable headache/neck and lower back pain radiating to buttocks and LE
- CT head negative
- COVID-negative
-MRI with Mild acute or subacute compression fracture of the L2 superior endplate without significant retropulsion.
-head Ct with no acute findings.
-neurology consulted
-Toradol, tizanidine, Reglan continued
-prednisone from home continued
- Might require local injection by neurology
#fever likely from UTI
# Leukocytosis likely from steroids
-He does have an abnormal UA with pyuria and bacteriuria and he is symptomatic so we will start him on IV ceftriaxone and follow-up cultures
- WBCs 11.2
- Continue to monitor
-blood culture sent from ER
- Patient tells me he is scheduled to see colorectal surgery as outpatient for possible colon surgery but he also tells me he thinks ?possible 'bladder surgery'
# Anemia likely from chronic disease
- Hemoglobin stable at 10.9, no active bleeding continue to monitor
# NSTEMI
# Gout
-Allopurinol
# History of CVA with no residual
# DVT prophylaxis
-Lovenox
# CODE STATUS
-Full code
Time spent 35 minutes
Anticipated Discharge: 24 - 48 hours
Subjective/Interval History
-
Date of Service: February 01, 2025
Patient complains of headache and neck pain. Patient also reports dysuria urgency and frequency.
Objective Data
-
Labs:
Laboratory Results
02/01/25
09:09
WBC 8.4
Hgb 10.0 L
Hct 31.4 L
Plt Count 199
Vital Signs:
Vital Signs
Temp Pulse Resp BP Pulse Ox
97.8 F 64 16 132/78 94
02/01/25 08:31 02/01/25 08:31 02/01/25 08:31 02/01/25 08:31 01/31/25 23:55
[2025-02-01] MEDS: ZETIA 10 MG PO (10:19)
[2025-02-01] MEDS: CELEXA 20 MG PO (10:19)
[2025-02-01] MEDS: ZYLOPRIM 300 MG PO (10:19)
[2025-02-01] MEDS: ZANAFLEX 4 MG PO ×3 (10:19→22:30)
[2025-02-01] MEDS: DELTASONE 10 MG PO (10:19)
[2025-02-01] MEDS: ROCEPHIN 1000 MG IV (10:19)
[2025-02-01] MEDS: STERILE WATER FOR INJECTION 10 ML IV (10:20)
[2025-02-01] MEDS: SENOKOT-S 1 TABLET PO (10:23)
[2025-02-01] MEDS: TYLENOL 650 MG PO ×2 (10:23→22:30)
--- NOTE | 2025-02-01 10:40 | CON.NEURO ---
Neuro Assessment/Plan
Assessment
occipital neuralgia, with secondary migraine
patient treated with bilateral occipital nerve blocks and OMT, afterwards he reported headache 0/10, neck ROM a little more
he feels ready to go home
Consultation
Order
Date of Consultation: 02/01/25
Requesting Provider: Gino Roberto
Reason for Consult: headache
Subjective/Objective
Subjective Data
Date of Service: February 01, 2025
from h&p:
69-year-old male with PMH for chronic back pain, HLD, CVA, GOUT, anxiety presents the emergency department for evaluation of intractable headache for the past 3 weeks. He reports a bilateral cervical/occipital headache. his is also complaining of
lower back pain that radiates to the buttock and down the legs. States nothing he takes alleviates the pain. Denies any upper or lower extremity paresthesias. denied incontinence of bowel and bladder. denied fever, chills, chest pain, sob. denied
dizzy or syncope.denied abdominal pain,n,v,d. denied dysuria or hematuria.
patient reports 3 weeks sharp stabbing occipital nerve pain, bilateral, worse on the left, at times severe enough to interrupt our conversation; also a holocephalic throbbing pain also coming in waves. +neck pain/stiffness. blurry vision. no
cognitive symptoms, no weakness/numbness
Objective Data
Vital Signs
Temp Pulse Resp BP Pulse Ox
36.6 C 64 16 132/78 94
02/01/25 08:31 02/01/25 08:31 02/01/25 08:31 02/01/25 08:31 01/31/25 23:55
Lab Results
02/01/25 09:09
01/31/25 15:33
Sodium 133 mmol/L (135-145) L 01/31/25 15:33
Potassium 3.8 mmol/L (3.5-5.1) 01/31/25 15:33
BUN 30 mg/dl (9-20) H 01/31/25 15:33
Glucose 142 mg/dl (70-99) H 01/31/25 15:33
Calcium 9.1 mg/dl (8.4-10.2) 01/31/25 15:33
Patient Allergies
No Known Allergies Allergy (Unverified 01/31/25 17:16)
Physical Exam
-
AAOx3, speech clear language intact
face symmetric
full strength
cervical ROM very limited ~10 degrees each side symmetric. palpated right C3 subluxation, muscle tension
Medications
-
Active Medications
Generic Name Dose Route Start Last Admin
Trade Name Freq PRN Reason Stop Dose Admin
Acetaminophen 650 mg 02/01/25 00:18 02/01/25 10:23
Acetaminophen 325 Mg Tablet PO 03/01/25 00:17 650 mg
Q4HPRN PRN Administration
mild pain/NELSON/temp> 100.4F
Allopurinol 300 mg 02/01/25 08:00 02/01/25 10:19
Allopurinol 300 Mg Tablet PO 03/01/25 07:59 300 mg
DAILY AMELIA Administration
Bisacodyl 10 mg 02/01/25 00:18
Bisacodyl 10 Mg Rectal Suppository RECTAL 03/01/25 00:17
[id number] PRN
constipation
Bupivacaine HCl 30 ml 02/01/25 10:38
Bupivacaine 0.5% (Pf) 30 Ml Single Dose Vial INJ 02/01/25 10:39
OR ONE
Ceftriaxone Sodium 1,000 mg 02/01/25 10:00 02/01/25 10:19
Ceftriaxone 1000 Mg / 10 Ml Vial IV 1,000 mg
Q24H AMELIA Administration
Citalopram Hydrobromide 20 mg 02/01/25 08:00 02/01/25 10:19
Citalopram 20 Mg Tablet PO 03/01/25 07:59 20 mg
DAILY AMELIA Administration
Ezetimibe 10 mg 02/01/25 08:00 02/01/25 10:19
Ezetimibe (Zetia) 10 Mg Tablet PO 03/01/25 07:59 10 mg
DAILY AMELIA Administration
Enoxaparin Sodium 40 mg 02/01/25 18:00
Enoxaparin Sodium 40 Mg/0.4 Ml Syringe SC 03/01/25 17:59
QPM AMELIA
Ketorolac Tromethamine 15 mg 02/01/25 00:18 02/01/25 03:43
Ketorolac 15 Mg/Ml Injection IV 02/06/25 00:17 15 mg
Q8HPRN PRN Administration
moderate pain
Metoclopramide HCl 10 mg 02/01/25 00:18
Metoclopramide 10 Mg/2 Ml Vial IV 03/01/25 00:17
Q6HPRN PRN
n/v
Polyethylene Glycol 17 grams 02/01/25 00:18
Polyethylene Glycol Powder 17 Grams Packet PO 03/01/25 00:17
DAILYPRN PRN
constipation
Prednisone 10 mg 02/01/25 08:00 02/01/25 10:19
Prednisone 10 Mg Tablet PO 03/01/25 07:59 10 mg
DAILY AMELIA Administration
Rosuvastatin Calcium 40 mg 02/01/25 18:00
Rosuvastatin (Crestor) 40 Mg Tablet PO 03/01/25 17:59
QPM AMELIA
Senna/Docusate Sodium 1 tablet 02/01/25 00:18 02/01/25 10:23
Docusate W/Senna (Jenna-Colace) Tablet PO 03/01/25 00:17 1 tablet
BIDPRN PRN Administration
constipation
Sodium Chloride 0 flush 02/01/25 01:00
Sodium Chloride 0.9% (Flush) Syringe IV 03/01/25 00:59
PER PROTOCOL AMELIA
Sterile Water 10 ml 02/01/25 10:00 02/01/25 10:20
Sterile Water For Injection 10 Ml Vial IV 03/01/25 09:59 10 ml
Q24H AMELIA Administration
Tizanidine HCl 4 mg 02/01/25 08:00 02/01/25 10:19
Tizanidine 4 Mg Tablet PO 03/01/25 07:59 4 mg
TID AMELIA Administration
Triamcinolone Acetonide 40 mg 02/01/25 10:38
Triamcinolone 40 Mg/Ml (Kenalog-40) 1 Ml Vial IM 02/01/25 10:39
NOW ONE
Home Medications
�Medication �Instructions �Recorded
allopurinol 300 mg tablet 300 mg PO DAILY Gout 04/19/24
prednisone 10 mg tablet 10 mg PO DAILY Anti-Inflammatory 04/19/24
rosuvastatin 40 mg tablet 40 mg PO QPM #90 tabs 04/24/24
citalopram 20 mg tablet 20 mg PO DAILY 01/31/25
cyclobenzaprine 10 mg tablet 10 mg PO TID PRN muscle spasms 01/31/25
ezetimibe 10 mg tablet (Zetia) 10 mg PO DAILY 01/31/25
[2025-02-01] MEDS: SENSORCAINE 0.5% SINGLE DOSE 30 ML INJ (13:20)
[2025-02-01] MEDS: KENALOG-40 40 MG IM (13:20)
--- NOTE | 2025-02-01 15:35 | W.PN.UPDATE ---
Update Note
Progress Note Update
procedure note
86326.50 occipital nerve block
47780 OMT 1-2
M54.81 occipital neuralgia
M99.01 somatic dysfunction cervical region
signed consent on chart
10 cc syringe 22g x 1.5 in needle drawn 5 cc bupivacaine 0.5% and 40 mg Kenalog-40
bilateral occipital nerve block, needle inserted splenius capitis, aspirated, 3 cc injected each side
OMT sub occipital release, right c3 mobilization
after procedure headache 0
--- NOTE | 2025-02-01 15:47 | CM ---
met with patient. he lives with BISHNU Jones in one level home with one step to enter. He uses Single point cane. He had [facility] in 2022. NO history of SNF.
[facility]arman[facility]: [facility]
PCP: Louis Toribio
Plan; home no needs
[2025-02-01 16:05] VITALS: BP 90/48
[2025-02-01] MEDS: NSS 250 IV (16:10)
[2025-02-01] MEDS: NSS 1000 IV (16:17)
[2025-02-01 16:30] VITALS: BP 98/42
[2025-02-01] MEDS: LOVENOX 40 MG SC (16:37)
[2025-02-01] MEDS: CRESTOR 40 MG PO (16:37)
--- NOTE | 2025-02-01 16:38 | PTCARENOTE ---
Pt oob in chair since bedside procedure. no complaints however machine BP SBP 82/52 associated with dizziness drowsiness. manual Bp in chair was 90/48 with complaints of dizziness, his personality was a bit off. Md aware and IV NSS 1 L IVf bolus
was ordered and started. Pt assisted x2 with max assist back to bed, pt only shuffling and dizziness worsened, with 250 Ml in repeate SBP in 98 and he is much more alert.Dr Sanchez came to bedside to assess patient. Will do frequent bp checks.
Dizziness still present but drowsiness is gone.
[2025-02-01 18:08] VITALS: BP 116/54
[2025-02-01] MEDS: LR 1000 IV (19:45)
[2025-02-01 23:00] VITALS: BP 127/61
[2025-02-02 07:25] LABS: Hematocrit 28.5 % (39.0-52.0); Hemoglobin 9.1 g/dL (13.0-18.0); Mean Corp Hgb Conc. 31.9 g/dL (33.0-37.0); Mean Corpuscular Volume 86.6 fL (80.0-94.0); Nucleated Red Blood Cells % 0.2 % (-); Platelet Count 168 10^3/uL (130-400); Red Cell Dist. Width 17.7 % (11.5-14.5)
[2025-02-02 07:39] VITALS: BP 161/60
[2025-02-02 08:02] LABS: Blood Urea Nitrogen 40 mg/dl (9-20); Calcium 8.9 mg/dl (8.4-10.2); Carbon Dioxide 26 mmol/L (22-30); Chloride 103 mmol/L (98-107); Estimated Creatinine Clearance 48 ml/min; Glucose 107 mg/dl (70-99); Potassium 4.5 mmol/L (3.5-5.1); Sodium 134 mmol/L (135-145); eGFR 54.07
--- NOTE | 2025-02-02 08:17 | W.PN.HOSP.TC ---
Today's Communication/Plan
-
Discharge planning today
Assessment / Plan
Assessment / Plan
Physical exam:
General: No acute distress but on discomfort due to headache.
HEENT: Normocephalic, Atraumatic and Moist Mucous Membranes
Respiratory: Clear to Auscultation; Negative Wheezes, Rales or Rhonchi
Cardiac: Regular Rhythm and S1/S2
GI: Soft, Nontender and Nondistended
Musculoskeletal: Tenderness in the back and decreased range of motion. No Clubbing, No Cyanosis and No Edema
Neuro: Awake, Alert and Oriented, no neurological deficit
Psych: Calm
A/P:
Intractable headache likely related to occipital neuralgia:
Neurology consult appreciated
CT head unremarkable
Status post occipital nerve block
Patient improved yesterday but had some postprocedure complications
Today patient states that pain is back
Neurology reevaluated the patient again today
He is medically cleared to discharge pending neurology reevaluation and clearance
Acute on chronic back pain:
Lumbar spine with acute to subacute L2 compression fracture
He has been managed with nonnarcotic pain medications including oral steroids tizanidine and Tylenol (prior Toradol)--> trying to avoid NSAIDs given his underlying CKD. Also trying to avoid narcotics given his age and comorbidities. Will add
Lidoderm patch.
PT OT evaluated patient here
Also will benefit from outpatient PT-discussed with insurance case manager and outpatient PT prescription given.
Transient hypotension post-occipital nerve block:
Given IV fluids yesterday and still on IV fluids today
Stop IV fluids today
UTI:
IV Rocephin--> switch to oral cefuroxime today and follow-up urine culture as outpatient if able to be discharged today
MICHELLE on CKD:
Avoid nephrotoxic including NSAIDs
Monitor renal function as outpatient
History of gout:
Continue allopurinol
Depression:
Continue citalopram
Hyperlipidemia:
Continue statins and Zetia
DVT prophylaxis:
Continue Lovenox SQ
CODE STATUS:
Full code
Anticipated Discharge: Today
Subjective/Interval History
-
Date of Service: February 02, 2025
Patient feels better in terms of dizziness today but occipital frontal headache came back. No nausea or vomiting. No bowel bladder incontinence. Afebrile
Objective Data
-
Labs:
Laboratory Results
02/02/25
07:07
WBC 9.8
Hgb 9.1 L
Hct 28.5 L
Plt Count 168
Sodium 134 L
Potassium 4.5
Chloride 103
Carbon Dioxide 26
BUN 40 H
Creatinine 1.4 H
Glucose 107 H
Calcium 8.9
Vital Signs:
Vital Signs
Temp Pulse Resp BP Pulse Ox
98.3 F 59 20 127/61 94
02/01/25 23:00 02/01/25 23:00 02/01/25 23:00 02/01/25 23:00 02/01/25 23:00
I&O
02/01/25 02/02/25 02/03/25
06:59 06:59 06:59
Intake Total 720 / 720
Balance 720 / 720
[2025-02-02 08:48] VITALS: BP 153/67; BP 155/67; PULSE 62; O2SAT 98
[2025-02-02 09:13] VITALS: BP 147/70; BP 161/60; BP 170/70; PULSE 60; PULSE 62
[2025-02-02] MEDS: TYLENOL 650 MG PO (09:22)
[2025-02-02] MEDS: ZETIA 10 MG PO (09:22)
[2025-02-02] MEDS: CELEXA 20 MG PO (09:22)
[2025-02-02] MEDS: ZYLOPRIM 300 MG PO (09:22)
[2025-02-02] MEDS: DELTASONE 10 MG PO (09:22)
[2025-02-02] MEDS: ZANAFLEX 4 MG PO ×2 (09:22→16:13)
[2025-02-02] MEDS: SENOKOT-S 1 TABLET PO (09:22)
[2025-02-02] MEDS: FLUSH (NSS) 10 FLUSH IV (09:23)
[2025-02-02] MEDS: ROCEPHIN 1000 MG IV (09:23)
[2025-02-02] MEDS: STERILE WATER FOR INJECTION 10 ML IV (09:23)
--- NOTE | 2025-02-02 12:35 | W.DCSUMMARY ---
Discharge Summary
Discharge Data
Date of Admission: 01/31/25
Date of Discharge: 02/02/25
Total time spent discharging patient (in min): 32
-
Pending Results: No
Hospital Course
Patient 77 years old male with history of hypertension, hyperlipidemia, CVA, gout, came into the hospital with intractable headache and acute on chronic back pain and urinary symptoms with fever. Neurology consulted. Patient treated with Tylenol
tizanidine and NSAIDs. NSAIDs discontinued due to underlying CKD and had some MIHCELLE. Neurology due to nerve block and occipital region and he had some hypotension postprocedure and he was given some aggressive IV fluid hydration and improved.
Patient's headache came back and neurology reevaluating the patient again today and they will determine eligibility for discharge today. Patient also had an MRI of the lumbar spine with L2 compression fracture and he has managed with pain
medications and his pain has been better controlled. He also participated with PT OT who recommended outpatient PT and medical case worker has been consulted to arrange for outpatient PT. He also had a UTI for which he was started on IV ceftriaxone and
his urine cultures are growing negative rods and we are switching to oral cefuroxime for 5 more days and follow-up urine cultures outpatient with PCP since he is hemodynamically stable and afebrile and doing well from urinary standpoint. We are
planning on discharging him today in relatively stable condition.
Discharge duration: 32 minutes
Discharge Plan
-
Patient Disposition: Home (Routine Discharge)
Discharge Diagnosis/Procedures: Occipital neuralgia. Migraine headache. Hypotension. Probable urinary tract infection
Diet: Low Cholesterol
Activity: As tolerated
Blood Work: Please PCP to order CBC, BMP within 1 week
Referrals:
Louis Toribio MD [Family Provider, Family Practice] - in less than 1 week
Prescriptions:
New
acetaminophen [Tylenol] 325 mg tablet
650 mg PO Q6H PRN (Reason: Pain) Qty: 30 0RF
lidocaine 4 % Adhesive Patch,Medicated
1 patch topical DAILY 5 Days Qty: 5 0RF
cefuroxime axetil 500 mg Tablet
500 mg PO BID 5 Days Qty: 10 0RF
Continued
allopurinol 300 mg Tablet
300 mg PO DAILY
prednisone 10 mg Tablet
10 mg PO DAILY
rosuvastatin 40 mg Tablet
40 mg PO QPM Qty: 90 3RF
cyclobenzaprine 10 mg Tablet
10 mg PO TID PRN (Reason: muscle spasms)
citalopram 20 mg Tablet
20 mg PO DAILY
ezetimibe [Zetia] 10 mg Tablet
10 mg PO DAILY
Discharge Orders:
Discharge Patient (As Directed); Ordered 02/02/25
Ordered By: Frandy Sanchez
Discharge Date and Time
Print Language: WELSH
[2025-02-02] MEDS: CEFTIN 500 MG PO (13:59)
[2025-02-02 15:56] VITALS: BP 114/69
[2025-02-02] MEDS: LIDOCAINE 4% PATCH 1 PATCH TOPICAL (16:12)
--- NOTE | 2025-02-02 17:08 | CM ---
Patient with Dx Intractable headache likely related to occipital neuralgia, Acute on chronic back pain. PT recommends outpatient therapy.
Met with patient who was preparing for discharge.
The patient says he feels ready for discharge home today. IMM completed.
Patient agrees to outpatient PT and is aware MD will provide script.
His SO Ruthie will provide transport home today.
Message to Dr Sanchez requesting script for outpt PT.
Plan home today with script for outpt PT.
--- NOTE | 2025-02-02 17:13 | W.PN.UPDATE ---
Update Note
Progress Note Update
90201.50 occipital nerve block
trigger point inj 3+
M54.81 occipital neuralgia
M79.10
signed consent on chart
10 cc syringe 22g x 1.5 in needle drawn 6 cc bupivacaine 0.5%
bilateral occipital nerve block, needle inserted splenius capitis, aspirated, 3 cc injected each side
10 cc syringe 25g x 5/8 in needle drawn 7 cc bupivacaine 0.5% and 40 mg Kenalog-40
bilateral C5 and C6 cervical paraspinals trigger point inj 2 cc each
== END 2025-02-02 16:23 | disposition home or self-care (01) | DRG 552 ==
LOC: 3 WEST ACU 22:41
PROVIDERS: Emergency Medicine; Physician Assistant; Registered Nurse; ADMITTING PHYSICIAN Internal Medicine; ATTENDING PHYSICIAN Hospitalist; CONSULT PHYSICIAN Psychiatry & Neurology Clinical Neurophysiology; EMERGENCY PHYSICIAN Emergency Medicine; FAMILY PHYSICIAN Family Medicine
DX: M54.81 Occipital neuralgia (principal); M48.56XA Collapsed vertebra, not elsewhere classified, lumbar region, initial encounter for fracture; N39.0 Urinary tract infection, site not specified; N17.9 Acute kidney failure, unspecified; M99.01 Segmental and somatic dysfunction of cervical region; N18.9 Chronic kidney disease, unspecified; D63.1 Anemia in chronic kidney disease; E78.00 Pure hypercholesterolemia, unspecified; I12.9 Hypertensive chronic kidney disease with stage 1 through stage 4 chronic kidney disease, or unspecified chronic kidney disease; G89.29 Other chronic pain; F32.A Depression, unspecified; M19.90 Unspecified osteoarthritis, unspecified site; I95.81 Postprocedural hypotension; M10.9 Gout, unspecified; G43.909 Migraine, unspecified, not intractable, without status migrainosus; I25.10 Atherosclerotic heart disease of native coronary artery without angina pectoris; T38.0X5A Adverse effect of glucocorticoids and synthetic analogues, initial encounter; D72.829 Elevated white blood cell count, unspecified; I25.2 Old myocardial infarction; Z95.5 Presence of coronary angioplasty implant and graft; Z79.52 Long term (current) use of systemic steroids; Z86.73 Personal history of transient ischemic attack (TIA), and cerebral infarction without residual deficits; Z11.52 Encounter for screening for COVID-19
CPT/HCPCS: 80048; 80053; 81003; 81015; 85025; 85027; 85652; 87040; 87077; 87086; 87186; 87502; 87811; 96365; 96366; 96367; 96375; 97162; 99284

== ENCOUNTER → 2025-02-11 14:30 | Outpatient (REF) | payer OTHER, SELFPAY | LOC: MRI 3T 14:30 | PROVIDERS: ATTENDING PHYSICIAN Physical Medicine & Rehabilitation; FAMILY PHYSICIAN Family Medicine | DX: M54.12 Radiculopathy, cervical region (principal) | CPT/HCPCS: 72141 ==

== ENCOUNTER 2025-02-17 12:38 | Emergency (ER) | payer OTHER, SELFPAY ==
[2025-02-17] VITALS (18 sets, daily range): BP systolic 126–195; BP diastolic 70–130; BMI 26.6
--- NOTE | 2025-02-17 13:18 | ED.GENMED ---
History of Present Illness
<Steve Merritt, DO - Last Filed: 02/17/25 20:23>
General
Chief Complaint: Dizziness
Time Seen by Provider: 02/17/25 13:18
<Tessa Keith MD, Resident - Last Filed: 02/17/25 15:28>
General
Source: patient
History of Present Illness
History of Present Illness:
69 year old male with a past medical history of HTN, HLD, CVA w/ cardiac stents, and recent hospitalization for cardiac stents, comes to the ED due to increased light-headedness and loss of balance. He says that he has been having some blurry
vision, feeling off balance, and feeling dizzy, with his symptoms being much worse this morning. Patient was supposed to see PT today for his back pain and has already had 2 sessions with them already. He does not have a headache today but had a
headache all day yesterday. He states that he can walk but he is very unstable while walking. He feels like there's a whooshing sound in his ears bilaterally. He does not report any headaches or shortness of breath and has not had any fevers or
chills. He says that his blood pressures have been elevated at home as well and that he continues to have worsening back pain. He states that he has a bladder surgery/procedure planned with Dr. Lee in March.
Past History
<Steve Merritt, DO - Last Filed: 02/17/25 20:23>
Past History
ED Past Medical History: CVA, HTN, Hypercholesterolemia, [place] and Other (Osteoarthritis, Anemia)
ED Past Surgical History: Cardiac (stents)
Social History
Tobacco: Non-smoker
Alcohol: None
Drug: None
Living: with family
Employment: Retired
Review of Systems
<Tessa Keith MD, Resident - Last Filed: 02/17/25 15:28>
Review of Systems
Allergies reviewed?: Yes
Constitutional: Denies fever, fatigue or chills
EENT: Reports other (Whooshing sound bilaterally)
Respiratory: Reports no symptoms
Cardiac: Reports no symptoms
ABD/GI: Reports no symptoms
: Reports other (describes air release following urination)
Musculoskeletal: Reports back pain
Skin: Reports no symptoms
Neurological: Reports dizzy, headache and other (loss of balance)
Endocrine: Reports no symptoms
Hematologic/Lymphatic: Reports no symptoms
Psychiatric: Reports no symptoms
Phy Exam
<Tessa Keith MD, Resident - Last Filed: 02/17/25 15:28>
General Physical Exam
General Presentation: mild distress
General Skin: warm and dry
General Habitus: normal
General Mental: alert
General Hydration: appears well hydrated
ENT Exam
ENT Exam: other (Left ear canal occluded with wax)
Cardiovascular Exam
Cardiovascular Exam: regular rate/rhythm and no murmur
Pulmonary Exam
Pulmonary Exam: lungs clear, no respiratory distress and no crackles
Gastrointestinal Exam
Gastrointestinal Exam: non tender, soft and non distended
Neurological Exam
Neurological Exam: alert and oriented x3
Musculoskeletal Exam
Musculoskeletal Exam: neck pain and back tenderness
Course
<Steve Merritt, DO - Last Filed: 02/17/25 20:23>
Orders/Labs/Results
Orders:
Orders
02/17/25 12:42
Electrocardiogram (*1) Urgent
Reason for Study: Hypertension, Benign
EKG- Treatment ONCE
02/17/25 13:51
Physical Therapy Consult [Pt Eval And Treat] Urgent
Treatment: Vestibular
Activity Level: Out of Bed-Early Mobility
02/17/25 13:52
0.9% Sodium Chloride 500 ml [Nss] 500 ml IV BOLUS
02/17/25 14:06
Vital Signs- Treatment ONCE
Frequency: Once
02/17/25 14:37
Complete Blood Count/With Diff Urgent
Comprehensive Metabolic Panel Urgent
02/17/25 14:38
Losartan [Cozaar] 50 mg PO NOW STA
02/17/25 14:50
Amlodipine [Norvasc] 5 mg PO NOW STA
Carvedilol [Coreg] 6.25 mg PO NOW STA
Lisinopril [Zestril] 20 mg PO NOW STA
02/17/25 15:04
CT Head & Neck Angio W/wo IV Urgent
Comment:
Reason For Exam: severe dizzy loss balance vision change
02/17/25 18:35
Urinalysis Reflex To Culture Urgent
Date Specimen was Collected: 02/17/25
Time Specimen was Collected: 14:23
Urine Microscopic Reflex Cult Urgent
Urine Culture Urgent
ANA M Source: U
Specimen Description:
Date Specimen was Collected: 02/17/25
Time Specimen was Collected: 14:23
02/17/25 20:14
Labetalol HCl [Trandate] 10 mg IV PRN PRN
Abnormal Lab Results
02/17/25 02/17/25
14:37 18:35
WBC 11.7 H 10^3/uL
(4.8-10.8)
RBC 3.76 L 10^6/uL
(4.70-6.10)
Hgb 10.5 L g/dL
(13.0-18.0)
Hct 33.0 L %
(39.0-52.0)
MCHC 31.8 L g/dL
(33.0-37.0)
RDW 17.9 H %
(11.5-14.5)
Abs Immat Gran (auto) 0.1 H 10^3/uL
(0-0.05)
Absolute Neuts (auto) 10.9 H 10^3/uL
(1.4-6.5)
Absolute Lymphs (auto) 0.5 L 10^3/uL
(1.2-3.4)
Immature Gran % 0.7 H %
(0-0.5)
Neutrophils % 93.2 H %
(42.2-75.2)
Lymphocytes % 4.4 L %
(20.5-51.1)
Monocytes % 1.4 L %
(1.7-9.3)
BUN 32 H mg/dl
(9-20)
Glucose 136 H mg/dl
(70-99)
AST 15 L U/L
(17-59)
Urine WBC (Reflex) 16-20 A /HPF
(0-5)
Urine Bacteria (Reflex) Few A
(Negative)
Urine Albumin (Reflex) 2+ A
(Neg - Trace)
02/17/25 14:37
02/17/25 14:37
Vital Signs
Initial and Last Documented VS:
Initial Vital Signs
Temp Pulse Resp BP Pulse Ox
36.6 C 65 16 190/96 99
02/17/25 12:39 02/17/25 12:39 02/17/25 12:39 02/17/25 12:39 02/17/25 12:39
Last Documented Vital Signs
Temp Pulse Resp BP Pulse Ox
36.6 C 105 22 126/97 97
02/17/25 12:39 02/17/25 19:15 02/17/25 19:15 02/17/25 19:00 02/17/25 19:00
<Tessa Keith MD, Resident - Last Filed: 02/17/25 15:28>
Orders/Labs/Results
Orders:
Orders
02/17/25 12:42
Electrocardiogram (*1) Urgent
Reason for Study: Hypertension, Benign
EKG- Treatment ONCE
02/17/25 13:51
Physical Therapy Consult [Pt Eval And Treat] Urgent
Treatment: Vestibular
Activity Level: Out of Bed-Early Mobility
02/17/25 13:52
0.9% Sodium Chloride 500 ml [Nss] 500 ml IV BOLUS
02/17/25 14:06
Vital Signs- Treatment ONCE
Frequency: Once
02/17/25 14:37
Complete Blood Count/With Diff Urgent
Comprehensive Metabolic Panel Urgent
02/17/25 14:38
Losartan [Cozaar] 50 mg PO NOW STA
02/17/25 14:50
Amlodipine [Norvasc] 5 mg PO NOW STA
Carvedilol [Coreg] 6.25 mg PO NOW STA
Lisinopril [Zestril] 20 mg PO NOW STA
02/17/25 15:04
CT Head & Neck Angio W/wo IV Urgent
Comment:
Reason For Exam: severe dizzy loss balance vision change
02/17/25 18:35
Urinalysis Reflex To Culture Urgent
Date Specimen was Collected: 02/17/25
Time Specimen was Collected: 14:23
Urine Microscopic Reflex Cult Urgent
Urine Culture Urgent
ANA M Source: U
Specimen Description:
Date Specimen was Collected: 02/17/25
Time Specimen was Collected: 14:23
02/17/25 20:14
Labetalol HCl [Trandate] 10 mg IV PRN PRN
Abnormal Lab Results
02/17/25 02/17/25
14:37 18:35
WBC 11.7 H 10^3/uL
(4.8-10.8)
RBC 3.76 L 10^6/uL
(4.70-6.10)
Hgb 10.5 L g/dL
(13.0-18.0)
Hct 33.0 L %
(39.0-52.0)
MCHC 31.8 L g/dL
(33.0-37.0)
RDW 17.9 H %
(11.5-14.5)
Abs Immat Gran (auto) 0.1 H 10^3/uL
(0-0.05)
Absolute Neuts (auto) 10.9 H 10^3/uL
(1.4-6.5)
Absolute Lymphs (auto) 0.5 L 10^3/uL
(1.2-3.4)
Immature Gran % 0.7 H %
(0-0.5)
Neutrophils % 93.2 H %
(42.2-75.2)
Lymphocytes % 4.4 L %
(20.5-51.1)
Monocytes % 1.4 L %
(1.7-9.3)
BUN 32 H mg/dl
(9-20)
Glucose 136 H mg/dl
(70-99)
AST 15 L U/L
(17-59)
Urine WBC (Reflex) 16-20 A /HPF
(0-5)
Urine Bacteria (Reflex) Few A
(Negative)
Urine Albumin (Reflex) 2+ A
(Neg - Trace)
02/17/25 14:37
02/17/25 14:37
Vital Signs
Initial and Last Documented VS:
Initial Vital Signs
Temp Pulse Resp BP Pulse Ox
36.6 C 65 16 190/96 99
02/17/25 12:39 02/17/25 12:39 02/17/25 12:39 02/17/25 12:39 02/17/25 12:39
Last Documented Vital Signs
Temp Pulse Resp BP Pulse Ox
36.6 C 105 22 126/97 97
02/17/25 12:39 02/17/25 19:15 02/17/25 19:15 02/17/25 19:00 02/17/25 19:00
Procedures
<Tessa Keith MD, Resident - Last Filed: 02/17/25 15:28>
Foreign Body Removal-Ear
Bilateral External canal:
Tenderness: mild
Any local drainage: none
External ear canal cleaned with removal of cerumen using: irrigation
Removal of foreign body using: irrigation
Exam of canal after removal: no inflammation
<Tessa Keith MD, Resident - Last Filed: 02/17/25 15:28>
MDM/Problems Addressed
Differential Diagnosis Includes:
Uncontrolled Hypertension, vestibular dysfunction from left ear canal occlusion, UTI, back pain
MDM/Problems Addressed:
69 year old male comes to the Emergency department due to worsening light headedness and loss of balance.
EKG not different from previous EKG from 01/28/2025
Consulted PT for vestibular therapy as his symptoms might have progressively gotten worse due to ear canal occlusion
Will give 500mL IVF bolus
Will get basic labs including CBC and CMP
Will get UA for possible urinary infection
Blood pressure continues to stay elevated, patient unable to remember his HTN medications
Looked through [facility] and found patient was taking Amlodipine 5mg, Carvedilol 6.25mg BID, and Lisinopril 20mg
Will give his oral HTN medications for today
Evaluated by PT today who say he has unstable gait and difficulty with stability. No vestibular dysfunction noted upon examination.
Bilateral ear cerumen removal via irrigation performed
Will get CTA Head and Neck due to persistence of symptoms
<Steve Merritt, DO - Last Filed: 02/17/25 20:23>
*Pulse Oximetry
SaO2: 99
Oxygen Mode of Delivery: Room air
<Tessa Keith MD, Resident - Last Filed: 02/17/25 15:28>
*Pulse Oximetry
Patient hypoxic: no
*Critical Care Note
Total Time (30-74mins, 75-104mins- exclusive of procedures): Not Applicable
ED Attending Note
<Steve Merritt, - Last Filed: 02/17/25 20:23>
ED Attending Note
Patient seen and examined by attending physician: Yes
I performed a history and physical exam of patient and discussed management with resident, I reviewed resident's note and agree with documented findings and plan of care.: Yes
ED Attending Note:
I evaluated patient at bedside. The patient was markedly hypertensive upon arrival however did not take his usual medications. We have ordered his usual medications as prescribed by his ring spinner. His white count slightly high at 11.7. His
hemoglobin is improved now to 10.5. We did have physical therapy evaluate the patient and reportedly had a negative [place]-Hallpike maneuver. I did review recent neuroimaging including spine imaging. The patient does have difficulty with ambulation.
Some of his symptoms appear to be subacute to chronic. He did report being concerned about the unsteadiness and vision change. It does not appear that he had recent vascular imaging�will obtain CTA.
I discussed case with Dr. Krishnan who is concerned of worsening hydrocephalus along with a layering hyperdensity at the occipital horn of the right lateral ventricle. The patient tells me he has been having these intermittent symptoms for months
without necessarily acute worsening today. I discussed case with Dr. Hooker who recommends transfer to a tertiary care facility. I spoke to Dr. Uribe at [facility] who accepts as a level 0 transfer. I do not feel the patient needs to be flown. I did
order as needed labetalol,
-
Portions of this chart may have been created with voice recognition software.� Occasional wrong word or��sound alike� substitutions may have occurred due to the inherent limitations of voice recognition software.
Discharge Plan
Departure
Patient Disposition: Acute Care Hospital
Date of Disposition: 02/17/25
Time of Disposition: 19:47
Discharge Problem:
Hydrocephalus
Prescriptions:
No Action
allopurinol 300 mg Tablet
300 mg PO DAILY
prednisone 10 mg Tablet
10 mg PO DAILY
rosuvastatin 40 mg Tablet
40 mg PO QPM Qty: 90 3RF
cyclobenzaprine 10 mg Tablet
10 mg PO TID PRN (Reason: muscle spasms)
citalopram 20 mg Tablet
20 mg PO DAILY
ezetimibe [Zetia] 10 mg Tablet
10 mg PO DAILY
acetaminophen [Tylenol] 325 mg tablet
650 mg PO Q6H PRN (Reason: Pain) Qty: 30 0RF
lidocaine 4 % Adhesive Patch,Medicated
1 patch topical DAILY 5 Days Qty: 5 0RF
cefuroxime axetil 500 mg Tablet
500 mg PO BID 5 Days Qty: 10 0RF
Referrals:
Louis Toribio MD [Family Provider, Family Practice]
Hospital Transfer
Other hospital: [facility]
I certify that the patient requires transfer: Yes
Discussed case with accepting physician: Jojo
Reason for transfer: higher level of care
Interventions
Interventions:
*Risk Screen - Suicide Last Done: 02/17/25 12:42
*General Assessment Last Done: 02/17/25 14:42
*Neglect/Abuse Screening Last Done: 02/17/25 12:42
*ED- Fall Risk Assessment Last Done: 02/17/25 14:42
*ED COVID-19 Vaccine History Last Done: 02/17/25 14:42
ED- Neurological Assessment Last Done: 02/17/25 19:21
ED Swallowing Screen Last Done: 02/17/25 19:24
Discharge Date and Time
Print Language: FAROESE
[2025-02-17] MEDS: NSS 500 IV (14:40)
[2025-02-17] MEDS: COZAAR 50 MG PO (14:45)
[2025-02-17 14:48] LABS: Hematocrit 33.0 % (39.0-52.0); Hemoglobin 10.5 g/dL (13.0-18.0); Mean Corp Hgb Conc. 31.8 g/dL (33.0-37.0); Mean Corpuscular Volume 87.8 fL (80.0-94.0); Nucleated Red Blood Cells % 0 % (-); Platelet Count 210 10^3/uL (130-400); Red Cell Dist. Width 17.9 % (11.5-14.5)
[2025-02-17] MEDS: NORVASC 5 MG PO (14:59)
[2025-02-17] MEDS: COREG 6.25 MG PO (14:59)
[2025-02-17] MEDS: ZESTRIL 20 MG PO (14:59)
[2025-02-17 15:03] LABS: ALT (SGPT) 18 U/L (0-50); AST (SGOT) 15 U/L (17-59); Albumin 4.1 g/dl (3.5-5.0); Alkaline Phosphatase 92 U/L (38-126); Blood Urea Nitrogen 32 mg/dl (9-20); Calcium 8.9 mg/dl (8.4-10.2); Carbon Dioxide 23 mmol/L (22-30); Chloride 106 mmol/L (98-107); Estimated Creatinine Clearance 74 ml/min; Glucose 136 mg/dl (70-99); Potassium 4.6 mmol/L (3.5-5.1); Sodium 136 mmol/L (135-145); Total Protein 7.0 g/dl (6.3-8.2); eGFR > 60.00
[2025-02-17 18:59] LABS: Urine Character Clear (Clear)
[2025-02-17 19:06] LABS: Urine Red Blood Cell 0-2 /HPF (0-2); Urine Squamous Cell 16-20 /LPF (Few); Urine White Cell 16-20 /HPF (0-5)
[2025-02-17] MEDS: TRANDATE 10 MG IV (20:45)
== END 2025-02-17 21:15 | disposition short-term general hospital (02) ==
LOC: EMR 12:38
PROVIDERS: EMERGENCY PHYSICIAN Emergency Medicine; FAMILY PHYSICIAN Family Medicine
DX: G91.9 Hydrocephalus, unspecified (principal); I10 Essential (primary) hypertension; E78.00 Pure hypercholesterolemia, unspecified; I25.2 Old myocardial infarction; D64.9 Anemia, unspecified; M19.90 Unspecified osteoarthritis, unspecified site; Z86.73 Personal history of transient ischemic attack (TIA), and cerebral infarction without residual deficits; Z95.5 Presence of coronary angioplasty implant and graft
CPT/HCPCS: 99285; 96374; 69209; 70496; 70498; 80053; 81003; 81015; 85025; 87086; 93005; Q9967

== ENCOUNTER 2025-03-01 11:40 | Emergency (ER) | payer OTHER, SELFPAY ==
[2025-03-01] VITALS (11 sets, daily range): BP systolic 99–142; BP diastolic 54–112; BMI 23.9
[2025-03-01 12:23] LABS: Hematocrit 34.3 % (39.0-52.0); Hemoglobin 11.4 g/dL (13.0-18.0); Mean Corp Hgb Conc. 33.2 g/dL (33.0-37.0); Mean Corpuscular Volume 84.3 fL (80.0-94.0); Nucleated Red Blood Cells % 0 % (-); Platelet Count 269 10^3/uL (130-400); Red Cell Dist. Width 17.2 % (11.5-14.5)
[2025-03-01 12:29] LABS: Urine Character Cloudy (Clear)
[2025-03-01 12:46] LABS: Urine White Cell >100 /HPF (0-5)
--- NOTE | 2025-03-01 14:04 | ED.GENMED ---
History of Present Illness
General
Chief Complaint: Change in Mental Status
Source: records and family
Exam Limitations: clinical condition
Time Seen by Provider: 03/01/25 12:13
History of Present Illness
History of Present Illness:
69-year-old male complicated recent history. Was currently in rehabilitation. This was after a stay in [facility] for a possible intracerebral bleed/hydronephrosis. Per the niece patient was not doing well when he was discharged. He needed
assistance with ambulation. Since yesterday there has been increased confusion and lethargy. They stopped some of his pain management. [place] this might be an etiology or explanation.
Past History
Past History
ED Past Medical History: CVA, HTN, Hypercholesterolemia, [place] and Other (Osteoarthritis, Anemia)
ED Past Surgical History: Cardiac (stents)
Social History
Tobacco: Non-smoker
Alcohol: None
Drug: None
Living: with family
Employment: Retired
Review of Systems
Review of Systems
Unable to obtain full review of systems at this time due to: due to acuity
All Other Systems: Not applicable
Phy Exam
Physical Exam
Physical Exam:
GENERAL: Lethargic.
EYE: Orbits normal.
NECK: Supple
ENT: Pharynx without erythema
CARDIAC: Regular rate and rhythm without any obvious murmurs.
LUNGS: Clear breath sounds,normal
ABDOMEN: Soft, without focal tenderness or distention
NEUROLOGICAL: Lethargic. Does not respond to verbal stimuli. Does move nonfocally and respond to pain
SKIN: Warm and dry, no rash or lesion, no discoloration, skin intact.
MUSCULOSKELETAL: No edema,no deformity.Good color
Course
Orders/Labs/Results
Orders:
Orders
03/01/25 11:57
Electrocardiogram (*1) Urgent
Reason for Study: Other
Other Reason for Exam: Possible Sepsis
Cardiac Monitoring- Treatment ONCE
IV Insert/Care/Rem.- Treatment PRN
Straight cath- Treatment ONCE
O2 Therapy [RESP] Urgent
Titrate/Wean O2 to maintain O2 sat greater than (%): 93
Special Instructions: TO MAINTAIN CONTINUOUS O2 SATS > OR = 93%
Pulse Ox/cont/shift [RESP] Urgent
Quantity: 1
Special Instructions: CONTINUOUS
03/01/25 11:58
EKG- Treatment ONCE
03/01/25 12:10
Complete Blood Count/With Diff Urgent
Urinalysis Reflex To Culture Urgent
Date Specimen was Collected: 03/01/25
Time Specimen was Collected: 11:58
Urine Microscopic Reflex Cult Urgent
Urine Culture Urgent
ANA M Source: U
Specimen Description:
Date Specimen was Collected: 03/01/25
Time Specimen was Collected: 11:58
03/01/25 12:23
CT Head W/o Iv Contrast Urgent
Comment:
Reason For Exam: Encephalopathic
CR Chest Portable - 1 View Urgent
Comment:
Reason For Exam: Change in mental status/weak
Reason Study Needs to be Portable: Patient Unstable
03/01/25 12:32
Lactic Acid Q4H
Comment: CANCEL 2nd LACTIC ACID IF 1st LACTIC ACID IS LESS THAN 2
Blood Culture Q30M
ANA M Source: Blood/Venous
Specimen Description:
03/01/25 13:08
Cefepime HCl [Maxipime] 2,000 mg IV NOW STA
03/01/25 14:09
Sterile Water [Sterile Water For Injection] 10 ml .ROUTE .STK-MED ONE
03/01/25 14:22
Comprehensive Metabolic Panel Urgent
03/01/25 14:29
Blood Culture Q30M
ANA M Source: Blood/Venous
Specimen Description:
03/01/25 14:57
0.9% Sodium Chloride 1000 ml [Nss] 1,000 ml IV BOLUS
03/01/25 Dinner
NPO
Allow oral meds: No
Allow clear liquids: No
03/01/25 17:05
0.9% Sodium Chloride 500 ml [Nss] 500 ml IV BOLUS
Abnormal Lab Results
03/01/25 03/01/25
12:10 14:22
RBC 4.07 L 10^6/uL
(4.70-6.10)
Hgb 11.4 L g/dL
(13.0-18.0)
Hct 34.3 L %
(39.0-52.0)
RDW 17.2 H %
(11.5-14.5)
Abs Immat Gran (auto) 0.1 H 10^3/uL
(0-0.05)
Absolute Neuts (auto) 8.4 H 10^3/uL
(1.4-6.5)
Immature Gran % 0.9 H %
(0-0.5)
Neutrophils % 81.9 H %
(42.2-75.2)
Lymphocytes % 12.3 L %
(20.5-51.1)
BUN 95 H mg/dl
(9-20)
Creatinine 3.8 H mg/dL
(0.7-1.3)
Glucose 102 H mg/dl
(70-99)
Ur Occult Blood Reflex 3+ A
(Negative)
Urine Bilirubin 1+ A
(Negative)
Leukocyte Esterase Rfl 3+ A
(Negative)
Urine WBC (Reflex) >100 A /HPF
(0-5)
Urine Bacteria (Reflex) Many A
(Negative)
Urine Albumin (Reflex) 3+ A
(Neg - Trace)
03/01/25 12:10
03/01/25 14:22
Vital Signs
Initial and Last Documented VS:
Initial Vital Signs
Pulse Resp BP
79 12 103/75
03/01/25 11:50 03/01/25 11:50 03/01/25 11:50
Last Documented Vital Signs
Temp Pulse Resp BP Pulse Ox
99.1 F 70 17 126/112 97
03/01/25 11:59 03/01/25 17:00 03/01/25 17:00 03/01/25 17:00 03/01/25 15:30
MDM/Problems Addressed
Differential Diagnosis Includes:
Patient with clear mental status changes and encephalopathic. To consider UTI/medications/electrolyte issues/recurrent neurologic issues.
*Pulse Oximetry
SaO2: 100
Data Reviewed
Review of Other/Old Records Reveals: Labs, Records, Radiology Studies, Testing and Discharge Summary
Update Note
Update Note:
1615... Family very upset at this time about being transferred back to [facility]. They would like us to look into another facility. I am currently contacting [facility] as per their request. They understand this delay could affect
his medical care.
1630... Discussed with neurosurgery at [facility] who is comfortable with this patient. They discussed with the child attendant who is also comfortable. Family very much prefers going to [facility]. They understand this there is some delay in making
these changes
1645... There are no beds at [facility]. We are now trying [facility]
1705... Discussed with neurosurgery at [facility]. They are comfortable managing this patient. Dr. koenig. Accepts patient they are checking out of bed
ED Attending Note
-
Portions of this chart may have been created with voice recognition software.� Occasional wrong word or��sound alike� substitutions may have occurred due to the inherent limitations of voice recognition software.
Discharge Plan
Departure
Patient Disposition: [facility]
Date of Disposition: 03/01/25
Time of Disposition: 15:57
Discharge Problem:
Intraventricular bleed/hydrocephalus, Prerenal dehydration, UTI
Prescriptions:
No Action
allopurinol 300 mg Tablet
300 mg PO DAILY
prednisone 10 mg Tablet
10 mg PO BID
ezetimibe [Zetia] 10 mg Tablet
10 mg PO HS
metformin 500 mg tablet
500 mg PO DAILY
acetaminophen 325 mg Tablet
650 mg PO Q6H PRN (Reason: mild pain/fever)
carvedilol 6.25 mg Tablet
6.25 mg PO BID
lisinopril 20 mg Tablet
20 mg PO DAILY
amlodipine 5 mg tablet
5 mg PO DAILY
aspirin 81 mg Tablet,Delayed Release (Dr/Ec)
81 mg PO DAILY
acetaminophen 500 mg Tablet
500 mg PO TID
magnesium hydroxide [Milk of Magnesia] 400 mg/5 mL Suspension
30 ml PO DAILY PRN (Reason: if no BM in 3 days)
Rx Instructions:
give two hours prior or after all other medication
baclofen 10 mg Tablet
10 mg PO Q8HPRN PRN (Reason: muscle spasm)
bisacodyl 10 mg Suppository
10 mg OK DAILY PRN (Reason: if no results from MOM)
Fleet Enema 19-7 gram/118 mL Enema
118 ml OK DAILYPRN PRN (Reason: if bisacodyl ineffective)
furosemide 20 mg tablet
20 mg PO DAILY
gabapentin 100 mg Capsule
100 mg PO BID
Rx Instructions:
hold for sedation
oxycodone 5 mg tablet
5 mg PO Q6HPRN PRN (Reason: moderate pain)
escitalopram oxalate 20 mg tablet
20 mg PO DAILY
glucagon HCl [Glucagon (HCl) Emergency Kit] 1 mg Recon Soln
1 mg IM DAILYPRN PRN (Reason: hypoglycemia)
Rx Instructions:
administer if accu-check below 60, pt unresponsive or unable to swallow
rosuvastatin 40 mg tablet
40 mg PO DAILY
Referrals:
Mormonism,Michelle M., [Family Provider]
Hospital Transfer
Other hospital: [facility]
I certify that the patient requires transfer: Yes
Reason for transfer: higher level of care
Interventions
Interventions:
*Risk Screen - Suicide Last Done: 03/01/25 13:09
*Neglect/Abuse Screening Last Done: 03/01/25 13:09
*ED- Fall Risk Assessment Last Done: 03/01/25 13:12
ED- Neurological Assessment Last Done: 03/01/25 13:00
ED Swallowing Screen Last Done: 03/01/25 12:20
Discharge Date and Time
Print Language: MALAY
[2025-03-01] MEDS: MAXIPIME 2000 MG IV (14:13)
[2025-03-01 14:43] LABS: ALT (SGPT) 22 U/L (0-50); AST (SGOT) 20 U/L (17-59); Albumin 4.2 g/dl (3.5-5.0); Alkaline Phosphatase 99 U/L (38-126); Blood Urea Nitrogen 95 mg/dl (9-20); Calcium 8.7 mg/dl (8.4-10.2); Carbon Dioxide 22 mmol/L (22-30); Chloride 102 mmol/L (98-107); Glucose 102 mg/dl (70-99); Potassium 4.9 mmol/L (3.5-5.1); Sodium 138 mmol/L (135-145); Total Protein 7.2 g/dl (6.3-8.2)
[2025-03-01 14:55] LABS: Estimated Creatinine Clearance 18 ml/min; eGFR 16.31
[2025-03-01] MEDS: NSS 1000 IV (15:10)
[2025-03-01] MEDS: NSS 500 IV (17:34)
== END 2025-03-01 18:40 | disposition short-term general hospital (02) ==
LOC: EMR 11:40
PROVIDERS: Radiology Neuroradiology; EMERGENCY PHYSICIAN Emergency Medicine; FAMILY PHYSICIAN Internal Medicine
DX: I61.5 Nontraumatic intracerebral hemorrhage, intraventricular (principal); E86.0 Dehydration; N39.0 Urinary tract infection, site not specified; Z86.73 Personal history of transient ischemic attack (TIA), and cerebral infarction without residual deficits; I10 Essential (primary) hypertension; E78.00 Pure hypercholesterolemia, unspecified; Z95.5 Presence of coronary angioplasty implant and graft
CPT/HCPCS: 96374; 96361; 99285; 70450; 71045; 80053; 81003; 81015; 83605; 85025; 87040; 87086; 93005

== ENCOUNTER 2025-05-18 19:02 | Emergency (ER) | payer OTHER, SELFPAY ==
[2025-05-18 19:09] VITALS: BP 124/73
[2025-05-18 19:44] LABS: Hematocrit 31.5 % (39.0-52.0); Hemoglobin 10.0 g/dL (13.0-18.0); Mean Corp Hgb Conc. 31.7 g/dL (33.0-37.0); Mean Corpuscular Volume 91.0 fL (80.0-94.0); Nucleated Red Blood Cells % 0 % (-); Platelet Count 267 10^3/uL (130-400); Red Cell Dist. Width 13.6 % (11.5-14.5)
[2025-05-18 19:56] LABS: INR 1.05; PT 14.0 Sec (11.4-14.6)
[2025-05-18 20:01] LABS: ALT (SGPT) 101 U/L (0-50); AST (SGOT) 36 U/L (17-59); Albumin 4.3 g/dl (3.5-5.0); Alkaline Phosphatase 99 U/L (38-126); Blood Urea Nitrogen 38 mg/dl (9-20); Calcium 9.0 mg/dl (8.4-10.2); Carbon Dioxide 27 mmol/L (22-30); Chloride 96 mmol/L (98-107); Glucose 155 mg/dl (70-99); Potassium 3.6 mmol/L (3.5-5.1); Sodium 135 mmol/L (135-145); Total Protein 7.1 g/dl (6.3-8.2); eGFR 59.10
[2025-05-18 20:11] LABS: Troponin I 0.015 ng/ml
[2025-05-18 22:00] VITALS: BP 137/51
[2025-05-18 22:02] VITALS: BMI 25.0
[2025-05-18 23:00] VITALS: BP 136/72
--- NOTE | 2025-05-18 23:49 | EDRN ---
Pt ambulated in hallway with walker with minimal assistance. Pt noted to be tachypneic while ambulating, but noted to have normal respiration pattern with no increased work of breathing when spoken to. Speaking in full sentences to myself and
James. Pulse ox 99-100% for duration of walking. Assisted back into bed and reconnected to surveillance system monitor.
--- NOTE | 2025-05-18 23:51 | ED.GENMED ---
History of Present Illness
General
Chief Complaint: Breathing Problem
Source: patient
Exam Limitations: none
Time Seen by Provider: 05/18/25 22:24
Nursing documentation reviewed up to this point in time: agreed with
History of Present Illness
History of Present Illness:
Note:
CHIEF COMPLAINT(S)
Shortness of breath.
HISTORY OF PRESENT ILLNESS
The patient is a 69-year-old male who presents with complaints of shortness of breath, especially noticeable when talking or exerting himself, such as walking short distances of about 30 feet. This symptom has been persistent for a while. The
patient resides in a [facility] and reports that staff there have not taken his complaints seriously. He describes the sensation similar to experiences before having coronary stents placed. He also reports significant swelling in his feet, which
have persisted despite being on diuretics for three months. The patient believes that he may not be receiving adequate hydration, as he perceives his water intake is limited at the [facility], which he correlates with feeling stiff and concerns
about kidney issues. Furthermore, he reports difficulty swallowing fluids as he tends to choke. Despite these symptoms, his vitals are stable, with an oxygen saturation of 99% on room air, blood pressure at 137/51, and pulse rate within normal
ranges. The patient expressed concerns about potential fluid retention affecting his lungs, though he is unsure of what that might feel like.
PAST MEDICAL AND SURIGICAL HISTORY
The patient reports having three coronary stents placed in the past.
SOCIAL HISTORY
The patient smoked approximately 50 years ago and has since ceased smoking.
REVIEW OF SYSTEMS
- Respiratory: Shortness of breath, especially with exertion and talking. Concerns about fluid in the lungs.
- Cardiovascular: Swelling in the feet, feels similar to pre-coronary stent symptoms.
- Urological: Feeling of urgency to void but reports low urine output.
- Gastrointestinal: Difficulty swallowing fluids without choking.
PHYSICAL EXAM
General: Alert, no acute distress.
Skin: Warm, dry.
Head: Normocephalic, atraumatic.
Neck: Supple, trachea midline.
Eye Ears, nose, mouth and throat: Oral mucosa moist.
Cardiovascular: Normal peripheral perfusion, No edema.
Respiratory: Respirations are non-labored.
Gastrointestinal: Abdomen nondistended.
Back: Normal range of motion, Normal alignment.
Musculoskeletal: Normal ROM, normal strength.
Neurological: Alert and oriented to person, place, time, and situation, No focal neurological deficit observed.
Psychiatric: Cooperative, appropriate mood & affect.
PLAN
1. Await results from chest x-ray.
2. Perform a bladder scan to evaluate urine retention.
3. Conduct urinalysis.
4. Walk test to monitor for changes in oxygen saturation with exertion.
5. Evaluate need for mobility assistance such as a walker.
DIFFERENTIAL DIAGNOSIS
The Differential Diagnosis includes, in no particular order and is not limited to:
1. Congestive Heart Failure
2. Chronic Obstructive Pulmonary Disease Exacerbation
3. Pulmonary Edema
4. Pleural Effusion
5. Interstitial Lung Disease
6. Diuretic-Induced Dehydration
7. Acute Kidney Injury
8. Urinary Retention
9. Dysphagia-related Aspiration
10. Cardiomyopathy
CARE-UPDATE
05/18/25 - 23:53
Patient successfully ambulated with a walker; oxygen saturation maintained above 99% throughout, even during a brief episode of subjective dyspnea, indicating stable respiratory function under observation period.
Disposition:
SUMMARY OF ENCOUNTER
The patient, a 69-year-old male, presented to the emergency department with complaints of shortness of breath, particularly noticeable when walking. This symptom has persisted for several weeks. A chest x-ray was performed, and the interpretation
was normal, showing no significant processes. The patient was observed ambulating around the department with stable oxygen saturation.
DISPOSITION
Discharge.
ASSESSMENT
The patient is exhibiting symptoms consistent with shortness of breath, likely due to non-critical etiologies given stable vitals and normal chest x-ray findings.
INDEPENDENT REVIEW OF LABS AND INTERPRETATION OF TESTS
- My independent chest x-ray interpretation is normal, with no wan pathological processes identified.
MEDICAL DECISION MAKING
- Number and Complexity of Problems Addressed: Chronic conditions affecting care, including history of coronary stents, possible congestive heart failure, and potential fluid retention.
- Data:
Category 1: The chest x-ray was reviewed with my independent interpretation showing no abnormal processes.
- Risk: The patient was deemed safe for discharge with reassurance as the chest x-ray and ambulation tests were reassuring.
DIAGNOSIS
Shortness of breath, unspecified (R06.02).
Past History
Past History
ED Past Medical History: CVA, HTN, Hypercholesterolemia, [place] and Other (Osteoarthritis, Anemia)
ED Past Surgical History: Cardiac (stents)
Social History
Tobacco: Non-smoker
Alcohol: None
Drug: None
Living: with family
Employment: Retired
Phy Exam
Physical Exam
Physical Exam:
.
Scores
Heart Failure Risk
Heart Failure Risk Score: Not Applicable
Course
Orders/Labs/Results
Orders:
Orders
05/18/25
Electrocardiogram (*1) Stat
Reason for Study: Chest Pain
05/18/25 19:33
Complete Blood Count/With Diff Urgent
Comprehensive Metabolic Panel Urgent
NT-proBNP Urgent
Prothrombin Time Urgent
Troponin I Urgent
05/19/25 00:08
Chest [CR Chest - 2 Views ] Urgent
Comment:
Reason For Exam: dyspnea
05/19/25 04:11
Electrocardiogram (*1) Urgent
Reason for Study: Other
Other Reason for Exam: dyspnea
EKG- Treatment ONCE
Abnormal Lab Results
05/18/25
19:33
RBC 3.46 L 10^6/uL
(4.70-6.10)
Hgb 10.0 L g/dL
(13.0-18.0)
Hct 31.5 L %
(39.0-52.0)
MCHC 31.7 L g/dL
(33.0-37.0)
Abs Immat Gran (auto) 0.2 H 10^3/uL
(0-0.05)
Absolute Neuts (auto) 7.7 H 10^3/uL
(1.4-6.5)
Immature Gran % 1.7 H %
(0-0.5)
Neutrophils % 77.6 H %
(42.2-75.2)
Lymphocytes % 15.5 L %
(20.5-51.1)
Chloride 96 L mmol/L
(98-107)
BUN 38 H mg/dl
(9-20)
Glucose 155 H mg/dl
(70-99)
ALT 101 H U/L
(0-50)
05/18/25 19:33
05/18/25 19:33
Vital Signs
Initial and Last Documented VS:
Initial Vital Signs
Temp Pulse Resp BP Pulse Ox
98.9 F 105 16 124/73 98
05/18/25 19:09 05/18/25 19:09 05/18/25 19:09 05/18/25 19:09 05/18/25 19:09
Last Documented Vital Signs
Temp Pulse Resp BP Pulse Ox
98.9 F 67 20 123/87 95
05/18/25 19:09 05/19/25 03:00 05/19/25 02:50 05/19/25 09:00 05/19/25 09:00
*Pulse Oximetry
SaO2: 97
Oxygen Mode of Delivery: Room air
Patient hypoxic: no
*Critical Care Note
Total Time (30-74mins, 75-104mins- exclusive of procedures): Not Applicable
ED Attending Note
-
Portions of this chart may have been created with voice recognition software.� Occasional wrong word or��sound alike� substitutions may have occurred due to the inherent limitations of voice recognition software.
Discharge Plan
Departure
Patient Disposition: Home (Routine Discharge)
Date of Disposition: 05/19/25
Time of Disposition: 04:13
Patient with high blood pressure during this ER visit?: Yes
Condition: Good
Discharge Problem:
Acute dyspnea, Leg swelling
Instructions: Swelling, Shortness of breath
Prescriptions:
No Action
allopurinol 300 mg Tablet
300 mg PO DAILY
prednisone 10 mg Tablet
10 mg PO BID
ezetimibe [Zetia] 10 mg Tablet
10 mg PO HS
metformin 500 mg tablet
500 mg PO DAILY
acetaminophen 325 mg Tablet
650 mg PO Q6H PRN (Reason: mild pain/fever)
carvedilol 6.25 mg Tablet
6.25 mg PO BID
lisinopril 20 mg Tablet
20 mg PO DAILY
amlodipine 5 mg tablet
5 mg PO DAILY
aspirin 81 mg Tablet,Delayed Release (Dr/Ec)
81 mg PO DAILY
acetaminophen 500 mg Tablet
500 mg PO TID
magnesium hydroxide [Milk of Magnesia] 400 mg/5 mL Suspension
30 ml PO DAILY PRN (Reason: if no BM in 3 days)
Rx Instructions:
give two hours prior or after all other medication
baclofen 10 mg Tablet
10 mg PO Q8HPRN PRN (Reason: muscle spasm)
bisacodyl 10 mg Suppository
10 mg MS DAILY PRN (Reason: if no results from [facility])
Fleet Enema 19-7 gram/118 mL Enema
118 ml MS DAILYPRN PRN (Reason: if bisacodyl ineffective)
furosemide 20 mg tablet
20 mg PO DAILY
gabapentin 100 mg Capsule
100 mg PO BID
Rx Instructions:
hold for sedation
oxycodone 5 mg tablet
5 mg PO Q6HPRN PRN (Reason: moderate pain)
escitalopram oxalate 20 mg tablet
20 mg PO DAILY
glucagon HCl [Glucagon (HCl) Emergency Kit] 1 mg Recon Soln
1 mg IM DAILYPRN PRN (Reason: hypoglycemia)
Rx Instructions:
administer if accu-check below 60, pt unresponsive or unable to swallow
rosuvastatin 40 mg tablet
40 mg PO DAILY
Referrals:
Louis Toribio MD [Family Provider, Family Practice]
Activity Restrictions/Additional Instructions:
Thank You for choosing [facility].
It was a pleasure meeting you and taking part in your care. We hope for your continued healing and wellness.
Please read discharge instructions in their entirety. However, they are for general education and may not describe your exact diagnosis at discharge. Information on your ER visit and medical conditions were discussed with you along with appropriate
follow up information...
If indicated, please take your medications as instructed and indicated on discharge paperwork.
Please schedule a follow up appointment as directed. Call to schedule an appointment
Please return to the emergency department with ANY change in, persisting, or worsening of symptoms. If any of your symptoms do not improve, or persist, or become more severe within 6-12 hours, please return to the emergency department for further
care.
Please return to the emergency department if you develop a headache, neck pain/stiffness, fever greater than 100.4F, chest pain, shortness of breath, persistent nausea, vomiting, slurred speech, difficulty walking, numbness/tingling, weakness, signs
of infection or any other symptoms that are worrisome to you.
If you have any questions or concerns please do not hesitate to call the Hospital at .
Interventions
Interventions:
*Risk Screen - Suicide Last Done: 05/18/25 19:09
*General Assessment Last Done: 05/18/25 19:09
*Neglect/Abuse Screening Last Done: 05/18/25 19:09
*ED- Fall Risk Assessment Last Done: 05/18/25 19:09
*ED COVID-19 Vaccine History Last Done: 05/18/25 19:09
*ED Influenza Vaccine History Last Done: 05/18/25 19:09
*Nursing Disposition Last Done: 05/19/25 10:55
ED- Cardiac Assessment Last Done: 05/18/25 22:02
ED- Pulmonary Assessment Last Done: 05/18/25 22:02
Discharge Date and Time
Discharge Date/Time: 05/19/25 10:55
Print Language: YI
[2025-05-19] VITALS: BP 126/61
[2025-05-19 02:50] VITALS: BP 144/77
[2025-05-19 03:00] VITALS: BP 140/78
[2025-05-19 09:00] VITALS: BP 123/87
== END 2025-05-19 10:55 | disposition home or self-care (01) ==
LOC: EMR 19:02
PROVIDERS: Student in an Organized Health Care Education/Training Program; EMERGENCY PHYSICIAN Student in an Organized Health Care Education/Training Program; FAMILY PHYSICIAN Family Medicine
DX: R06.00 Dyspnea, unspecified (principal); R60.0 Localized edema; I10 Essential (primary) hypertension; E78.00 Pure hypercholesterolemia, unspecified; I25.2 Old myocardial infarction; M19.90 Unspecified osteoarthritis, unspecified site; Z79.82 Long term (current) use of aspirin; Z86.73 Personal history of transient ischemic attack (TIA), and cerebral infarction without residual deficits; Z95.5 Presence of coronary angioplasty implant and graft
CPT/HCPCS: 99284; 71046; 80053; 83880; 84484; 85025; 85610; 93005

== ENCOUNTER 2025-07-03 06:15 | Day surgery (SDC) | payer OTHER, SELFPAY ==
[2025-07-03 07:26] LABS: Glucose - Point of Care 103 mg/dl (70-99)
[2025-07-03 07:34] VITALS: BMI 24.2
[2025-07-03 07:36] VITALS: BP 143/64
[2025-07-03 09:01] VITALS: BP 135/68
[2025-07-03 09:15] VITALS: BP 148/69
[2025-07-03 09:30] VITALS: BP 155/72
== END 2025-07-03 10:20 | disposition home or self-care (01) ==
LOC: SDS 06:15
PROVIDERS: ATTENDING PHYSICIAN Surgery
DX: Z12.11 Encounter for screening for malignant neoplasm of colon (principal); D12.0 Benign neoplasm of cecum; D12.2 Benign neoplasm of ascending colon; D12.3 Benign neoplasm of transverse colon; D12.4 Benign neoplasm of descending colon; K57.30 Diverticulosis of large intestine without perforation or abscess without bleeding
CPT/HCPCS: 45385; 82962; 88305